=== PATIENT | female | born 1940 | race Caucasian/White ===

== ENCOUNTER 2016-04-27 10:35 | Emergency (ER) | payer OTHER, MEDICARE ==
[~2016-04-27 10:35] MED LIST: ACET-1256 PO; CHOL100027 PO; CYAN100020 PO; DOCU100C31 PO; LEVO88TA PO; LISI5TAB PO; MAGN400T6 PO; OMEP10CA2 PO; PRLSR20 PO
[2016-04-27 10:40] VITALS: TEMP 36.8; Ht 179.1 cm
[2016-04-27] MEDS ORDERED: FERR1TAB24 PO (11:21)
[2016-04-27] MEDS ORDERED: PRLSRP PO (11:21)
[2016-04-27] MEDS ORDERED: NF406 PO (11:21)
[2016-04-27] MEDS ORDERED: OPTIRAY 320 IV PRN (12:15)
[2016-04-27 12:25] VITALS: O2SAT 97
[2016-04-27 12:48] LABS: BASO % 0.7 %; BASO ABS # 0.03 K/uL (0-0.2); COMPLETE YES; EOS % 1.3 %; HEMATOCRIT 41.2 % (37-47); IG% 0.2 %; LYMPH % 38.7 %; LYMPH ABS # 1.78 K/uL (1.2-3.4); MEAN CELL VOLUME 93.8 fL (80-100); MEAN CORPUSCULAR HEMOGLOBIN 32.3 pg (25-34); MEAN CORPUSCULAR HGB CONC 34.5 g/dl (32-36); MEAN PLATELET VOLUME 9.8 fL (7.4-10.4); MONO % 15.4 %; NEUT % 43.7 %; PLATELET COUNT 186 K/uL (130-400); RED BLOOD COUNT 4.39 M/uL (4.2-5.4)
[2016-04-27 13:00] LABS: PROTHROMBIN TIME (PATIENT) 10.5 SECONDS (9.0-12.0)
[2016-04-27 13:06] LABS: BLOOD UREA NITROGEN 15 mg/dl (7-18); BUN/CREATININE RATIO 21.4 (10-20); CALCIUM 8.8 mg/dl (8.5-10.1); CARBON DIOXIDE 26 mmol/L (21-32); CHLORIDE 103 mmol/L (98-107); CREATININE 0.72 mg/dl (0.60-1.20); GLUCOSE 92 mg/dl (70-99); SODIUM 136 mmol/L (136-145)
--- NOTE | 2016-04-27 14:30 | DIAGNOSTIC IMAGING REPORT ---
CHEST CTA for PULMONARY ARTERIES CT DOSE: 503.36 mGycm HISTORY: Chest pain dyspnea TECHNIQUE: Multiaxial CT images of the chest were performed following the intravenous administration of contrast to evaluate the pulmonary arteries. Maximal intensity projection images were also obtained. COMPARISON STUDY: 12/17/2015 FINDINGS: There is a normal caliber thoracic aorta with no evidence for dissection. There is no evidence for pulmonary embolus. No pleural effusions. No pneumothorax. The liver and spleen are unremarkable. No mediastinal or hilar lymphadenopathy. The central airways are patent. The lungs are clear. Slight chronic interstitial prominence throughout both hemithoraces. IMPRESSION: No evidence for pulmonary embolus. Slight nonspecific interstitial prominence Electronically signed by: Francisco Escobar M.D. 04/27/2016 2:29 PM Dictated Date/Time: 04/27/2016 2:26 PM
[2016-04-27 16:29] VITALS: BP 138/86; PULSE 61; O2SAT 98
--- NOTE | 2016-04-27 18:25 | EMERGENCY ROOM VISIT NOTE ---
History Report prepared by Missy: Darrel Squires Under the Supervision of: Dr. Bora Corona M.D. First contact with patient: 11:59 Chief Complaint: FLU LIKE SX Stated Complaint: FLU X 6 DAYS, CP, PNEUMONIA/EMBOLISM History of Present Illness The patient is a 76 year old female who presents to the Emergency Room with complaints of persistent left upper back pain for the past few days. The patient notes that she was diagnosed with the flu 5 days ago and started having symptoms 6 days ago. The patient complained of cough, fever, and shortness of breath. She notes that over the past couple of days she has had worsening back pain and some chest pain that feels similar to the back pain. She rates her back pain as a 4 out of 10 in severity and describes it as dull and achy. The discomfort is somewhat relieved when she is sitting up and worsened when she is laying down. The patient presented to the ED today because she was concerned for pneumonia or blood clots since she has a history of these and is experiencing similar symptoms. She denies leg swelling or pain. The patient recently drove to [place] over the weekend. Source of History: patient Onset: the past few days Position: back (upper left) Symptom Intensity: 4/10 in severity Quality: ache, dull Modifying Factors (Worsening): other (laying down) Modifying Factors (Relieving): other (sitting up) Associated Symptoms: + SOB, + chest pain, + cough, + fevers Note: Denies: leg swelling or pain Review of Systems See HPI for pertinent positives & negatives. A total of 10 systems reviewed and were otherwise negative. Past Medical & Surgical Medical Problems: (1) Benign hypertension (2) DVT (deep venous thrombosis) (3) Gastroesophageal reflux disease (4) Hiatal hernia (5) Hyperlipidemia (6) Low back pain with sciatica (7) Pulmonary embolism (8) Right Hip DJD Surgical Problems: (1) S/P knee replacement Family History No significant family history Social History Smoking Status: Never Smoker Alcohol Use: occasionally Marital Status: Housing Status: lives with family Occupation Status: retired Current/Historical Medications Scheduled Aspirin (Aspirin 81), 81 MG PO DAILY Cholecalciferol (Vitamin D 1000 Unit), 1,000 INTER.UNIT PO BID Cyanocobalamin (Vitamin B12), 1,000 MCG PO HS Ferrous Sulfate (Feosol), 65 MG PO DAILY Fish Oil ([place]-3), 1,200 MG PO QAM Flaxseed (Linseed) (Flax Oil), 1,200 MG PO HS Levothyroxine Sodium (Synthroid), 88 MCG PO QAM Lisinopril (Prinivil), 5 MG PO QAM Multivitamins (Daily Darnell), 1 TAB PO DAILY Omeprazole (Prilosec), 20 MG PO Q2D Omeprazole (Prilosec), 10 MG PO Q2D Oseltamivir Phosphate (Tamiflu), 75 MG PO BID Simvastatin (Zocor), 5 MG PO HS [Iron], 65 MG PO DAILY Scheduled PRN Acetaminophen (Tylenol), 500 MG PO UD PRN for Pain Docusate Sodium (Docusate Sodium), 100 MG PO DAILY PRN for Constipation Allergies Coded Allergies: Adhesives (Verified Allergy, Unknown, REDNESS FROM EKG PATCHES, 04/27/16) Codeine (Verified Allergy, Unknown, DOPEY, 04/27/16) Lorazepam (Verified Allergy, Unknown, NAUSEA, 04/27/16) Oxycodone (Verified Allergy, Unknown, NAUSEA AND VOMITING, 04/27/16) POLLEN (Verified Allergy, Unknown, EYES AND THROAT ITCHY, 04/27/16) Propoxyphene (Verified Allergy, Unknown, nausea, 04/27/16) N/V--NEARLY COMATOSE? Erythromycin (Verified Adverse Reaction, Unknown, NAUSEA, 04/27/16) Morphine (Verified Adverse Reaction, Unknown, HALLUCINATIONS, 04/27/16) Prednisone (Verified Adverse Reaction, Unknown, "High dose prednisone" -- extreme anxiety, 04/27/16) Tramadol (Verified Adverse Reaction, Unknown, "loopy", 04/27/16) Physical Exam Vital Signs Date Time Temp Pulse Resp B/P Pulse Ox O2 Delivery O2 Flow Rate FiO2 04/27/16 16:29 61 16 138/86 98 04/27/16 15:03 58 15 133/80 95 Room Air 04/27/16 13:52 61 16 134/67 96 Room Air 04/27/16 12:41 66 04/27/16 12:25 62 18 154/62 96 Room Air 04/27/16 12:25 97 Room Air 04/27/16 10:40 36.8 70 18 135/106 97 Room Air Physical Exam Constitutional: Vital signs reviewed. Eyes: Pupils are equal round reactive to light. Conjunctiva are noninjected. ENT: Pharynx is clear without erythema or exudate. Mucous membranes are moist. Neck supple without meningeal signs. Respiratory: Clear to auscultation bilaterally. Breath sounds are equal bilaterally. Cardiovascular: Regular rate and rhythm. No rubs or gallops. GI: Soft, nondistended and nontender. Bowel sounds are present. Musculoskeletal: No peripheral edema. No lower extremity tenderness. Left chest wall and left mid-thoracic tenderness to palpation. Integumentary: No cyanosis. Neurological: The patient is awake and alert. No focal deficits. Psychiatric: Normal affect. Medical Decision & Procedures ER Provider Diagnostic Interpretation: Radiology results as stated below per my review and the radiologist's interpretation: CHEST CTA for PULMONARY ARTERIES CT DOSE: 503.36 mGycm HISTORY: Chest pain dyspnea TECHNIQUE: Multiaxial CT images of the chest were performed following the intravenous administration of contrast to evaluate the pulmonary arteries. Maximal intensity projection images were also obtained. COMPARISON STUDY: 12/17/2015 FINDINGS: There is a normal caliber thoracic aorta with no evidence for dissection. There is no evidence for pulmonary embolus. No pleural effusions. No pneumothorax. The liver and spleen are unremarkable. No mediastinal or hilar lymphadenopathy. The central airways are patent. The lungs are clear. Slight chronic interstitial prominence throughout both hemithoraces. IMPRESSION: No evidence for pulmonary embolus. Slight nonspecific interstitial prominence Electronically signed by: Francisco Escobar M.D. 04/27/2016 2:29 PM Dictated Date/Time: 04/27/2016 2:26 PM Laboratory Results 04/27/16 12:30 Red Blood Count 4.39, Mean Corpuscular Volume 93.8, Mean Corpuscular Hemoglobin 32.3, Mean Corpuscular Hemoglobin Concent 34.5, Mean Platelet Volume 9.8, Neutrophils (%) (Auto) 43.7, Lymphocytes (%) (Auto) 38.7, Monocytes (%) (Auto) 15.4, Eosinophils (%) (Auto) 1.3, Basophils (%) (Auto) 0.7, Neutrophils # (Auto ) 2.01, Lymphocytes # (Auto) 1.78, Monocytes # (Auto) 0.71, Eosinophils # (Auto ) 0.06, Basophils # (Auto) 0.03 04/27/16 12:30 Test 04/27/16 12:30 04/27/16 15:18 White Blood Count 4.60 K/uL (4.8-10.8) Red Blood Count 4.39 M/uL (4.2-5.4) Hemoglobin 14.2 g/dL (12.0-16.0) Hematocrit 41.2 % (37-47) Mean Corpuscular Volume 93.8 fL (80-100) Mean Corpuscular Hemoglobin 32.3 pg (25-34) Mean Corpuscular Hemoglobin Concent 34.5 g/dl (32-36) Platelet Count 186 K/uL (130-400) Mean Platelet Volume 9.8 fL (7.4-10.4) Neutrophils (%) (Auto) 43.7 % Lymphocytes (%) (Auto) 38.7 % Monocytes (%) (Auto) 15.4 % Eosinophils (%) (Auto) 1.3 % Basophils (%) (Auto) 0.7 % Neutrophils # (Auto) 2.01 K/uL (1.4-6.5) Lymphocytes # (Auto) 1.78 K/uL (1.2-3.4) Monocytes # (Auto) 0.71 K/uL (0.11-0.59) Eosinophils # (Auto) 0.06 K/uL (0-0.5) Basophils # (Auto) 0.03 K/uL (0-0.2) RDW Standard Deviation 46.0 fL (36.4-46.3) RDW Coefficient of Variation 13.3 % (11.5-14.5) Immature Granulocyte % (Auto) 0.2 % Immature Granulocyte # (Auto) 0.01 K/uL (0.00-0.02) Prothrombin Time 10.5 SECONDS (9.0-12.0) Prothromb Time International Ratio 1.0 (0.9-1.1) Activated Partial Thromboplast Time 24.9 SECONDS (21.0-31.0) Partial Thromboplastin Ratio 1.0 Anion Gap 7.0 mmol/L (3-11) Estimated GFR () 94.3 Estimated GFR (Non- 81.3 BUN/Creatinine Ratio 21.4 (10-20) Calcium Level 8.8 mg/dl (8.5-10.1) Bedside Troponin I 0.000 ng/ml (0-0.045) Laboratory results as reviewed by me. ECG Indication: back/shoulder pain Rate (beats per minute): 86 Rhythm: normal sinus Findings: no acute ischemic change, no ectopy ED Course 1202: The patient was evaluated in room C8. A complete history and physical exam was performed. 1536: Upon reevaluation, the patient appeared to have improvement of her symptoms. I discussed tonight's findings with her. She verbalized agreement of the treatment plan. The patient was discharged home. Medical Decision This is a 76-year-old female who presents with left thoracic pain and resolved chest pain. Differential diagnosis includes pleurisy, pneumonia, pneumothorax, pulmonary embolism, RI, musculoskeletal pain. I did perform a limited focused review of portions of the patient's old chart on the electronic medical record. The patient was admitted in December of last year for chest pain. CT of chest was negative for pulmonary embolism. I did evaluate the patient as noted above. The patient was recently diagnosed with influenza. She was placed on Tamiflu. She is presenting with left thoracic pain and chest pain. On examination she has reproducible tenderness in both of these areas. She does, however, state that she had similar pain when she was diagnosed with a pulmonary embolism. IV access was established. The patient was placed on a continuous secured entrance monitor. I did order and personally review the patient's 12-lead EKG as described above. There are no acute ischemic changes. I did order and review the patient's blood work as noted in the electronic medical record. I did order a troponin 2 which were both negative. I did order a CT of the chest. I did review the images myself as well as the radiology report as described above. She does not have any evidence of pulmonary embolism or infiltrate. She does have some mild increased interstitial markings which are nonspecific. I did discuss the test results with the patient including the nonspecific interstitial markings. She does understand this may represent a very early pneumonia but after discussion we decided to not treat this as a potential pneumonia. She will watch for signs of fever or worsening flulike symptoms and return if she should develop these. She also understands the limitations of the workup done here in regard to her chest pain and cardiac disease. She will follow up closely with her doctor for further evaluation and possible outpatient stress testing. She was discharged in good condition. Impression Primary Impression: Left sided chest pain Additional Impressions: Thoracic back pain Influenza Scribe Attestation The scribe's documentation has been prepared under my direct and personally reviewed by me in its entirety. I confirm that the note above accurately reflects all work, treatment, procedures, and medical decision making performed by me. Departure Information Dispostion Home / Self-Care Referrals Aisha Matthew DO (PCP) Forms HOME CARE DOCUMENTATION FORM, IMPORTANT VISIT INFORMATION Patient Instructions ED Chest Pain Atypical Unkn Cause, My [facility] Additional Instructions You have been examined and treated today on an emergency basis only. This is not a substitute for, or an effort to provide, complete comprehensive medical care. It is impossible to recognize and treat all injuries or illnesses in a single emergency department visit. It is therefore important that you follow up closely with your physician. Call as soon as possible for an appointment. Return for worsening symptoms or if you develop fever, vomiting, or any other concerning symptoms. Problem Qualifiers Additional Impressions: Thoracic back pain Chronicity: acute Back pain laterality: left Qualified Codes: M54.6 - Pain in thoracic spine
[2016-07-27] MEDS ORDERED: LEVO75TA PO (14:38)
[2016-08-13] MEDS ORDERED: CRD200 PO ×2 (11:31→15:17)
[2016-08-22] MEDS ORDERED: ASPI-435 PO (00:54)
[2016-08-22] MEDS ORDERED: MULT-589 PO (00:55)
[2016-08-22] MEDS ORDERED: IRON PO (05:34)
[2016-08-22] MEDS ORDERED: SIMV5TAB2 PO (09:51)
[2016-08-22] MEDS ORDERED: FLAXOIL2 PO (09:51)
[2016-08-22] MEDS ORDERED: OMEG10007 PO (14:56)
== END 2016-04-27 16:30 | disposition home or self-care (01) ==
LOC: C.EDB 10:39 → C.EDC 16:30
DX: R07.89 Other chest pain (principal); M54.6 Pain in thoracic spine; J11.1 Influenza due to unidentified influenza virus with other respiratory manifestations; I10 Essential (primary) hypertension; M16.11 Unilateral primary osteoarthritis, right hip; E78.5 Hyperlipidemia, unspecified; K21.9 Gastro-esophageal reflux disease without esophagitis; Z86.711 Personal history of pulmonary embolism; Z86.718 Personal history of other venous thrombosis and embolism; Z96.659 Presence of unspecified artificial knee joint; Z79.82 Long term (current) use of aspirin; Z79.899 Other long term (current) drug therapy

== ENCOUNTER → 2016-05-07 | Outpatient (CLI) | payer OTHER, MEDICARE ==
[~2016-05-07] MED LIST changes: +AMIO200T4 PO; +ASPI-435 PO; +BISA10SU38 PR; +BUSP5TAB59 PO; +CLC100 PO; +CRD200 PO; +FERR1TAB24 PO; +FLAXOIL2 PO; +GABA1CAP4 PO; +IBUP-1277 PO; +IRON PO; +LEVO75TA PO; +LEVO75TA5 PO; +LEVO88TA3 PO; -MAGN400T6 PO; +MULT-589 PO; +NF406 PO; +OMEG10007 PO; -OMEP10CA2 PO; +OMEP40CA41 PO; +ONDA4TAB10 SL; +POLY335019 PO; +PRLSRP PO; +SIMV5TAB2 PO; +SODIENE PR; +SYN88 PO
--- NOTE | 2016-05-07 11:07 | DIAGNOSTIC IMAGING REPORT ---
CHEST 2 VIEWS ROUTINE HISTORY: Atypical chest pain. COMPARISON: Chest 12/17/2015. FINDINGS: The lungs are clear. Cardiac silhouette is normal in size. No pleural effusions. No pneumothorax. IMPRESSION: No acute process. Electronically signed by: El Keene M.D. 05/07/2016 11:05 AM Dictated Date/Time: 05/07/2016 11:04 AM
== END | disposition home or self-care (01) ==
LOC: C.RAD 10:15
PROVIDERS: ATTEND Family Medicine
DX: R07.9 Chest pain, unspecified (principal)

== ENCOUNTER → 2016-06-19 | Outpatient (CLI) | payer OTHER, MEDICARE ==
[2016-06-19 13:13] LABS: BASO % 0.4 %; BASO ABS # 0.02 K/uL (0-0.2); COMPLETE YES; EOS % 3.4 %; HEMATOCRIT 42.6 % (37-47); IG% 0.2 %; LYMPH % 29.7 %; LYMPH ABS # 1.65 K/uL (1.2-3.4); MEAN CELL VOLUME 98.2 fL (80-100); MEAN CORPUSCULAR HEMOGLOBIN 32.5 pg (25-34); MEAN CORPUSCULAR HGB CONC 33.1 g/dl (32-36); MONO % 9.5 %; NEUT % 56.8 %; PLATELET COUNT 248 K/uL (130-400); RED BLOOD COUNT 4.34 M/uL (4.2-5.4); WHITE BLOOD COUNT 5.56 K/uL (4.8-10.8)
[2016-06-19 14:31] LABS: ALKALINE PHOSPHATASE 75 U/L (45-117); ALT/SGPT 25 U/L (12-78); AST/SGOT 25 U/L (15-37); BLOOD UREA NITROGEN 19 mg/dl (7-18); BUN/CREATININE RATIO 24.7 (10-20); CALCIUM 8.8 mg/dl (8.5-10.1); CARBON DIOXIDE 28 mmol/L (21-32); CHLORIDE 107 mmol/L (98-107); CREATININE 0.75 mg/dl (0.60-1.20); GLUCOSE 82 mg/dl (70-99); MAGNESIUM 2.1 mg/dl (1.8-2.4); POTASSIUM 4.4 mmol/L (3.5-5.1); SODIUM 142 mmol/L (136-145)
[2016-06-19 14:42] LABS: FERRITIN 68.4 ng/ml (8.0-388.0); THYROID STIMULATING HORMONE 0.927 uIu/ml (0.300-4.500)
[2016-06-19 15:03] LABS: LYME DISEASE AB IGG NEG (NEG)
[2016-06-19 15:04] LABS: LYME DISEASE AB IGM NEG (NEG)
--- NOTE | 2016-06-25 12:17 | CODING QUERY MEDICAL NECESSITY ---
SUPPORTING DIAGNOSIS NEEDED A supporting diagnosis is required for the test/procedure performed on this patient in order for us to be reimbursed by the patient's insurance. Please provide a supporting diagnosis for the following test/procedure listed below next to the test name along with your signature. *If there is no additional diagnosis for this patient that would support the following test/procedure please document that below next to the test/procedure. Test(s)/Procedure(s) that require a supporting diagnosis: DOS 06/19 * Vitamin B12 DIAGNOSIS: * Iron DIAGNOSIS: Provider Signature: Date: Thank you Hortensia Rudd Health Information Management Once completed, please kindly fax back to [phone] For questions please call [phone]
== END | disposition home or self-care (01) ==
LOC: C.LAB1850 11:58
PROVIDERS: ATTEND Nurse Practitioner Family
DX: R60.9 Edema, unspecified (principal); M79.1 Myalgia; R53.83 Other fatigue; E03.9 Hypothyroidism, unspecified; M16.11 Unilateral primary osteoarthritis, right hip

== ENCOUNTER 2016-07-26 08:56 | Observation (INO) | payer OTHER, MEDICARE ==
[~2016-07-26] VITALS: Ht 177.8 cm; Wt 112.3 kg
[~2016-07-26 08:56] MED LIST changes: -AMIO200T4 PO; -ASPI-435 PO; -BISA10SU38 PR; -BUSP5TAB59 PO; -CLC100 PO; -CRD200 PO; -FLAXOIL2 PO; -GABA1CAP4 PO; -IBUP-1277 PO; -IRON PO; -LEVO75TA PO; -LEVO75TA5 PO; -LEVO88TA3 PO; -MULT-589 PO; -OMEG10007 PO; -OMEP40CA41 PO; -ONDA4TAB10 SL; -POLY335019 PO; -SIMV5TAB2 PO; -SODIENE PR; -SYN88 PO
[2016-07-26] MEDS ORDERED: LEVO75TA PO (09:31)
[2016-07-26] MEDS ORDERED: IBUP-1277 PO (09:36)
[2016-07-26] MEDS ORDERED: ONDANSETRON INJ 2 MG/ML 2 ML VIAL IV STA (09:41)
[2016-07-26] MEDS ORDERED: SODIUM CHLORIDE 0.9% 1000ML 1,000 ML IV STA (09:41)
[2016-07-26 09:52] LABS: BASO % 0.3 %; BASO ABS # 0.02 K/uL (0-0.2); COMPLETE YES; EOS % 3.9 %; HEMATOCRIT 42.1 % (37-47); IG% 0.2 %; LYMPH % 39.5 %; LYMPH ABS # 2.44 K/uL (1.2-3.4); MEAN CELL VOLUME 95.9 fL (80-100); MEAN CORPUSCULAR HEMOGLOBIN 33.3 pg (25-34); MEAN CORPUSCULAR HGB CONC 34.7 g/dl (32-36); MEAN PLATELET VOLUME 10.2 fL (7.4-10.4); MONO % 11.5 %; NEUT % 44.6 %; PLATELET COUNT 226 K/uL (130-400); RED BLOOD COUNT 4.39 M/uL (4.2-5.4); WHITE BLOOD COUNT 6.18 K/uL (4.8-10.8)
--- NOTE | 2016-07-26 09:57 | DIAGNOSTIC IMAGING REPORT ---
CHEST ONE VIEW PORTABLE HISTORY: Atypical Chest Pain COMPARISON: Chest 05/07/2016. FINDINGS: The lungs are clear. Cardiac silhouette is normal in size. No pleural effusions. No pneumothorax. IMPRESSION: No acute process. Electronically signed by: El Keene M.D. 07/26/2016 9:56 AM Dictated Date/Time: 07/26/2016 9:55 AM
[2016-07-26 10:04] LABS: ALT/SGPT 29 U/L (12-78); AST/SGOT 24 U/L (15-37); BLOOD UREA NITROGEN 24 mg/dl (7-18); BUN/CREATININE RATIO 26.5 (10-20); CARBON DIOXIDE 26 mmol/L (21-32); CHLORIDE 107 mmol/L (98-107); CREATININE 0.91 mg/dl (0.60-1.20); GLUCOSE 99 mg/dl (70-99); POTASSIUM 3.9 mmol/L (3.5-5.1); SODIUM 141 mmol/L (136-145)
[2016-07-26 10:05] LABS: CALCIUM 9.3 mg/dl (8.5-10.1)
[2016-07-26 10:09] LABS: ALKALINE PHOSPHATASE 71 U/L (45-117); CKMB/CK RATIO 2.1 (0-3.0)
[2016-07-26] MEDS ORDERED: ASPIRIN 81 MG CHEW PO STA (10:47)
[2016-07-26] MEDS ORDERED: OPTIRAY 320 IV PRN (11:00)
--- NOTE | 2016-07-26 11:32 | DIAGNOSTIC IMAGING REPORT ---
CT ANGIOGRAM OF THE CHEST CLINICAL HISTORY: Atypical chest pain. COMPARISON STUDY: Chest x-ray dated 07/26/2016. Chest CT scans dated 04/27/2016 and 02/15/2014. TECHNIQUE: Following the IV administration of 117 cc of Optiray 320, CT angiogram of the chest was performed from the upper abdomen to the thoracic inlet utilizing the pulmonary embolus protocol. Images are reviewed in the axial, sagittal, and coronal planes. 3-D MIPS images are created and assessed. IV contrast was administered without complication. CT DOSE: 499.67 mGy.cm FINDINGS: Thyroid: Markedly atrophic. Thoracic aorta: There is mild atherosclerotic calcification of the thoracic aorta, which is normal in caliber and demonstrates standard 3-vessel arch anatomy. The thoracic aorta is not well opacified.. Pulmonary vasculature: The main pulmonary arteries are dilated suggesting pulmonary artery hypertension. There are no filling defects identified in main, lobar, or segmental pulmonary branches to suggest pulmonary embolus. Heart: The heart is enlarged and without pericardial effusion. There are coronary artery calcifications. Lungs and pleural spaces: Evaluation of the lung parenchyma is modestly degraded by respiratory motion artifact. No airspace consolidation or pleural effusion is seen. Dependent atelectasis is noted. The trachea and central airways are clear. Mediastinum: There is no mediastinal lymphadenopathy. Melania: There are calcified left hilar lymph nodes. No hilar adenopathy is seen. Axillae: There is no axillary lymphadenopathy. Upper abdomen: There is a small hiatal hernia with evidence of previous surgery at the gastroesophageal junction. Calcified splenic granulomas are noted. Skeletal structures: The skeletal structures are osteopenic. Mild degenerative change is noted throughout the thoracic spine. No lytic or blastic bony lesions are seen. IMPRESSION: 1. There is no evidence of pulmonary embolus in the main, lobar, or segmental pulmonary arteries. 2. Cardiomegaly. 3. There is no airspace consolidation or pleural effusion. Electronically signed by: Salomon Jose M.D. 07/26/2016 11:30 AM Dictated Date/Time: 07/26/2016 11:25 AM
--- NOTE | 2016-07-26 12:17 | History and Physical ---
History & Physical Date & Time of Service: July 26, 2016 at 12:15 Chief Complaint: Chest And Abd Pain,Dizzy Primary Care Physician: Aisha Matthew, History of Present Illness Source: patient This is a 76-year-old female with a past medical history of hypertension, hyperlipidemia, hypothyroidism, history of DVT and PE not on anticoagulation any longer, GERD, hiatal hernia and anxiety. Patient presents after 24 hours of worsening left-sided chest pain. She reports this started initially around noon yesterday while she was cleaning. The patient took one 500 mg Tylenol tablets but pain was not relieved. She continued to clean her house. Patient is expecting a house full of people this weekend and was prepping for their arrival. She reports that last evening the pain continued to worsen while she was lying down in bed, and began to radiate to her back and down into her left arm and rest. It did not radiate to the jaw. She denies taking any medication for this pain. Overnight she got minimal sleep. Patient presented to the ER today after she was unable to get an appointment with her PCP until later this afternoon. Patient does report that she was slightly nauseous this morning but did not vomit. She denies any headache, lightheadedness, dizziness, palpitation , flutter. He did not take any of her normal medications today, and has not eaten anything. The patient has felt increasingly anxious over the last month but reports there is no trigger factor. She also occasionally notes shortness of breath when climbing one flight of stairs, approximately 13 steps. The patient lives at home with her son, is not using anything for ambulation assistance and does not wear chronic supplemental oxygen. Here in the ER the patient's workup thus far has been essentially negative, despite a mildly elevated blood pressure with systolics in the 150s to 160s. Initial cardiac biomarkers are negative. Chest x-ray was completed and negative , CTPE was completed due to an elevated d-dimer but is also negative. EKG appears to be in normal sinus rhythm without any ST wave inversions or signs of ischemia. 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 (7) Pulmonary embolism Status: Resolved Surgical Problems: (1) S/P knee replacement Status: Resolved Family History No significant family history Social History Smoking Status: Never Smoker Smokeless Tobacco Use: No Alcohol Use: none Drug Use: none Marital Status: Housing status: lives with family Occupational Status: retired Immunizations History of Influenza Vaccine: Yes Influenza Vaccine Date: Nov 13, 2014 History of Tetanus Vaccine?: Unknown Tetanus Immunization Date: Jun 29, 2009 History of Pneumococcal: Yes Pneumococcal Date: Aug 26, 2014 History of Hepatitis B Vaccine: Unknown Multi-Drug Resistant Organisms History of MDRO: No Allergies Coded Allergies: Adhesives (Verified Allergy, Unknown, REDNESS FROM EKG PATCHES, 04/27/16) Codeine (Verified Allergy, Unknown, DOPEY, 04/27/16) Lorazepam (Verified Allergy, Unknown, NAUSEA, 04/27/16) Oxycodone (Verified Allergy, Unknown, NAUSEA AND VOMITING, 04/27/16) POLLEN (Verified Allergy, Unknown, EYES AND THROAT ITCHY, 04/27/16) Propoxyphene (Verified Allergy, Unknown, nausea, 04/27/16) N/V--NEARLY COMATOSE? Erythromycin (Verified Adverse Reaction, Unknown, NAUSEA, 04/27/16) Morphine (Verified Adverse Reaction, Unknown, HALLUCINATIONS, 04/27/16) Prednisone (Verified Adverse Reaction, Unknown, "High dose prednisone" -- extreme anxiety, 04/27/16) Tramadol (Verified Adverse Reaction, Unknown, "loopy", 04/27/16) Home Medications Scheduled Aspirin (Aspirin 81), 81 MG PO DAILY Cholecalciferol (Vitamin D 1000 Unit), 1,000 INTER.UNIT PO BID Fish Oil (Tell-3), 1,200 MG PO QAM Flaxseed (Linseed) (Flax Oil), 1,200 MG PO HS Levothyroxine Sodium (Synthroid), 75 MCG PO DAILY Lisinopril (Prinivil), 5 MG PO QAM Multivitamins (Daily Darnell), 2 TAB PO DAILY Simvastatin (Zocor), 5 MG PO HS [Iron], 65 MG PO DAILY Scheduled PRN Acetaminophen (Tylenol), 500 MG PO UD PRN for Pain Ibuprofen (Advil), 200 MG PO DIRECTED PRN for Pain Review of Systems Constitutional: No fever, sweats or chills Eyes: No diplopia, no worsening or blurred vision ENT: normal hearing, no trouble swallowing Respiratory: No cough, sputum, dyspnea at rest or on exertion Cardiovascular: See history of present illness Abdomen: No pain, + nausea, no vomiting, no diarrhea or constipation Musculoskeletal: No joint pain, calf pain, swelling Neurologic: No weakness, numbness/tingling, or balance problems Psychiatric: + anxiety, no depression Skin: No rash or itch Physical Exam Vital Signs Date Time Temp Pulse Resp B/P Pulse Ox O2 Delivery O2 Flow Rate FiO2 07/26/16 10:54 63 18 155/57 98 Room Air 07/26/16 09:25 70 07/26/16 09:00 36.6 69 18 153/89 98 Room Air General: awake, alert, no apparent distress Head: Normocephalic, atraumatic ENT: PERRL, EOMI, no pharyngeal exudate, mucous membranes moist Chest: Clear to auscultation, on room air, no adventitious breath sounds Cardiac: Regular rate and rhythm, no murmur, no chest wall tenderness with palpation, no JVD, normal peripheral pulses, good capillary refill Abdominal: NABS x 4 quadrants, soft, nontender to palpation, no rebound, guarding or tenderness Extremities: Normal inspection, no peripheral edema or erythema, calfs nontender to palpation, + varicose veins on bilateral lower ext. Psych: Normal mood and affect Neuro: AAO x 3, strength intact bilaterally and related 5/5, no motor deficits, speech is clear, no peripheral sensory deficits Diagnostics Laboratory Results Results Past 24 Hours Test 07/26/16 09:20 Range/Units White Blood Count 6.18 4.8-10.8 K/uL Red Blood Count 4.39 4.2-5.4 M/uL Hemoglobin 14.6 12.0-16.0 g/dL Hematocrit 42.1 37-47 % Mean Corpuscular Volume 95.9 80-100 fL Mean Corpuscular Hemoglobin 33.3 25-34 pg Mean Corpuscular Hemoglobin Concent 34.7 32-36 g/dl Platelet Count 226 130-400 K/uL Mean Platelet Volume 10.2 7.4-10.4 fL Neutrophils (%) (Auto) 44.6 % Lymphocytes (%) (Auto) 39.5 % Monocytes (%) (Auto) 11.5 % Eosinophils (%) (Auto) 3.9 % Basophils (%) (Auto) 0.3 % Neutrophils # (Auto) 2.76 1.4-6.5 K/uL Lymphocytes # (Auto) 2.44 1.2-3.4 K/uL Monocytes # (Auto) 0.71 0.11-0.59 K/uL Eosinophils # (Auto) 0.24 0-0.5 K/uL Basophils # (Auto) 0.02 0-0.2 K/uL RDW Standard Deviation 45.6 36.4-46.3 fL RDW Coefficient of Variation 13.1 11.5-14.5 % Immature Granulocyte % (Auto) 0.2 % Immature Granulocyte # (Auto) 0.01 0.00-0.02 K/uL D-Dimer 6070 0-500 ug/L FEU Sodium Level 141 136-145 mmol/L Potassium Level 3.9 3.5-5.1 mmol/L Chloride Level 107 98-107 mmol/L Carbon Dioxide Level 26 21-32 mmol/L Anion Gap 8.0 3-11 mmol/L Blood Urea Nitrogen 24 7-18 mg/dl Creatinine 0.91 0.60-1.20 mg/dl Est Creatinine Clear Calc Drug Dose 71.5 ml/min Estimated GFR () 71.0 Estimated GFR (Non- 61.3 BUN/Creatinine Ratio 26.5 10-20 Random Glucose 99 70-99 mg/dl Calcium Level 9.3 8.5-10.1 mg/dl Total Bilirubin 0.6 0.2-1 mg/dl Direct Bilirubin 0.2 0-0.2 mg/dl Aspartate Amino Transf (AST/SGOT) 24 15-37 U/L Alanine Aminotransferase (ALT/SGPT) 29 12-78 U/L Alkaline Phosphatase 71 45-117 U/L Total Creatine Kinase 194 26-192 U/L Creatine Kinase MB 4.1 0.5-3.6 ng/ml Creatine Kinase MB Ratio 2.1 0-3.0 Troponin I < 0.015 0-0.045 ng/ml Total Protein 7.3 6.4-8.2 gm/dl Albumin 3.6 3.4-5.0 gm/dl Lipase 230 73-393 U/L Diagnostic Radiology CHEST ONE VIEW PORTABLE HISTORY: Atypical Chest Pain COMPARISON: Chest 05/07/2016. FINDINGS: The lungs are clear. Cardiac silhouette is normal in size. No pleural effusions. No pneumothorax. IMPRESSION: No acute process. Electronically signed by: El Keene M.D. 07/26/2016 9:56 AM Dictated Date/Time: 07/26/2016 9:55 AM The status of this report is Signed. CT ANGIOGRAM OF THE CHEST CLINICAL HISTORY: Atypical chest pain. COMPARISON STUDY: Chest x-ray dated 07/26/2016. Chest CT scans dated 04/27/2016 and 02/15/2014. TECHNIQUE: Following the IV administration of 117 cc of Optiray 320, CT angiogram of the chest was performed from the upper abdomen to the thoracic inlet utilizing the pulmonary embolus protocol. Images are reviewed in the axial, sagittal, and coronal planes. 3-D MIPS images are created and assessed. IV contrast was administered without complication. CT DOSE: 499.67 mGy.cm FINDINGS: Thyroid: Markedly atrophic. Thoracic aorta: There is mild atherosclerotic calcification of the thoracic aorta, which is normal in caliber and demonstrates standard 3-vessel arch anatomy. The thoracic aorta is not well opacified.. Pulmonary vasculature: The main pulmonary arteries are dilated suggesting pulmonary artery hypertension. There are no filling defects identified in main, lobar, or segmental pulmonary branches to suggest pulmonary embolus. Heart: The heart is enlarged and without pericardial effusion. There are coronary artery calcifications. Lungs and pleural spaces: Evaluation of the lung parenchyma is modestly degraded by respiratory motion artifact. No airspace consolidation or pleural effusion is seen. Dependent atelectasis is noted. The trachea and central airways are clear. Mediastinum: There is no mediastinal lymphadenopathy. Melania: There are calcified left hilar lymph nodes. No hilar adenopathy is seen. Axillae: There is no axillary lymphadenopathy. Upper abdomen: There is a small hiatal hernia with evidence of previous surgery at the gastroesophageal junction. Calcified splenic granulomas are noted. Skeletal structures: The skeletal structures are osteopenic. Mild degenerative change is noted throughout the thoracic spine. No lytic or blastic bony lesions are seen. IMPRESSION: 1. There is no evidence of pulmonary embolus in the main, lobar, or segmental pulmonary arteries. 2. Cardiomegaly. 3. There is no airspace consolidation or pleural effusion. Electronically signed by: Salomon Jose M.D. 07/26/2016 11:30 AM Dictated Date/Time: 07/26/2016 11:25 AM The status of this report is Signed. EKG Vent. rate 63 BPM CO interval 162 ms QRS duration 98 ms QT/QTc 420/429 ms P-R-T axes 41 -3 47 Poor data quality, interpretation may be adversely affected Sinus rhythm with occasional Premature ventricular complexes and Premature atrial complexes Otherwise normal ECG When compared with ECG of 27-APR-2016 11:00, Premature ventricular complexes are now Present Premature atrial complexes are now Present Confirmed by LEODAN ROBLES ([id number]) on 07/26/2016 12:03:23 PM Impression Assessment and Plan This is a 76-year-old female with a past medical history of hypertension, hyperlipidemia, hypothyroidism, history of DVT and PE not on anticoagulation any longer, GERD, hiatal hernia and anxiety. Chest pain r/o - admit to telemetry for observation - Patient does have significant family history of cardiac events: Father from [place] at age 63, mother from stroke, brother from MII, sister from lung cancer, She has 2 siblings who are alive and well and younger than her. - Follow cardiac biomarkers x 2 more sets, initial troponin was negative - EKG reviewed as above - Elevated d-dimer, CT PE was negative for any acute PE - NPO after 2400 for dobutamine stress test - Check lipids with am labs and hgb A1C - Nitro prn - Cont ASA 81 mg Hypertension - Continue lisinopril 5 mg daily Hypercholesterolemia - Continue simvastatin 20 mg daily, patient uses fish oil as an outpatient Hypothyroidism - Continue levothyroxine 75 g daily DVT prophylaxis: Teds, SCDs, Lovenox 40 mg subcutaneous CODE STATUS: Full code - patient notes that in in stages of life, diminished quality, or poor prognosis she would wish to be DNR Physician: Patient from home, lives with her son, anticipate discharge early tomorrow morning Level of Care Telemetry Advanced Directives Existing Advance Directive: Yes Existing Living Will: Yes Existing Power of Ingredient Mixer: Yes Existing Health Care Proxy: Yes Resuscitation Status FULL RESUSCITATION VTE Prophylaxis Risk Level: Low Given or contraindicated: Enoxaparin (Lovenox)SQ, T.E.D. Stockings, SCD's Reviewed: Pt Seen/Exam by Me History Pt states her chest pain, SOB, L UE pain are all resolved. She does have a mild headache now that she attributes to eating after having not eaten all day today. Pt has concerns about undergoing a treadmill stress test due to peripheral neuropathy and prior knee and hip replacements. She is not certain she will be able to complete it. She has had chemical stress in the past and would prefer this if possible. She has been eating without issue. Agree with HPI/ROS as noted. General Appearance: WD/WN, no apparent distress Respiratory: normal breath sounds, no respiratory distress Cardiovascular: normal peripheral pulses, regular rate, rhythm Gastrointestinal: non tender, soft Extremities: non-tender, no pedal edema Neurologic/Psychiatric: alert, normal mood/affect, oriented x 3 Skin Characteristics: normal color, warm/dry Assessment/Plan Agree with plan as outlined above Chest pain, SOB, L UE pain all resolved now Trop neg x1, serials pending EKG neg Monitor overnight and if trops remain neg, proceed with chemical stress in AM + ddimer, neg CTA--pt with hx of DVT/PE but no longer on anticoagulation VSS, no hypoxia
[2016-07-26] MEDS ORDERED: NITROGLYCERIN 0.4 MG SL PER TAB CHARGE SL PRN (12:45)
[2016-07-26] MEDS ORDERED: ONDANSETRON INJ 2 MG/ML 2 ML VIAL IV PRN (12:45)
[2016-07-26] MEDS ORDERED: POLYETHYLENE (MIRALAX) 17 GM PACK PO PRN (12:45)
[2016-07-26] MEDS ORDERED: ACETAMINOPHEN 325 MG TAB PO PRN (12:45)
[2016-07-26 13:30] VITALS: O2SAT 95
[2016-07-26 13:32] VITALS: Ht 177.8 cm; Wt 112.3 kg
[2016-07-26] MEDS ORDERED: IV FLUIDS COMPLETED PRN (13:45)
[2016-07-26 14:00] VITALS: BP 134/83; PULSE 64; TEMP 36.5; O2SAT 96
[2016-07-26 14:43] LABS: PROTHROMBIN TIME (PATIENT) 10.6 SECONDS (9.0-12.0)
--- NOTE | 2016-07-26 14:47 | EMERGENCY ROOM VISIT NOTE ---
History Report prepared by Missy: Krista Crowe Under the Supervision of: Dr. Shaw Atkins D.O. First contact with patient: 09:32 Chief Complaint: CHEST PAIN Stated Complaint: CHEST AND ABD PAIN,DIZZY Nursing Triage Summary: Abdominal and chest pain, ankle swelling History of Present Illness The patient is a 76 year old female who presents to the Emergency Room with complaints of intermittent left-sided chest pains since last night. She notes that she has been dizzy and lightheaded for the past couple of days. She denies feeling like the room is spinning or feeling like she is going to pass out. Last night she went to bed and was unable to sleep. She developed chest pains that radiated down into her left arm. This chest pain resolved when she got up and walked around. The patient states that every time she laid back down, her pain returned. She describes her pain as sharp and states that each episode of pain lasts few a few seconds. This morning she has had two episodes of this chest pain. She reports some shortness of breath and upper abdominal pain. The patient rates her pain as a 4/10 in severity. She notes that her ankles have been more swollen lately. She called her PCP and made an appointment for this afternoon, but came to the ED instead for further evaluation. The patient has had previous musculoskeletal chest pain and states that this feels similar to that pain, except for the shortness of breath and arm pain that she is now experiencing. She denies any previous heart attacks or cardiac catheterizations. She does have a history of PE. She takes a daily baby aspirin and denies any other blood thinners. The patient denies recent travel or surgery. She also denies hematemesis and jaw pain. She reports feeling anxious at this time. Source of History: patient Onset: last night Position: chest (left) Symptom Intensity: 4/10 Quality: sharp Timing: intermittent Modifying Factors (Worsening): other (laying flat) Modifying Factors (Relieving): other (walking around) Associated Symptoms: + SOB, + abdominal pain Note: Pt notes dizziness and lightheadedness. Pt notes legs are more swollen than usual. Review of Systems See HPI for pertinent positives & negatives. A total of 10 systems reviewed and were otherwise negative. Past Medical & Surgical Medical Problems: (1) Benign hypertension (2) DVT (deep venous thrombosis) (3) Gastroesophageal reflux disease (4) Hiatal hernia (5) Hyperlipidemia (6) Low back pain with sciatica (7) Pulmonary embolism (8) Right Hip DJD Surgical Problems: (1) S/P knee replacement Family History No significant family history Social History Smoking Status: Never Smoker Alcohol Use: occasionally Marital Status: Housing Status: lives with family Occupation Status: retired Current/Historical Medications Scheduled Aspirin (Aspirin 81), 81 MG PO DAILY Cholecalciferol (Vitamin D 1000 Unit), 1,000 INTER.UNIT PO BID Fish Oil ([place]-3), 1,200 MG PO QAM Flaxseed (Linseed) (Flax Oil), 1,200 MG PO HS Levothyroxine Sodium (Synthroid), 75 MCG PO DAILY Lisinopril (Prinivil), 5 MG PO QAM Multivitamins (Daily Darnell), 2 TAB PO DAILY Simvastatin (Zocor), 5 MG PO HS [Iron], 65 MG PO DAILY Scheduled PRN Acetaminophen (Tylenol), 500 MG PO UD PRN for Pain Ibuprofen (Advil), 200 MG PO DIRECTED PRN for Pain Allergies Coded Allergies: Adhesives (Verified Allergy, Unknown, REDNESS FROM EKG PATCHES, 04/27/16) Codeine (Verified Allergy, Unknown, DOPEY, 04/27/16) Lorazepam (Verified Allergy, Unknown, NAUSEA, 04/27/16) Oxycodone (Verified Allergy, Unknown, NAUSEA AND VOMITING, 04/27/16) POLLEN (Verified Allergy, Unknown, EYES AND THROAT ITCHY, 04/27/16) Propoxyphene (Verified Allergy, Unknown, nausea, 04/27/16) N/V--NEARLY COMATOSE? Erythromycin (Verified Adverse Reaction, Unknown, NAUSEA, 04/27/16) Morphine (Verified Adverse Reaction, Unknown, HALLUCINATIONS, 04/27/16) Prednisone (Verified Adverse Reaction, Unknown, "High dose prednisone" -- extreme anxiety, 04/27/16) Tramadol (Verified Adverse Reaction, Unknown, "loopy", 04/27/16) Physical Exam Vital Signs Date Time Temp Pulse Resp B/P Pulse Ox O2 Delivery O2 Flow Rate FiO2 07/26/16 12:31 156/81 07/26/16 12:02 170/66 07/26/16 12:00 67 12 07/26/16 11:40 158/82 5/25/17 10:54 63 18 155/57 98 Room Air 07/26/16 09:25 70 07/26/16 09:00 36.6 69 18 153/89 98 Room Air Physical Exam GENERAL: alert, disheveled appearing, sitting up in bed, well nourished, no distress, non-toxic EYE EXAM: normal conjunctiva OROPHARYNX: no exudate, no erythema, lips, buccal mucosa, and tongue normal and mucous membranes are moist NECK: supple, no nuchal rigidity, no adenopathy, non-tender LUNGS: Clear to auscultation. Normal chest wall mechanics HEART: no murmurs, S1 normal and S2 normal ABDOMEN: abdomen soft, non-tender, normo-active bowel sounds, no masses, no rebound or guarding. BACK: Back is symmetrical on inspection and there is no deformity, no midline tenderness, no CVA tenderness. SKIN: no rashes and no bruising UPPER EXTREMITIES: upper extremities are grossly normal. Radial pulses are equal bilaterally. LOWER EXTREMITIES: Faint pitting edema. Calves are equal bilaterally. NEURO EXAM: Normal sensorium, cranial nerves II-XII grossly intact, normal speech, no gross weakness of arms, no gross weakness of legs. Medical Decision & Procedures ER Provider Diagnostic Interpretation: Radiology results as stated below per my review and the radiologist's interpretation: CHEST ONE VIEW PORTABLE HISTORY: Atypical Chest Pain COMPARISON: Chest 05/07/2016. FINDINGS: The lungs are clear. Cardiac silhouette is normal in size. No pleural effusions. No pneumothorax. IMPRESSION: No acute process. Electronically signed by: El Keene M.D. 07/26/2016 9:56 AM Dictated Date/Time: 07/26/2016 9:[address] ANGIOGRAM OF THE CHEST CLINICAL HISTORY: Atypical chest pain. COMPARISON STUDY: Chest x-ray dated 07/26/2016. Chest CT scans dated 04/27/2016 and 02/15/2014. TECHNIQUE: Following the IV administration of 117 cc of Optiray 320, CT angiogram of the chest was performed from the upper abdomen to the thoracic inlet utilizing the pulmonary embolus protocol. Images are reviewed in the axial, sagittal, and coronal planes. 3-D MIPS images are created and assessed. IV contrast was administered without complication. CT DOSE: 499.67 mGy.cm FINDINGS: Thyroid: Markedly atrophic. Thoracic aorta: There is mild atherosclerotic calcification of the thoracic aorta, which is normal in caliber and demonstrates standard 3-vessel arch anatomy. The thoracic aorta is not well opacified.. Pulmonary vasculature: The main pulmonary arteries are dilated suggesting pulmonary artery hypertension. There are no filling defects identified in main, lobar, or segmental pulmonary branches to suggest pulmonary embolus. Heart: The heart is enlarged and without pericardial effusion. There are coronary artery calcifications. Lungs and pleural spaces: Evaluation of the lung parenchyma is modestly degraded by respiratory motion artifact. No airspace consolidation or pleural effusion is seen. Dependent atelectasis is noted. The trachea and central airways are clear. Mediastinum: There is no mediastinal lymphadenopathy. Melania: There are calcified left hilar lymph nodes. No hilar adenopathy is seen. Axillae: There is no axillary lymphadenopathy. Upper abdomen: There is a small hiatal hernia with evidence of previous surgery at the gastroesophageal junction. Calcified splenic granulomas are noted. Skeletal structures: The skeletal structures are osteopenic. Mild degenerative change is noted throughout the thoracic spine. No lytic or blastic bony lesions are seen. IMPRESSION: 1. There is no evidence of pulmonary embolus in the main, lobar, or segmental pulmonary arteries. 2. Cardiomegaly. 3. There is no airspace consolidation or pleural effusion. Electronically signed by: Salomon Jose M.D. 07/26/2016 11:30 AM Dictated Date/Time: 07/26/2016 11:25 AM Laboratory Results 07/26/16 09:20 Red Blood Count 4.39, Mean Corpuscular Volume 95.9, Mean Corpuscular Hemoglobin 33.3, Mean Corpuscular Hemoglobin Concent 34.7, Mean Platelet Volume 10.2, Neutrophils (%) (Auto) 44.6, Lymphocytes (%) (Auto) 39.5, Monocytes (%) (Auto) 11.5, Eosinophils (%) (Auto) 3.9, Basophils (%) (Auto) 0.3, Neutrophils # (Auto ) 2.76, Lymphocytes # (Auto) 2.44, Monocytes # (Auto) 0.71, Eosinophils # (Auto ) 0.24, Basophils # (Auto) 0.02 07/26/16 09:20 Test 07/26/16 09:20 White Blood Count 6.18 K/uL (4.8-10.8) Red Blood Count 4.39 M/uL (4.2-5.4) Hemoglobin 14.6 g/dL (12.0-16.0) Hematocrit 42.1 % (37-47) Mean Corpuscular Volume 95.9 fL (80-100) Mean Corpuscular Hemoglobin 33.3 pg (25-34) Mean Corpuscular Hemoglobin Concent 34.7 g/dl (32-36) Platelet Count 226 K/uL (130-400) Mean Platelet Volume 10.2 fL (7.4-10.4) Neutrophils (%) (Auto) 44.6 % Lymphocytes (%) (Auto) 39.5 % Monocytes (%) (Auto) 11.5 % Eosinophils (%) (Auto) 3.9 % Basophils (%) (Auto) 0.3 % Neutrophils # (Auto) 2.76 K/uL (1.4-6.5) Lymphocytes # (Auto) 2.44 K/uL (1.2-3.4) Monocytes # (Auto) 0.71 K/uL (0.11-0.59) Eosinophils # (Auto) 0.24 K/uL (0-0.5) Basophils # (Auto) 0.02 K/uL (0-0.2) RDW Standard Deviation 45.6 fL (36.4-46.3) RDW Coefficient of Variation 13.1 % (11.5-14.5) Immature Granulocyte % (Auto) 0.2 % Immature Granulocyte # (Auto) 0.01 K/uL (0.00-0.02) Prothrombin Time 10.6 SECONDS (9.0-12.0) Prothromb Time International Ratio 1.0 (0.9-1.1) Activated Partial Thromboplast Time 26.1 SECONDS (21.0-31.0) Partial Thromboplastin Ratio 1.0 D-Dimer 6070 ug/L FEU (0-500) Anion Gap 8.0 mmol/L (3-11) Est Creatinine Clear Calc Drug Dose 71.5 ml/min Estimated GFR () 71.0 Estimated GFR (Non- 61.3 BUN/Creatinine Ratio 26.5 (10-20) Calcium Level 9.3 mg/dl (8.5-10.1) Total Bilirubin 0.6 mg/dl (0.2-1) Direct Bilirubin 0.2 mg/dl (0-0.2) Aspartate Amino Transf (AST/SGOT) 24 U/L (15-37) Alanine Aminotransferase (ALT/SGPT) 29 U/L (12-78) Alkaline Phosphatase 71 U/L (45-117) Total Creatine Kinase 194 U/L (26-192) Creatine Kinase MB 4.1 ng/ml (0.5-3.6) Creatine Kinase MB Ratio 2.1 (0-3.0) Troponin I < 0.015 ng/ml (0-0.045) Total Protein 7.3 gm/dl (6.4-8.2) Albumin 3.6 gm/dl (3.4-5.0) Lipase 230 U/L (73-393) Laboratory results per my review. Medications Administered Medications (Trade) Dose Ordered Sig/Kee Route Start Time Stop Time Status Last Admin Dose Admin Sodium Chloride (Nss 1000ml) 1,000 ml @ 999 mls/hr Q1H1M STAT IV 07/26/16 09:41 07/26/16 10:41 DC 07/26/16 10:28 999 MLS/HR Ondansetron HCl (Zofran Inj) 4 mg NOW STAT IV 07/26/16 09:41 07/26/16 09:42 DC 07/26/16 10:28 4 MG Aspirin (Aspirin Chew) 324 mg NOW STAT PO 07/26/16 10:47 07/26/16 10:49 DC 07/26/16 10:54 324 MG ECG Indication: chest pain Rate (beats per minute): 63 Rhythm: sinus rhythm Findings: PAC, PVC, other (normal axis) Comparison ECG Date: 04/27/16 Change: PVCs and PACs are new. ED Course ED COURSE: Vital signs were reviewed and showed hypertensive. The patients medical record was reviewed The above diagnostic studies were performed and reviewed. ED treatments and interventions as stated above. 0932: The patient was evaluated in room B5. A complete history and physical examination was performed. 0941: Zofran 4 mg IV, NSS 1000 ml @ 999 mls/hr IV 1047: Aspirin 324 mg PO 1051: I updated the patient on her results. 1151: Upon reevaluation, the patient is resting comfortably and is currently pain-free. I discussed my findings with the patient and she understands and agrees with the treatment plan. Based on the patients age, coexisting illnesses, exam and lab findings the decision to treat as an inpatient was made. The patient remained stable while under my care. The patient will be evaluated for further management. 1208: I spoke with Dr. English. We discussed the patients results and treatment plan. The patient will be evaluated by the [facility] for further management. Medical Decision Differential diagnoses includes but is not limited to acute coronary syndrome, myocardial infarction, pericarditis, pulmonary embolus, aortic dissection, pneumonia, pneumothorax, musculoskeletal, shingles, esophageal. Patient is a 76-year-old female who presents the ER for chest pain associated with shortness of breath and arm pain. Currently she has no pain. She is given aspirin. EKG was unremarkable. CBC along with BMP, LFTs, troponin and lipase were unremarkable. CK-MB was elevated at 4.1. D-dimer was elevated and consequently CT PE was performed which was negative. Patient remained pain- free while in the ER. Based on her symptoms she was admitted to internal medicine for chest pain rule out/observation. Consults Time Called: 1201 Consulting Physician: Dr. English Returned Call: [address] English. We discussed the patients results and treatment plan. The patient will be evaluated by the [facility] for further management. Impression Primary Impression: Precordial chest pain Scribe Attestation The scribe's documentation has been prepared under my direction and personally reviewed by me in its entirety. I confirm that the note above accurately reflects all work, treatment, procedures, and medical decision making performed by me. Departure Information Dispostion Being Evaluated By Hospitalist Aisha Collier DO (PCP) Patient Instructions My [facility]
[2016-07-26 15:48] VITALS: BP 125/76; PULSE 54; TEMP 36.6; O2SAT 96
[2016-07-26] MEDS ORDERED: ENOXAPARIN 30 MG/0.3 ML SYR SC SCH (16:00)
[2016-07-26] MEDS: LISINOPRIL 5 MG TAB PO SCH (17:39)
[2016-07-26] MEDS: MULTIVITAMIN TAB PO SCH (17:40)
[2016-07-26] MEDS: ASPIRIN 81 MG ECTAB PO SCH (17:40)
[2016-07-26 19:42] VITALS: BP 133/84; PULSE 58; TEMP 36.6; O2SAT 96
[2016-07-26] MEDS ORDERED: SIMVASTATIN 5 MG TAB PO SCH (21:00)
[2016-07-26 23:23] VITALS: BP 111/48; PULSE 38; TEMP 36.5; O2SAT 96
[2016-07-26 23:31] VITALS: BP_SYST 126; BP_SYST 97; BP_DIAS 59; BP_DIAS 76; PULSE 55; PULSE 65
[2016-07-27 04:58] VITALS: BP 122/77; PULSE 57; TEMP 36.6; O2SAT 96
[2016-07-27] MEDS ORDERED: LEVOTHYROXINE 75 MCG TAB PO SCH (06:30)
[2016-07-27 07:17] VITALS: BP 121/67; PULSE 52; TEMP 36.4; O2SAT 93
[2016-07-27] MEDS: MULTIVITAMIN TAB PO SCH (08:03)
[2016-07-27] MEDS: LISINOPRIL 5 MG TAB PO SCH (08:03)
[2016-07-27] MEDS: ASPIRIN 81 MG ECTAB PO SCH (08:03)
[2016-07-27 08:50] LABS: CHOLESTEROL/HDL RATIO 2.4
[2016-07-27 09:27] LABS: ESTIMATED AVERAGE GLUCOSE 114 mg/dl; HA1C FLAG Normal (Normal)
[2016-07-27] MEDS ORDERED: DOBUTamine HCL 12.5 MG/ML 20 ML VIAL ONE (09:35)
[2016-07-27] MEDS ORDERED: ATROPINE SULFATE 0.1 MG/ML 5ML SYR ONE (09:35)
[2016-07-27] MEDS ORDERED: METOPROLOL TARTRATE 1 MG/ML VIAL ONE (09:35)
[2016-07-27 11:13] VITALS: BP 107/72; PULSE 73; TEMP 36.4; O2SAT 95
[2016-07-27] MEDS ORDERED: SYN88 PO (14:08)
--- NOTE | 2016-07-27 14:16 | Discharge Instructions ---
Discharge Instructions Date of Service July 27, 2016. Admission Reason for Admission: Chest Pain Discharge Discharge Diagnosis / Problem: Chest Pain Discharge Goals Goal(s): Decrease discomfort, Improve function, Increase independence Activity Recommendations Activity Limitations: as noted below Lifting Limitations: gradually increase as tolerated Exercise/Sports Limitations: gradually increase as tolerated . Instructions / Follow-Up Instructions / Follow-Up Chest Pain: - During admission you had multiple tests including cardiac enzymes that are negative for heart damage and a stress test that was normal. - You also had imaging performed that did not show blood clots in the lungs - Given the reproducible nature of this chest pain this is likely musculoskeletal. -- Would keep an eye on the skin for any rashes that develop however suspicion is low for shingles - Rhythm monitoring does show that you have frequent extra beats which are not an uncommon finding but may be worth tracking as an outpatient. -- Would discuss with family doctor about possibly getting a holter monitor which will monitor your heart rhythm to keep an eye on these extra beats Hypothyroidism: - Your Synthroid was recently adjusted by your family doctor due to concern that your medication was too strong for you, however your TSH level now suggests that the dose is not adequate enough. - Would recommend alternating between 75 mcg and 88 mcg. We gave you 75 mcg today 07/27 and would recommend taking 88 mcg tomorrow 07/28 and so forth - Would recommend discussing this with your family doctor and would suggest repeat labs in 6 weeks for monitoring Left Shoulder Pain: - Would avoid lifting heavy objects and avoid movements that worsen the shoulder pain but light movement is recommended to prevent stiffness - When you follow-up with your family doctor you can be referred for imaging if necessary. Chest Xray performed here does not show obvious abnormality but has limited views of the shoulder Follow-Up: - Recommend follow-up with family doctor in 7-10 days Current Hospital Diet Patient's current hospital diet: AHA Diet (Heart Healthy) Discharge Diet Recommended Diet: AHA Diet (Heart Healthy) Pending Studies Studies pending at discharge: no Laboratory Results Hemoglobin A1c Test 07/27/16 07:58 Range/Units Estimated Average Glucose 114 mg/dl Hemoglobin A1c 5.6 4.5-5.6 % Lipid Panel Test 07/27/16 07:58 Range/Units Triglycerides Level 58 0-150 mg/dl Cholesterol Level 173 0-200 mg/dl HDL Cholesterol 73 mg/dl Cholesterol/HDL Ratio 2.4 LDL Cholesterol, Calculated 88 mg/dl Medical Emergencies . Who to Call and When: Medical Emergencies: If at any time you feel your situation is an emergency, please call 911 immediately. . Non-Emergent Contact Non-Emergency issues call your: Primary Care Provider Call Non-Emergent contact if: you have a fever, your pain is concerning you, you have any medication questions . . "Provider Documentation" section prepared by Shanna Billy. . VTE Core Measure Inpt VTE Proph given/why not?: Enoxaparin (Lovenox)MAR, T.E.Liza. Pravin, SCD's
[2016-07-27] MEDS ORDERED: LEVO75TA PO (14:38)
[2016-07-27 15:24] VITALS: BP 107/72; PULSE 73; TEMP 36.4; O2SAT 95
--- NOTE | 2016-07-27 17:37 | Discharge Summary ---
Discharge Summary Date of Service July 27, 2016. (Shanna Billy PA-C) Discharge Summary Admission Date: July 26, 2016 at 12:48 Discharge Date: July 27, 2016 Discharge Disposition: Home Principal Diagnosis: Chest Pain Problems/Secondary Diagnoses: 1. HTN 2. HLD 3. Hypothyroidism 4. DVT/PE 5. GERD 6. Hiatal Hernia 7. Anxiety Immunizations: Have You Had Influenza Vaccine: Yes Influenza Vaccine Date: Nov 13, 2014 History of Tetanus Vaccine?: Unknown Tetanus Immunization Date: Jun 29, 2009 History of Pneumococcal: Yes Pneumococcal Date: Aug 26, 2014 History of Hepatitis B Vaccine: Unknown Procedures: 1. CT ANGIOGRAM OF THE CHEST FINDINGS: Thyroid: Markedly atrophic. Thoracic aorta: There is mild atherosclerotic calcification of the thoracic aorta, which is normal in caliber and demonstrates standard 3-vessel arch anatomy. The thoracic aorta is not well opacified.. Pulmonary vasculature: The main pulmonary arteries are dilated suggesting pulmonary artery hypertension. There are no filling defects identified in main, lobar, or segmental pulmonary branches to suggest pulmonary embolus. Heart: The heart is enlarged and without pericardial effusion. There are coronary artery calcifications. Lungs and pleural spaces: Evaluation of the lung parenchyma is modestly degraded by respiratory motion artifact. No airspace consolidation or pleural effusion is seen. Dependent atelectasis is noted. The trachea and central airways are clear. Mediastinum: There is no mediastinal lymphadenopathy. Melania: There are calcified left hilar lymph nodes. No hilar adenopathy is seen. Axillae: There is no axillary lymphadenopathy. Upper abdomen: There is a small hiatal hernia with evidence of previous surgery at the gastroesophageal junction. Calcified splenic granulomas are noted. Skeletal structures: The skeletal structures are osteopenic. Mild degenerative change is noted throughout the thoracic spine. No lytic or blastic bony lesions are seen. IMPRESSION: 1. There is no evidence of pulmonary embolus in the main, lobar, or segmental pulmonary arteries. 2. Cardiomegaly. 3. There is no airspace consolidation or pleural effusion. (Shanna Billy PA-C) Problems/Secondary Diagnoses: Frequent PVCs/Trigeminy/Bigeminy Obesity (Bree Perez MD) Medication Reconciliation New Medications: Levothyroxine Sodium (Synthroid) 88 Mcg Tab 88 MCG PO Q2D, #14 TAB Changed Medications: Levothyroxine Sodium (Synthroid) 75 Mcg Tab 75 MCG PO Q2D for 30 Days, TAB (Changed from: DAILY) alternating with th 88 mcg dose on the other days Continued Medications: Acetaminophen (Tylenol) 500 Mg Tab 500 MG PO UD PRN for Pain Aspirin (Aspirin 81) 81 Mg Tab 81 MG PO DAILY Cholecalciferol (Vitamin D 1000 Unit) 1,000 Unit Cap 1000 INTER.UNIT PO BID, CAP Fish Oil ([place]-3) 1 Ea Cap 1200 MG PO QAM, 0 Refills Flaxseed (Linseed) (Flax Oil) 1 Oil Oil 1200 MG PO HS Ibuprofen (Advil) 200 Mg Tab 200 MG PO DIRECTED PRN for Pain, TAB Lisinopril (Prinivil) 5 Mg Tab 5 MG PO QAM, TAB Multivitamins (Daily Darnell) 1 Tab Tab 2 TAB PO DAILY Simvastatin (Zocor) 5 Mg Tab 5 MG PO HS, TAB [Iron] () 65 MG PO DAILY Discharge Exam Review of Systems: Constitutional: No fever, No chills Eyes: No worsening of vision ENT: + trouble swallowing, No nasal symptoms, No sore throat Respiratory: No shortness of breath Cardiovascular: + chest pain (L chest), No palpitations Abdomen: No pain, No nausea, No vomiting, No diarrhea, No constipation, No GI bleeding Musculoskeletal: + joint pain (L shoulder), No calf pain Genitourinary - Female: No dysuria Psychiatric: + anxiety Hematologic / Lymphatic: No abnormal bleeding/bruising Integumentary: No rash Physical Exam: General Appearance: WD/WN, no apparent distress, + obese Eyes: sclerae normal ENT: hearing grossly normal Neck: supple, no JVD, trachea midline Respiratory/Chest: lungs clear, normal breath sounds, no respiratory distress, no accessory muscle use Cardiovascular: regular rate, rhythm, no gallop, no murmur Abdomen / GI: normal bowel sounds, non tender, soft Extremities: no calf tenderness Neurologic/Psychiatric: alert, oriented x 3 Skin: normal color, warm/dry (Shanna Billy, PARoberto CarlosC) Hospital Course ADMISSION: This is a 76-year-old female with a past medical history of hypertension, hyperlipidemia, hypothyroidism, history of DVT and PE not on anticoagulation any longer, GERD, hiatal hernia and anxiety. Patient presents after 24 hours of worsening left-sided chest pain. She reports this started initially around noon yesterday while she was cleaning. The patient took one 500 mg Tylenol tablets but pain was not relieved. She continued to clean her house. Patient is expecting a house full of people this weekend and was prepping for their arrival. She reports that last evening the pain continued to worsen while she was lying down in bed, and began to radiate to her back and down into her left arm and rest. It did not radiate to the jaw. She denies taking any medication for this pain. Overnight she got minimal sleep. Patient presented to the ER today after she was unable to get an appointment with her PCP until later this afternoon. Patient does report that she was slightly nauseous this morning but did not vomit. She denies any headache, lightheadedness, dizziness, palpitation, flutter. He did not take any of her normal medications today, and has not eaten anything. The patient has felt increasingly anxious over the last month but reports there is no trigger factor. She also occasionally notes shortness of breath when climbing one flight of stairs, approximately 13 steps. The patient lives at home with her son, is not using anything for ambulation assistance and does not wear chronic supplemental oxygen. Here in the ER the patient's workup thus far has been essentially negative, despite a mildly elevated blood pressure with systolics in the 150s to 160s. Initial cardiac biomarkers are negative. Chest x-ray was completed and negative , CTPE was completed due to an elevated d-dimer but is also negative. EKG appears to be in normal sinus rhythm without any ST wave inversions or signs of ischemia. HOSPITAL COURSE: Ms. Velazquez was admitted for chest pain under observation status. Cardiac enzymes obtained and were negative. Dobutamine stress test performed and reviewed by cardiology. No abnormal findings appreciated with official report pending. Chest pain was noted to be largely reproducible to palpation and active/passive ROM of L upper extremity. She denies trauma to LUE but states she has diffuse OA. No abnormality appreciated on CXR or CT in regards to the shoulder, however these views are limited. Patient preferred outpatient follow-up in regards to her shoulder. She had full ROM of L shoulder but pain associated mostly with arm raises. Given her PE history and elevated D- dimer a CTA was performed and unremarkable. Please see procedures for official report. Overlying skin was unremarkable but patient reports history of shingles x 20 years ago following the dermatome under the breast but cannot remember which side. Incidentally, the TSH was obtained that reveals 6.28. Patient reports in June her Synthroid was decreased from 88 mcg to 75 mcg and was instructed to follow-up in August. Did recommend alternating Synthroid 88 mcg and 75 mcg every other day and have repeat TSH drawn in 6 weeks. On telemetry monitoring she was noted to have frequent extra beats to include bigeminy and trigeminy and may benefit from Holter monitoring. Total Time Spent: Greater than 30 minutes This includes examination of the patient, discharge planning, medication reconciliation, and communication with other providers. (Shanna Billy, RHIANNON) Discharge Instructions Please refer to the electronic Patient Visit Report (Discharge Instructions) for additional information. (Shanna Billy PA-C) Additional Copies To Pepito Bradley III, CRNP; Aisha Matthew, Reviewed: Pt Seen/Exam by Me (Bere Perez MD) History Physician Group Practice Pediatrician Supervision Note: I interviewed and examined the patient. Discussed with YAMIL Billy and agree with findings and plan as documented in the note. Any exceptions or clarifications are listed here: Pt doing well after admission. Left sided chest pain easily reproducible with movement of left arm and palpation. Tele with bigem and trigem, frequent PVCs Vitals reviewed Obese, NAD RRR no mgr CTAB, breathin gunlabored Abd soft NT ND +BS Ext no edema, +TTP over left pectoralis and worse with left arm abduction 76 yo female with atypical CP, normal dobutamine stress. Does have grade II diastolic dysfunction and should have continued improvement of control of BP. Recommended weight loss, diet and exercise for weight loss. Adjusted Synthroid dose and repeat labs for TFTs in 6 weeks. Recommend Holter monitor to evaluate total daily beats that are PVCs and can start beta luis alfredo if > 10% of total daily beats. STable for dc to home. See PT or Ortho if left sided CP not resolving Documented By: Bere Perez (Bere Perez MD)
--- NOTE | 2016-07-27 18:20 | DOBUTAMINE ECHO ---
*NOTICE TO RECEIVING [employer] This information is strictly Confidential and protected under [place] law. [place] law prohibits you from making any further disclosure of this information unless further disclosure is expressly permitted by the written consent of the person to whom it pertains or is authorized by law. A general authorization for the release of medical or other information is not sufficient for this purpose. Hospital accepts no responsibility if the information is made available to any other person, INCLUDING THE PATIENT. Interpretation Summary * Name: BARB MILLS Study Date: 07/27/2016 08:24 AM BP: 121/67 mmHg * Patient Location: .[facility]\S\N277\S\2 HR: 52 * : 1940 (M/d/yyyy) Gender: Female Height: 70 in * Age: 76 yrs Ethnicity: [place] Weight: 248 lb * Ordering Physician: Mireya English * Performed By: Wilma Momin * * Reason For Study: CHEST PAIN * BSA: 2.3 m2 * -- Conclusions -- * Stress Echo: * 1. Negative dobutamine stress echo for ischemia at 89% MPHR. * 2. Negative dobutamine ECG for ischemia at 89% MPHR. * 3. Reproducible chest pain from the echo probe application was reported. * 4. No arrhythmia. PACs and PVCs noted. * 5. Technically difficult study, enhanced with IV Definity. * Echo: * 1. Normal left ventricular size and systolic function. EF 60-65%. No regional wall motion abnormalities. Mild concentric left ventricular hypertrophy. Type 2 diastolic dysfunction. * 2. Mild mitral regurgitation. * 3. Normal estimated right ventricular systolic pressure; RVSP 25 mmHg. * 4. No prior study available for comparison. Procedure Details * DOBUTAMINE ECHO, CPT#[id number] * ECHO DOPPLER, CPT #[id number] * ECHO COLOR FLOW, CPT #[id number] * The study was technically difficult with many images being suboptimal in quality. * A contrast injection of Definity was performed to improve assessment of LV function. * Contrast was injected into an intravenous site in the left arm. * One vial of Definity ultrasound contrast was diluted in normal saline to a total volume of 10 ml. A total of '7' ml of solution was administered during imaging. * Lot # [id number] of Definity utilized for procedure. * Expiration date 08/19. * The attending nurse who injected the contrast agent was TUTU YOUNG RN. Left Ventricle * The left ventricle is normal in size. * There is mild concentric left ventricular hypertrophy. * Resting wall motion: Normal. Stress wall motion: Appropriate increase in Left ventricular systolic function and decrease in cavity size. No stress induced segmental wall motion abnormalities. * No regional wall motion abnormalities noted. Right Ventricle * The right ventricle is normal in size and function. * The right ventricular systolic function is normal as assessed by tricuspid annular plane systolic excursion (TAPSE) (normal >1.5 cm). Atria * The left atrial size is normal. * Right atrial size is normal. * There is no evidence of atrial septal defect, but resolution does not allow assessment for a patent foramen ovale. Mitral Valve * There is mild mitral annular calcification. * There is no mitral valve stenosis. * There is mild mitral regurgitation. Tricuspid Valve * The tricuspid valve is not well visualized, but is grossly normal. * There is no tricuspid stenosis. * There is mild tricuspid regurgitation. Aortic Valve * The aortic valve is trileaflet. * No hemodynamically significant valvular aortic stenosis. * No aortic regurgitation is present. Pulmonic Valve * The pulmonary valve is inadequately visualized, but the Doppler data is adequate for interpretation. * Mild pulmonic valvular regurgitation. Great Vessels * The aortic root is normal size. * Ascending aorta of normal dimension * IVC normal in size and inspiratory collapse. Pericardium * There is no pericardial effusion. Stress Parameters * NSR at 68 bpm. PVCs. * Stress ECG: No ST changes. No arrhythmias. * PACs and PVCs noted. * No arrhythmia were noted with stress. * Rest heart rate was '57' BPM. * Rest blood pressure was '141/70' * Maximum heart rate achieved was 129 bpm. * Maximum heart rate was 89 % of maximum age-predicted heart rate. * Maximum blood pressure was '168/43' * Total exercise time was '12:00' * Maximum Dobutamine infusion rate was '50' mcg/kg/min. * A total of 5 mg of IV Metoprolol was administered to reverse Dobutamine-induced tachycardia. * The patient exhibited chest pain during exercise. * Exercise was terminated due to 'target heart rate achieved.' * Normal blood pressure response to exercise. MMode 2D Measurements and Calculations IVSd 1.2 cm IVSs 1.8 cm LVIDd 4.9 cm LVIDs 3.2 cm LVPWd 1.2 cm LVPWs 1.4 cm IVS/LVPW 1.0 FS 33.5 % EDV(Teich) 111.3 ml ESV(Teich) 42.2 ml EF(Teich) 62.1 % EDV(cubed) 115.6 ml ESV(cubed) 34.0 ml EF(cubed) 70.6 % % IVS thick 49.7 % % LVPW thick 20.6 % LV mass(C)d 226.5 grams LV mass(C)dI 99.0 grams/m\S\2 LV mass(C)s 201.7 grams LV mass(C)sI 88.2 grams/m\S\2 CO(Teich) 5.0 l/min CI(Teich) 2.2 l/min/m\S\2 SV(Teich) 69.1 ml SI(Teich) 30.2 ml/m\S\2 CO(cubed) 6.0 l/min CI(cubed) 2.6 l/min/m\S\2 SV(cubed) 81.7 ml SI(cubed) 35.7 ml/m\S\2 Ao root diam 3.7 cm Ao root area 10.5 cm\S\2 ACS 1.8 cm asc Aorta Diam 3.3 cm LVOT diam 2.0 cm LVOT area 3.1 cm\S\2 LVAd ap4 34.6 cm\S\2 LVLd ap4 8.9 cm LVAs ap4 20.4 cm\S\2 LVLs ap4 7.2 cm ESV(MOD-sp4) 47.0 ml LVAd ap2 34.6 cm\S\2 LVLd ap2 8.8 cm EDV(MOD-sp2) 114.0 ml LVAs ap2 20.4 cm\S\2 LVLs ap2 6.9 cm Doppler Measurements and Calculations MV E max acosta 105.1 cm/sec MV A max acosta 105.1 cm/sec MV E/A 1.0 MV dec time 0.19 sec Ao V2 max 118.1 cm/sec Ao max PG 5.6 mmHg Ao max PG (full) 1.5 mmHg CJ(V,A) 2.7 cm\S\2 CJ(V,D) 2.7 cm\S\2 LV V1 max PG 4.1 mmHg LV V1 max 101.2 cm/sec TV E max acosta 52.1 cm/sec PA V2 max 65.2 cm/sec PA max PG 1.7 mmHg PI max acosta 136.5 cm/sec PI max PG 7.5 mmHg PI dec slope 42.1 cm/sec\S\2 PI P1/2t 950.2 msec TR max acosta 236.4 cm/sec RVSP(TR) 25.4 mmHg RAP systole 3.0 mmHg
[2016-07-28] MEDS ORDERED: LEVOTHYROXINE 88 MCG TAB PO SCH (06:30)
[2016-08-13] MEDS ORDERED: CRD200 PO ×2 (11:31→15:17)
[2016-08-22] MEDS ORDERED: ASPI-435 PO (00:54)
[2016-08-22] MEDS ORDERED: MULT-589 PO (00:55)
[2016-08-22] MEDS ORDERED: IRON PO (05:34)
[2016-08-22] MEDS ORDERED: FLAXOIL2 PO (09:51)
[2016-08-22] MEDS ORDERED: SIMV5TAB2 PO (09:51)
[2016-08-22] MEDS ORDERED: OMEG10007 PO (14:56)
== END 2016-07-27 15:50 | disposition home or self-care (01) ==
LOC: ENRESERVTM → ENRESERVDT → C.EDB 08:57 → C.MED 12:48
PROVIDERS: ADMIT Family Medicine; ATTEND Family Medicine
DX: R07.9 Chest pain, unspecified (principal); I10 Essential (primary) hypertension; K21.9 Gastro-esophageal reflux disease without esophagitis; M16.11 Unilateral primary osteoarthritis, right hip; E78.00 Pure hypercholesterolemia, unspecified; E03.9 Hypothyroidism, unspecified; K44.9 Diaphragmatic hernia without obstruction or gangrene; F41.9 Anxiety disorder, unspecified; E78.5 Hyperlipidemia, unspecified; Z96.652 Presence of left artificial knee joint; Z79.899 Other long term (current) drug therapy; Z79.82 Long term (current) use of aspirin; Z86.718 Personal history of other venous thrombosis and embolism; Z82.49 Family history of ischemic heart disease and other diseases of the circulatory system; Z92.3 Personal history of irradiation; Z80.1 Family history of malignant neoplasm of trachea, bronchus and lung

== ENCOUNTER 2016-08-07 16:21 | Inpatient (IN) | payer OTHER, MEDICARE ==
[~2016-08-07] VITALS: Ht 177.8 cm; Wt 117.4 kg
[~2016-08-07 16:21] MED LIST changes: -CYAN100020 PO; -DOCU100C31 PO; -FERR1TAB24 PO; +IBUP-1277 PO; +LEVO75TA PO; -LEVO88TA PO; -NF406 PO; -PRLSR20 PO; -PRLSRP PO; +SYN88 PO
--- NOTE | 2016-08-07 16:53 | DIAGNOSTIC IMAGING REPORT ---
SINGLE VIEW CHEST CLINICAL HISTORY: Atypical chest pain. FINDINGS: An AP, portable, upright chest radiograph is compared to chest x-ray and chest CT dated 07/26/2016. The examination is degraded by portable technique, large body habitus, and patient rotation. The heart is enlarged. The pulmonary vascular is noncongested. Calcified mediastinal and hilar lymph nodes are again noted. Chronic interstitial thickening is similar to previous. There is no airspace consolidation, pleural effusion, or pneumothorax. The skeletal structures are osteopenic. The bony thorax is grossly intact. IMPRESSION: Cardiomegaly with no acute cardiopulmonary abnormality. There has been no significant change from recent prior studies. Electronically signed by: Salomon Jose M.D. 08/07/2016 4:52 PM Dictated Date/Time: 08/07/2016 4:50 PM
[2016-08-07] MEDS ORDERED: OMEP40CA41 PO (17:06)
[2016-08-07] MEDS ORDERED: GABA1CAP4 PO (17:06)
[2016-08-07 17:11] LABS: HEMATOCRIT 40.3 % (37-47); MEAN CELL VOLUME 96.9 fL (80-100); MEAN CORPUSCULAR HEMOGLOBIN 33.2 pg (25-34); MEAN CORPUSCULAR HGB CONC 34.2 g/dl (32-36); MEAN PLATELET VOLUME 10.9 fL (7.4-10.4); PLATELET COUNT 201 K/uL (130-400); RED BLOOD COUNT 4.16 M/uL (4.2-5.4); WHITE BLOOD COUNT 5.74 K/uL (4.8-10.8)
[2016-08-07 17:26] LABS: PROTHROMBIN TIME (PATIENT) 10.7 SECONDS (9.0-12.0)
[2016-08-07 17:30] LABS: ALT/SGPT 31 U/L (12-78); AST/SGOT 23 U/L (15-37); BLOOD UREA NITROGEN 19 mg/dl (7-18); BUN/CREATININE RATIO 20.5 (10-20); CALCIUM 8.8 mg/dl (8.5-10.1); CARBON DIOXIDE 29 mmol/L (21-32); CHLORIDE 107 mmol/L (98-107); CREATININE 0.94 mg/dl (0.60-1.20); GLUCOSE 103 mg/dl (70-99); MAGNESIUM 2.2 mg/dl (1.8-2.4); POTASSIUM 4.1 mmol/L (3.5-5.1); SODIUM 143 mmol/L (136-145)
--- NOTE | 2016-08-07 17:39 | EMERGENCY ROOM VISIT NOTE ---
History Report prepared by Missy: Felisha Antunez Under the Supervision of: Dr. Salomon Aguero M.D. First contact with patient: 16:30 Chief Complaint: CARDIAC ASSESSMENT Stated Complaint: CHEST PAINS,LIGHT HEADED History of Present Illness The patient is a 76 year old female who presents to the Emergency Room with complaints of intermittent mild left sided chest pain beginning 2 weeks prior to arrival. The patient states that she feels "foggy brained" and short of breath. She notes that she has been experiencing fatigue and shortness of breath with exertion. The patient states that today she was standing in her kitchen when she began to feel lightheaded and went to sit down. She almost blacked out but did not lose consciousness. The patient was hospitalized for similar symptoms 2 weeks ago and kept overnight for cardiac observation. Her thyroid medication was increased at this time. The patient states that these past 2 weeks her "foggy brain" has been worsening and she has noticed her blood pressure and heart rate are very low. The patient did exercise this morning to try and raise her heart rate with no changes occurring. 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 A total of 10 systems reviewed and were otherwise negative. Past Medical & Surgical Medical Problems: (1) Benign hypertension (2) DVT (deep venous thrombosis) (3) Gastroesophageal reflux disease (4) Hiatal hernia (5) Hyperlipidemia (6) Low back pain with sciatica (7) Pulmonary embolism (8) Right Hip DJD Surgical Problems: (1) S/P knee replacement Family History No significant family history Social History Smoking Status: Never Smoker Alcohol Use: occasionally Drug Use: none Marital Status: Housing Status: lives with family Occupation Status: retired Current/Historical Medications Scheduled Aspirin (Aspirin 81), 81 MG PO DAILY Cholecalciferol (Vitamin D 1000 Unit), 1,000 INTER.UNIT PO BID Fish Oil ([place]-3), 1,200 MG PO QAM Flaxseed (Linseed) (Flax Oil), 1,200 MG PO HS Gabapentin (Gabapentin), 300 MG PO TID Levothyroxine Sodium (Synthroid), 88 MCG PO Q2D Levothyroxine Sodium (Synthroid), 75 MCG PO Q2D Lisinopril (Prinivil), 5 MG PO QAM Multivitamins (Daily Darnell), 2 TAB PO DAILY Omeprazole (Prilosec), 40 MG PO DAILY Simvastatin (Zocor), 5 MG PO HS [Iron], 65 MG PO DAILY Scheduled PRN Acetaminophen (Tylenol), 500 MG PO UD PRN for Pain Ibuprofen (Advil), 200 MG PO DIRECTED PRN for Pain Allergies Coded Allergies: Adhesives (Verified Allergy, Unknown, REDNESS FROM EKG PATCHES, 08/07/16) Codeine (Verified Allergy, Unknown, DOPEY, 08/07/16) Lorazepam (Verified Allergy, Unknown, NAUSEA, 08/07/16) Oxycodone (Verified Allergy, Unknown, NAUSEA AND VOMITING, 08/07/16) POLLEN (Verified Allergy, Unknown, EYES AND THROAT ITCHY, 08/07/16) Propoxyphene (Verified Allergy, Unknown, nausea, 08/07/16) N/V--NEARLY COMATOSE? Erythromycin (Verified Adverse Reaction, Unknown, NAUSEA, 08/07/16) Morphine (Verified Adverse Reaction, Unknown, HALLUCINATIONS, 08/07/16) Prednisone (Verified Adverse Reaction, Unknown, "High dose prednisone" -- extreme anxiety, 08/07/16) Tramadol (Verified Adverse Reaction, Unknown, "loopy", 08/07/16) Physical Exam Vital Signs Date Time Temp Pulse Resp B/P (MAP) Pulse Ox O2 Delivery O2 Flow Rate FiO2 08/07/16 17:30 94 Room Air 08/07/16 17:30 94 Room Air 08/07/16 16:39 76 08/07/16 16:24 36.3 60 18 146/86 98 Room Air Physical Exam GENERAL: Patient is in no acute distress. HEENT: No acute trauma, normocephalic atraumatic, mucous membranes moist, no nasal congestion, no scleral icterus. NECK: No stridor, no adenopathy, no meningismus, trachea is midline. LUNGS: Clear to auscultation bilaterally, no wheeze, no rhonchi, breath sounds equal. HEART: 2/6 systolic murmur, bradycardic, regular rhythm. ABDOMEN: Soft, nontender, bowel sounds positive, no hernias, no peritonitis. EXTREMITIES: No cyanosis or edema, full range of motion of all the joints without pain or difficulty, no signs for acute trauma. NEUROLOGIC: Oriented x 3, no acute motor or sensory deficits, no focal weakness. SKIN: No rash, no jaundice, no diaphoresis. Medical Decision & Procedures ER Provider Diagnostic Interpretation: X-ray results as stated below per interpretation by me and the radiologist: SINGLE VIEW CHEST CLINICAL HISTORY: Atypical chest pain. FINDINGS: An AP, portable, upright chest radiograph is compared to chest x-ray and chest CT dated 07/26/2016. The examination is degraded by portable technique, large body habitus, and patient rotation. The heart is enlarged. The pulmonary vascular is noncongested. Calcified mediastinal and hilar lymph nodes are again noted. Chronic interstitial thickening is similar to previous. There is no airspace consolidation, pleural effusion, or pneumothorax. The skeletal structures are osteopenic. The bony thorax is grossly intact. IMPRESSION: Cardiomegaly with no acute cardiopulmonary abnormality. There has been no significant change from recent prior studies. Electronically signed by: Salomon Jose M.D. 08/07/2016 4:52 PM Dictated Date/Time: 08/07/2016 4:50 PM Laboratory Results 08/07/16 16:58 08/07/16 16:58 Test 08/07/16 16:58 Red Blood Count 4.16 M/uL (4.2-5.4) Mean Corpuscular Volume 96.9 fL (80-100) Mean Corpuscular Hemoglobin 33.2 pg (25-34) Mean Corpuscular Hemoglobin Concent 34.2 g/dl (32-36) RDW Standard Deviation 46.6 fL (36.4-46.3) RDW Coefficient of Variation 13.2 % (11.5-14.5) Mean Platelet Volume 10.9 fL (7.4-10.4) Prothrombin Time 10.7 SECONDS (9.0-12.0) Prothromb Time International Ratio 1.0 (0.9-1.1) Activated Partial Thromboplast Time 24.8 SECONDS (21.0-31.0) Partial Thromboplastin Ratio 1.0 Anion Gap 7.0 mmol/L (3-11) Est Creatinine Clear Calc Drug Dose 69.0 ml/min Estimated GFR () 68.3 Estimated GFR (Non- 58.9 BUN/Creatinine Ratio 20.5 (10-20) Calcium Level 8.8 mg/dl (8.5-10.1) Magnesium Level 2.2 mg/dl (1.8-2.4) Total Bilirubin 0.4 mg/dl (0.2-1) Aspartate Amino Transf (AST/SGOT) 23 U/L (15-37) Alanine Aminotransferase (ALT/SGPT) 31 U/L (12-78) Alkaline Phosphatase 68 U/L (45-117) Troponin I < 0.015 ng/ml (0-0.045) Total Protein 6.8 gm/dl (6.4-8.2) Albumin 3.5 gm/dl (3.4-5.0) Globulin 3.3 gm/dl (2.5-4.0) Albumin/Globulin Ratio 1.1 (0.9-2) Thyroid Stimulating Hormone (TSH) 2.810 uIu/ml (0.300-4.500) Free Thyroxine 1.18 ng/dl (0.80-1.60) Laboratory results reviewed by me. ECG Indication: chest pain Rate (beats per minute): 69 Rhythm: sinus rhythm Findings: PVC (frequent), no acute ischemic change ED Course 1655: The patient was evaluated in room A12. A complete history and physical exam was performed. 1720: Discussed the patient's case with Dr. Darwin MAURER. The patient will be evaluated for further management. 1730: I discussed results and treatment plan with the patient. She verbalizes agreement and understanding. The patient will be evaluated for further management. Medical Decision The patient is a 76 year old female who presents to the ED with complaints of left sided chest pain. Differential diagnoses considered include dysrhythmia, [place], anemia, electrolyte imbalance, thyroid disorder. There is no leukocytosis or concerning anemia. No significant electrolyte abnormality, kidney failure or hepatitis. The patient appears to be in a euthyroid state. EKG shows a sinus rhythm with very frequent PVCs, no acute ischemia. Cardiac enzyme testing times one is not consistent with acute cardiac injury. Chest film shows no CHF or pneumonia. The patient presents with near-syncope, a low blood pressure and low pulse based on her monitor values from home. On exam, she is bradycardic. The monitor shows a heart rate in the 70s but this is only because of her very frequent PVCs. I do think admission/observation is warranted. The bradycardia is causing her symptoms, I did speak with the patient and to case management. The on-call hospitalist was consulted. Medication Reconciliation: I attest that I have personally reviewed the patient' s current medication list. Blood Pressure Screening: Patient was found to have an elevated blood pressure and was referred to their primary doctor for recheck and further treatment. Consults Time Called: 1718 Consulting Physician: Dr. Darwin Azevedo [facility] [place] Returned Call: 1720 Discussed the patient's case. The patient will be evaluated for further management. Impression Primary Impression: Near syncope Additional Impression: Bradycardia Scribe Attestation The scribe's documentation has been prepared under my direction and personally reviewed by me in its entirety. I confirm that the note above accurately reflects all work, treatment, procedures, and medical decision making performed by me. Departure Information Dispostion Being Evaluated By Hospitalist Referrals Aisha Matthew DO (PCP) Problem Qualifiers
[2016-08-07] MEDS ORDERED: ACETAMINOPHEN 325 MG TAB PO PRN (17:45)
[2016-08-07 17:54] LABS: ALB/GLOB RATIO 1.1 (0.9-2); ALKALINE PHOSPHATASE 68 U/L (45-117)
[2016-08-07] MEDS ORDERED: ONDANSETRON INJ 2 MG/ML 2 ML VIAL IV PRN (18:00)
[2016-08-07 20:00] VITALS: BP 174/94; PULSE 64; TEMP 36.5; O2SAT 98; Ht 177.8 cm; Wt 117.4 kg
--- NOTE | 2016-08-07 20:21 | History and Physical ---
History & Physical Date & Time of Service: Aug 07, 2016 at 20:07 Chief Complaint: Bradycardia, Near Syncope Primary Care Physician: Aisha Matthew DO History of Present Illness Source: patient The patient is a 76-year-old female who reports intermittent symptoms of fogginess of thinking over the past 4 weeks along with shortness of breath and left-sided chest discomfort. She'll be admitted to the hospital from July 26 to July 27, and had a negative cardiac workup including a dobutamine stress echocardiogram. Today the patient became very lightheaded while standing in her kitchen, but did not pass out completely, and was able to sit down and gather herself. She also reports that over the past 2 weeks that her brain fog has been worsening, she is also noted her blood pressure and heart rate had gone down very low. 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 (7) Pulmonary embolism Status: Resolved Surgical Problems: (1) S/P knee replacement Status: Resolved Family History No significant family history Social History Smoking Status: Never Smoker Smokeless Tobacco Use: No Alcohol Use: none Drug Use: none Marital Status: Housing status: lives with family Occupational Status: retired Immunizations History of Influenza Vaccine: Yes Influenza Vaccine Date: Nov 13, 2014 History of Tetanus Vaccine?: Unknown Tetanus Immunization Date: Jun 29, 2009 History of Pneumococcal: Yes Pneumococcal Date: Aug 26, 2014 History of Hepatitis B Vaccine: Unknown Multi-Drug Resistant Organisms History of MDRO: No Allergies Coded Allergies: Adhesives (Verified Allergy, Unknown, REDNESS FROM EKG PATCHES, 08/07/16) Codeine (Verified Allergy, Unknown, DOPEY, 08/07/16) Lorazepam (Verified Allergy, Unknown, NAUSEA, 08/07/16) Oxycodone (Verified Allergy, Unknown, NAUSEA AND VOMITING, 08/07/16) POLLEN (Verified Allergy, Unknown, EYES AND THROAT ITCHY, 08/07/16) Propoxyphene (Verified Allergy, Unknown, nausea, 08/07/16) N/V--NEARLY COMATOSE? Erythromycin (Verified Adverse Reaction, Unknown, NAUSEA, 08/07/16) Morphine (Verified Adverse Reaction, Unknown, HALLUCINATIONS, 08/07/16) Prednisone (Verified Adverse Reaction, Unknown, "High dose prednisone" -- extreme anxiety, 08/07/16) Tramadol (Verified Adverse Reaction, Unknown, "loopy", 08/07/16) Home Medications Scheduled Aspirin (Aspirin 81), 81 MG PO DAILY Cholecalciferol (Vitamin D 1000 Unit), 1,000 INTER.UNIT PO BID Fish Oil ([place]-3), 1,200 MG PO QAM Flaxseed (Linseed) (Flax Oil), 1,200 MG PO HS Gabapentin (Gabapentin), 300 MG PO TID Levothyroxine Sodium (Synthroid), 88 MCG PO Q2D Levothyroxine Sodium (Synthroid), 75 MCG PO Q2D Lisinopril (Prinivil), 5 MG PO QAM Multivitamins (Daily Darnell), 2 TAB PO DAILY Omeprazole (Prilosec), 40 MG PO DAILY Simvastatin (Zocor), 5 MG PO HS [Iron], 65 MG PO DAILY Scheduled PRN Acetaminophen (Tylenol), 500 MG PO UD PRN for Pain Ibuprofen (Advil), 200 MG PO DIRECTED PRN for Pain Review of Systems The patient denies cough, lower extremity swelling, vision change, hearing change, sore throat, fevers, chills, sweats, weight change, fatigue, nausea, vomiting, abdominal pain, pelvic pain, blood in urine or stool, dysuria, urinary frequency or urgency, memory loss, rash, abnormal bruising or bleeding, focal weakness, numbness or tingling in arms or legs, arthralgias or myalgias , back or neck pain, night sweats, or allergy symptoms. The review of systems is otherwise negative other than for that already noted above, and at least 10 systems have been reviewed. Physical Exam Vital Signs Date Time Temp Pulse Resp B/P (MAP) Pulse Ox O2 Delivery O2 Flow Rate FiO2 08/07/16 19:25 67 18 156/85 95 08/07/16 19:17 67 18 156/85 95 Room Air 08/07/16 18:17 64 18 146/91 97 Room Air 08/07/16 17:30 94 Room Air 08/07/16 17:30 94 Room Air 08/07/16 16:39 76 08/07/16 16:24 36.3 60 18 146/86 98 Room Air The patient is awake, well-developed and adequately nourished, alert and oriented 3, normocephalic and atraumatic, lying in bed and in no acute distress. HEENT--PERRL, EOMI, mucous membranes and oropharynx dry. Neck--supple, no JVD or bruits, thyroid normal, trachea midline, no adenopathy. Heart--bradycardic, frequent ectopic beats, no murmurs, rubs or gallops. Lungs--clear bilaterally with good air movement, no respiratory distress, no accessory muscle use. Abdomen--normal bowel sounds and soft, nontender and nondistended, no hernias or masses, no organomegaly. Extremities--no cyanosis, clubbing or edema. There are good distal pulses b/l. Dermatologic--normal skin turgor, normal color, warm and dry, no abnormal lymph nodes, no rash. Neurologic--cranial nerves II through XII grossly intact, motor and sensory examination normal. Rheumatologic--normal range of motion, nontender, muscles and joints. Psychiatric--normal affect. Diagnostics Laboratory Results Results Past 24 Hours Test 08/07/16 16:58 Range/Units White Blood Count 5.74 4.8-10.8 K/uL Red Blood Count 4.16 4.2-5.4 M/uL Hemoglobin 13.8 12.0-16.0 g/dL Hematocrit 40.3 37-47 % Mean Corpuscular Volume 96.9 80-100 fL Mean Corpuscular Hemoglobin 33.2 25-34 pg Mean Corpuscular Hemoglobin Concent 34.2 32-36 g/dl RDW Standard Deviation 46.6 36.4-46.3 fL RDW Coefficient of Variation 13.2 11.5-14.5 % Platelet Count 201 130-400 K/uL Mean Platelet Volume 10.9 7.4-10.4 fL Prothrombin Time 10.7 9.0-12.0 SECONDS Prothromb Time International Ratio 1.0 0.9-1.1 Activated Partial Thromboplast Time 24.8 21.0-31.0 SECONDS Partial Thromboplastin Ratio 1.0 Sodium Level 143 136-145 mmol/L Potassium Level 4.1 3.5-5.1 mmol/L Chloride Level 107 98-107 mmol/L Carbon Dioxide Level 29 21-32 mmol/L Anion Gap 7.0 3-11 mmol/L Blood Urea Nitrogen 19 7-18 mg/dl Creatinine 0.94 0.60-1.20 mg/dl Est Creatinine Clear Calc Drug Dose 69.0 ml/min Estimated GFR () 68.3 Estimated GFR (Non- 58.9 BUN/Creatinine Ratio 20.5 10-20 Random Glucose 103 70-99 mg/dl Calcium Level 8.8 8.5-10.1 mg/dl Magnesium Level 2.2 1.8-2.4 mg/dl Total Bilirubin 0.4 0.2-1 mg/dl Aspartate Amino Transf (AST/SGOT) 23 15-37 U/L Alanine Aminotransferase (ALT/SGPT) 31 12-78 U/L Alkaline Phosphatase 68 45-117 U/L Troponin I < 0.015 0-0.045 ng/ml Total Protein 6.8 6.4-8.2 gm/dl Albumin 3.5 3.4-5.0 gm/dl Globulin 3.3 2.5-4.0 gm/dl Albumin/Globulin Ratio 1.1 0.9-2 Thyroid Stimulating Hormone (TSH) 2.810 0.300-4.500 uIu/ml Free Thyroxine 1.18 0.80-1.60 ng/dl Diagnostic Radiology Patient Name: BARB MILLS Unit Number: [id number] Dictated: 08/07/[id number] Transcribed: 08/07/161649 EV Printed Date/Time: [~ rep prt dt]/[~ rep prt tm] [~ rep ct labl] - [~ rep ct ivnm] [facility] [place] [address] Dictated: 08/07/161649 Transcribed: 08/07/161649 EV Printed Date/Time: [~ rep prt dt]/[~ rep prt tm] [~ rep ct labl] - [~ rep ct ivnm] CLINICAL HISTORY: Atypical chest pain. FINDINGS: An AP, portable, upright chest radiograph is compared to chest x-ray and chest CT dated 07/26/2016. The examination is degraded by portable technique, large body habitus, and patient rotation. The heart is enlarged. The pulmonary vascular is noncongested. Calcified mediastinal and hilar lymph nodes are again noted. Chronic interstitial thickening is similar to previous. There is no airspace consolidation, pleural effusion, or pneumothorax. The skeletal structures are osteopenic. The bony thorax is grossly intact. IMPRESSION: Cardiomegaly with no acute cardiopulmonary abnormality. There has been no significant change from recent prior studies. Electronically signed by: Salomon Jose M.D. 08/07/2016 4:52 PM Dictated Date/Time: 08/07/2016 4:50 PM The status of this report is Signed. Draft = Not yet reviewed or approved by Radiologist. Signed = Reviewed and approved by Radiologist. <AttendingPhy></AttendingPhy> <FamilyPhy>Aisha Matthew DO</FamilyPhy> < PrimaryPhy>Aisha Matthew, </PrimaryPhy> <UnitNumber>[id number]</UnitNumber > <VisitNumber>[id number]</VisitNumber> <PatientName>BARB MILLS Tan</ PatientName> <DateOfBirth>1940</DateOfBirth> <Location>[facility]</Location> < ServiceDate>08/07/16</ServiceDate> <MNE>ESINDI</MNE> <OrderingPhy>Salomon Aguero M.D.</OrderingPhy> <OrderingPhyMNE>f rep ord dr parish</OrderingPhyMNE> < DictatingPhyMNE>f rep dict dr parish</DictatingPhyMNE> <CCListMNE>f rep ct марина</ CCListMNE> <AdmittingPhyMNE>f pt admit dr parish</AdmittingPhyMNE> <AttendingPhyMNE >f pt attend dr parish</AttendingPhyMNE> <ConsultingPhyMNE>f pt consult dr parish</ConsultingPhyMNE> <FamilyPhyMNE>f pt fam dr parish</FamilyPhyMNE> <OtherPhyMNE>f pt other dr parish</OtherPhyMNE> < PrimaryPhyMNE>f pt prim care dr parish</PrimaryPhyMNE> <ReferringPhyMNE>f pt referring dr parish</ReferringPhyMNE> EKG EKG shows normal sinus rhythm at 69 bpm, with intermittent ventricular bigeminy , no acute ST-T changes. Impression Assessment and Plan Near syncope/bradycardia/ventricular bigeminy--the patient admitted to the telemetry unit for rhythm monitoring. She has had pacer pads placed. We have consulted Dr. Dove to assess for possible need for pacer, as the patient's measured pulse periodically drops down into the 30s. Continue aspirin 81 mg by mouth daily and hold lisinopril 5 mg by mouth daily. Hypothyroidism-- continue levothyroxine 88 alternating 75 g daily. GERD--change omeprazole to pantoprazole per hospital formulary. Hypercholesterolemia--continue simvastatin 5 mg by mouth at bedtime. Level of Care Telemetry Advanced Directives Existing Advance Directive: No Existing Living Will: No Existing Power of Aviation Mechanic: No Resuscitation Status FULL RESUSCITATION VTE Prophylaxis VTE Risk Assessment Done? Y/N: Yes Risk Level: Moderate Given or contraindicated: SCD's
[2016-08-07] MEDS: NSS + 20MEQ KCL 1000ML 1,000 ML IV SCH (20:47)
[2016-08-07] MEDS: GABAPENTIN 300 MG CAP PO SCH (21:00)
[2016-08-07] MEDS: CHOLECALCIFEROL 1000 INTER.UNIT TAB PO SCH (21:42)
[2016-08-07] MEDS: SIMVASTATIN 5 MG TAB PO SCH (21:42)
[2016-08-08] VITALS (7 sets, daily range): BP systolic 110–158; BP diastolic 68–81; PULSE 55–74; TEMP 36.6–36.9; O2SAT 95–98
[2016-08-08 02:39] LABS: CKMB/CK RATIO 1.5 (0-3.0)
[2016-08-08 06:37] LABS: BASO % 0.4 %; BASO ABS # 0.02 K/uL (0-0.2); COMPLETE YES; EOS % 4.2 %; HEMATOCRIT 39.7 % (37-47); LYMPH % 40.5 %; LYMPH ABS # 1.83 K/uL (1.2-3.4); MEAN CELL VOLUME 96.6 fL (80-100); MEAN CORPUSCULAR HEMOGLOBIN 30.9 pg (25-34); MEAN PLATELET VOLUME 10.8 fL (7.4-10.4); MONO % 12.2 %; NEUT % 42.7 %; PLATELET COUNT 188 K/uL (130-400); RED BLOOD COUNT 4.11 M/uL (4.2-5.4); WHITE BLOOD COUNT 4.52 K/uL (4.8-10.8)
[2016-08-08] MEDS: LEVOTHYROXINE 75 MCG TAB PO SCH (06:43)
[2016-08-08 06:48] LABS: PROTHROMBIN TIME (PATIENT) 11.2 SECONDS (9.0-12.0)
[2016-08-08 07:20] LABS: CALCIUM 8.4 mg/dl (8.5-10.1); CREATININE 0.71 mg/dl (0.60-1.20); MAGNESIUM 2.1 mg/dl (1.8-2.4); POTASSIUM 3.9 mmol/L (3.5-5.1)
[2016-08-08] MEDS: CHOLECALCIFEROL 1000 INTER.UNIT TAB PO SCH ×2 (07:39→20:34)
[2016-08-08] MEDS: GABAPENTIN 300 MG CAP PO SCH ×3 (07:39→20:35)
[2016-08-08] MEDS: MULTIVITAMIN TAB PO SCH (07:39)
[2016-08-08] MEDS: PANTOprazole SOD 40 MG TAB PO SCH (07:39)
[2016-08-08] MEDS: ASPIRIN 81 MG ECTAB PO SCH (07:39)
[2016-08-08] MEDS: NSS + 20MEQ KCL 1000ML 1,000 ML IV SCH (07:40)
[2016-08-08] MEDS ORDERED: METOPROLOL SUCC 50MG EXT REL TAB PO STA (10:50)
--- NOTE | 2016-08-08 11:22 | Cardiology Consultation ---
Cardiology Consultation Date of Consultation: Aug 08, 2016. Requesting Physician: Dr. Granados Reason for Consultation: PVCs Pt evaluation today including: conversation w/ patient, conversation w/ family , physical exam, lab review, review of studies, review of inpatient medication list History of Present Illness This is a very pleasant 76-year-old woman who presents with a slow pulse rate and intermittent lightheadedness and presyncope. Although only recently diagnosed her symptoms of lightheadedness and presyncope and fatigue go back probably 3-4 months according to her and her daughter, more recently when she felt that way she checked her heart rate with a blood pressure cuff and her blood pressure was elevated but her heart rate was often in the 30s. Ultimately she saw her electronics assembler and tester who noted that her pulse rate was in the 30s and she was sent here, here she has been identified as having frequent premature ventricular beats and runs of ventricular bigeminy resulting in a slow pulse. She also has a history of palpitations many years ago (probably 15) at which time she was on atenolol, she tells me that was a very rapid heart rate and sounds as though was not this type of arrhythmia. She also describes chest discomfort, she was hospitalized recently for that, cardiac enzymes were negative, there were no electrocardiographic changes of ischemia and a dobutamine echo was negative for ischemia. On review of the dobutamine echo she did have very frequent premature ventricular beats at baseline, with a high heart rate on high doses of dobutamine the PVCs essentially resolved. The chest discomfort is of recent onset, and is not necessarily associated with the lightheaded or "foggy" sensation she has, when she had the chest discomfort at night it was a sharp discomfort lasting a few seconds and she would get up and walk around with resolution of the discomfort. It does not sound anginal. She notes that her lung capacity is reduced and she does see an electronics assembler and tester for seasonal allergies, she evidently has a history of asthma but says that currently she is not having any evidence of asthma. She has never had a severe asthmatic attack. Past Medical/Surgical History (1) Right Hip DJD (2) Benign hypertension (3) Gastroesophageal reflux disease (4) Hiatal hernia (5) Hyperlipidemia (6) DVT (deep venous thrombosis) (7) Pulmonary embolism Family History No significant family history Social History Smoking Status: Never Smoker History of Alcohol Use: No Review of Systems Constitutional: No fever, No weight loss, No weakness Respiratory: No cough, No wheezing, No shortness of breath, No dyspnea on exertion Cardiac: + see HPI, No chest pain, No orthopnea, No PND, No edema, No palpitations Abdomen: No pain, No nausea, No vomiting, No diarrhea, No GI bleeding Female : No problem reported Neurologic: No paralysis, No weakness, No numbness/tingling, No balance problems Heme: No abnormal bleeding/bruising, No clotting problems Endo: No fatigue Skin: No problem reported All Other Systems: Reviewed and Negative Allergies Coded Allergies: Adhesives (Verified Allergy, Unknown, REDNESS FROM EKG PATCHES, 08/07/16) Codeine (Verified Allergy, Unknown, DOPEY, 08/07/16) Lorazepam (Verified Allergy, Unknown, NAUSEA, 08/07/16) Oxycodone (Verified Allergy, Unknown, NAUSEA AND VOMITING, 08/07/16) POLLEN (Verified Allergy, Unknown, EYES AND THROAT ITCHY, 08/07/16) Propoxyphene (Verified Allergy, Unknown, nausea, 08/07/16) N/V--NEARLY COMATOSE? Erythromycin (Verified Adverse Reaction, Unknown, NAUSEA, 08/07/16) Morphine (Verified Adverse Reaction, Unknown, HALLUCINATIONS, 08/07/16) Prednisone (Verified Adverse Reaction, Unknown, "High dose prednisone" -- extreme anxiety, 08/07/16) Tramadol (Verified Adverse Reaction, Unknown, "loopy", 08/07/16) Medications Current Inpatient Medications Medications (Trade) Dose Ordered Sig/Kee Route Start Time Stop Time Status Last Admin Dose Admin Potassium Chloride/Sodium Chloride 1,000 ml @ 100 mls/hr Q10H IV 08/07/16 20:30 09/06/16 20:29 08/08/16 07:40 100 MLS/HR Acetaminophen (Tylenol Tab) 650 mg Q4H PRN PO 08/07/16 17:45 09/06/16 17:44 Aspirin (Ecotrin Tab) 81 mg DAILY PO 08/08/16 09:00 09/07/16 08:59 08/08/16 07:39 81 MG Cholecalciferol (Vitamin D Tab) 1,000 inter.unit BID PO 08/07/16 21:00 09/06/16 20:59 08/08/16 07:39 1,000 INTER.UNIT Gabapentin (Neurontin Cap) 300 mg TID PO 08/07/16 21:00 09/06/16 20:59 Levothyroxine Sodium (Synthroid Tab) 75 mcg Q2D@0630 PO 08/08/16 06:30 09/07/16 06:29 08/08/16 06:43 75 MCG Levothyroxine Sodium (Synthroid Tab) 88 mcg Q2D@0630 PO 08/09/16 06:30 09/08/16 06:29 Multivitamins (Multivitamin Tab) 2 tab DAILY PO 08/08/16 09:00 09/07/16 08:59 08/08/16 07:39 2 TAB Simvastatin (Zocor Tab) 5 mg HS PO 08/07/16 21:00 09/06/16 20:59 08/07/16 21:42 5 MG Pantoprazole Sodium (Protonix Tab) 40 mg QAM PO 08/08/16 09:00 09/07/16 08:59 08/08/16 07:39 40 MG Ondansetron HCl (Zofran Inj) 4 mg Q6H PRN IV 08/07/16 18:00 09/06/16 17:59 Metoprolol Succinate (Toprol Xl Tab) 100 mg NOW STAT PO 08/08/16 10:50 08/08/16 10:51 UNV Physical Exam Vital Signs Past 12 Hours Date Time Temp Pulse Resp B/P (MAP) Pulse Ox O2 Delivery O2 Flow Rate FiO2 08/08/16 08:00 96 Room Air 08/08/16 08:00 36.7 60 16 158/81 (106) 96 Room Air 08/08/16 06:19 36.7 55 18 118/72 (87) 96 Room Air 08/08/16 04:00 Room Air 08/08/16 00:00 Room Air 08/08/16 00:00 36.9 60 18 115/70 (85) 97 Room Air Constitutional: General Apperance: heathly-appearing Level of Distress: NAD Psychiatric: Mental Status: active & alert Head: normocephalic Eyes: EOM: EOMI ENMT: normal ENT inspection, hearing grossly normal Neck: supple, no masses Lungs: Respiratory effort: no dyspnea, good air movement Auscultation: breath sounds normal, no wheezing Cardiovascular: Heart Auscultation: RRR (With premature beats), no murmurs, no rubs, no gallops Peripheral Pulses: Bruits: none appreciated Abdomen: Bowel Sounds: normal Inspection & Palpation: soft, no tenderness, guarding & rebound, no masses Musculoskeletal: normal strength (5/5 throughout) Extremities: no edema Neurologic: Cranial Nerves: grossly intact Sensation: grossly intact Data Laboratory Results: Last 24 Hours Test 08/07/16 16:58 08/08/16 01:34 08/08/16 06:05 08/08/16 09:50 White Blood Count 5.74 K/uL 4.52 K/uL Red Blood Count 4.16 M/uL 4.11 M/uL Hemoglobin 13.8 g/dL 12.7 g/dL Hematocrit 40.3 % 39.7 % Mean Corpuscular Volume 96.9 fL 96.6 fL Mean Corpuscular Hemoglobin 33.2 pg 30.9 pg Mean Corpuscular Hemoglobin Concent 34.2 g/dl 32.0 g/dl RDW Standard Deviation 46.6 fL 47.9 fL RDW Coefficient of Variation 13.2 % 13.4 % Platelet Count 201 K/uL 188 K/uL Mean Platelet Volume 10.9 fL 10.8 fL Prothrombin Time 10.7 SECONDS 11.2 SECONDS Prothromb Time International Ratio 1.0 1.0 Activated Partial Thromboplast Time 24.8 SECONDS 25.1 SECONDS Partial Thromboplastin Ratio 1.0 1.0 Sodium Level 143 mmol/L 146 mmol/L Potassium Level 4.1 mmol/L 3.9 mmol/L Chloride Level 107 mmol/L 112 mmol/L Carbon Dioxide Level 29 mmol/L 26 mmol/L Anion Gap 7.0 mmol/L 8.0 mmol/L Blood Urea Nitrogen 19 mg/dl 15 mg/dl Creatinine 0.94 mg/dl 0.71 mg/dl Est Creatinine Clear Calc Drug Dose 69.0 ml/min 92.4 ml/min Estimated GFR () 68.3 95.9 Estimated GFR (Non- 58.9 82.7 BUN/Creatinine Ratio 20.5 21.0 Random Glucose 103 mg/dl 82 mg/dl Calcium Level 8.8 mg/dl 8.4 mg/dl Magnesium Level 2.2 mg/dl 2.1 mg/dl Total Bilirubin 0.4 mg/dl Aspartate Amino Transf (AST/SGOT) 23 U/L Alanine Aminotransferase (ALT/SGPT) 31 U/L Alkaline Phosphatase 68 U/L Troponin I < 0.015 ng/ml < 0.015 ng/ml < 0.015 ng/ml Total Protein 6.8 gm/dl Albumin 3.5 gm/dl Globulin 3.3 gm/dl Albumin/Globulin Ratio 1.1 Thyroid Stimulating Hormone (TSH) 2.810 uIu/ml Free Thyroxine 1.18 ng/dl Total Creatine Kinase 161 U/L 122 U/L Creatine Kinase MB 2.4 ng/ml 2.4 ng/ml Creatine Kinase MB Ratio 1.5 2.0 Chemistry Specimen Hemolysis Neutrophils (%) (Auto) 42.7 % Lymphocytes (%) (Auto) 40.5 % Monocytes (%) (Auto) 12.2 % Eosinophils (%) (Auto) 4.2 % Basophils (%) (Auto) 0.4 % Neutrophils # (Auto) 1.93 K/uL Lymphocytes # (Auto) 1.83 K/uL Monocytes # (Auto) 0.55 K/uL Eosinophils # (Auto) 0.19 K/uL Basophils # (Auto) 0.02 K/uL Immature Granulocyte % (Auto) 0.0 % Immature Granulocyte # (Auto) 0.00 K/uL EKG: SR with PVCs Telemetry reviewed: SR with very frequent PVCs Assessment & Plan #1. Lightheaded and "foggy" sensation: This appears to be due to a low effective heart rate, however her actual heart rate (including PVCs) does not appear to be low. She often has ventricular bigeminy resulting in a pulse deficit and therefore has a low effective heart rate which would be consistent with her symptoms. This has been present for a number of months, and is possibly progressive. Elimination of her premature ventricular beats may eliminate these symptoms. #2. Frequent premature ventricular beats: On electrocardiography these are likely from the right ventricular outflow tract, they appear to be isolated (I have not seen any nonsustained ventricular tachycardia) and they may respond to standard medical therapy. I would like to try beta blockade to start, if that doesn't work we can consider calcium blockade or antiarrhythmic therapy. Ultimately ablation could be considered if needed. Based on her echocardiogram she does not have right ventricular abnormalities although right ventricular dysplasia is difficult to diagnose by echo criteria. #3. Hypertension: Some of her hypertension is probably due to a low heart rate and elevated pulse pressure, prior to the last several months she does not recall having significant hypertension although she is treated for it with an TERI inhibitor. I would treat her premature beats and see whether that helps her hypertension as well. Thank you for allowing me to participate in her care.
--- NOTE | 2016-08-08 13:37 | Medical Student: [facility] ---
Med Student Progress Note Date of Service Aug 08, 2016. Subjective No acute events overnight. The patient is reporting the sensation of "butterflies" in her chest. Has not had an episode of her "foggy brain" or unclear thinking since being admitted to the hospital. She attributes this to being in the bed and thinks she would be significantly worse if she was up and walking around. On the patient monitor the patient is having frequent PVCs and going in and out of bigeminy. She has a pulse deficit, the PVCs are not resulting in a palpable pulse. Blood pressure is still elevated in the 150's/80 at this time. Review of Systems Constitutional: + weakness, + fatigue, No fever, No chills, No sweats Eyes: No diplopia Respiratory: No wheezing, No shortness of breath Cardiac: + chest pain, + edema, + palpitations Abdomen: No pain, No nausea, No vomiting, No diarrhea, No constipation Objective Vital Signs Date Time Temp Pulse Resp B/P (MAP) Pulse Ox O2 Delivery O2 Flow Rate FiO2 08/08/16 12:00 36.7 74 16 121/76 (91) 97 Room Air 08/08/16 12:00 97 Room Air 08/08/16 08:00 96 Room Air 08/08/16 08:00 36.7 60 16 158/81 (106) 96 Room Air 08/08/16 06:19 36.7 55 18 118/72 (87) 96 Room Air 08/08/16 04:00 Room Air 08/08/16 00:00 Room Air 08/08/16 00:00 36.9 60 18 115/70 (85) 97 Room Air 08/07/16 20:00 Room Air 08/07/16 20:00 36.5 64 20 174/94 98 Room Air 08/07/16 19:25 67 18 156/85 95 08/07/16 19:17 67 18 156/85 95 Room Air 08/07/16 18:17 64 18 146/91 97 Room Air 08/07/16 17:30 94 Room Air 08/07/16 17:30 94 Room Air 08/07/16 16:39 76 08/07/16 16:24 36.3 60 18 146/86 98 Room Air Physical Exam General Appearance: WD/WN, no apparent distress ENT: hearing grossly normal, pharynx normal Neck: supple, no adenopathy, thyroid normal Respiratory/Chest: chest non-tender, lungs clear, normal breath sounds, no respiratory distress, no accessory muscle use Cardiovascular: no JVD, no murmur, + bradycardia, + extra beats Abdomen: non tender, soft, no organomegaly Neurologic/Psychiatric: alert, normal mood/affect, oriented x 3 Laboratory Results Last 24 Hours Test 08/07/16 16:58 08/08/16 01:34 08/08/16 06:05 08/08/16 09:50 White Blood Count 5.74 K/uL 4.52 K/uL Red Blood Count 4.16 M/uL 4.11 M/uL Hemoglobin 13.8 g/dL 12.7 g/dL Hematocrit 40.3 % 39.7 % Mean Corpuscular Volume 96.9 fL 96.6 fL Mean Corpuscular Hemoglobin 33.2 pg 30.9 pg Mean Corpuscular Hemoglobin Concent 34.2 g/dl 32.0 g/dl RDW Standard Deviation 46.6 fL 47.9 fL RDW Coefficient of Variation 13.2 % 13.4 % Platelet Count 201 K/uL 188 K/uL Mean Platelet Volume 10.9 fL 10.8 fL Prothrombin Time 10.7 SECONDS 11.2 SECONDS Prothromb Time International Ratio 1.0 1.0 Activated Partial Thromboplast Time 24.8 SECONDS 25.1 SECONDS Partial Thromboplastin Ratio 1.0 1.0 Sodium Level 143 mmol/L 146 mmol/L Potassium Level 4.1 mmol/L 3.9 mmol/L Chloride Level 107 mmol/L 112 mmol/L Carbon Dioxide Level 29 mmol/L 26 mmol/L Anion Gap 7.0 mmol/L 8.0 mmol/L Blood Urea Nitrogen 19 mg/dl 15 mg/dl Creatinine 0.94 mg/dl 0.71 mg/dl Est Creatinine Clear Calc Drug Dose 69.0 ml/min 92.4 ml/min Estimated GFR () 68.3 95.9 Estimated GFR (Non- 58.9 82.7 BUN/Creatinine Ratio 20.5 21.0 Random Glucose 103 mg/dl 82 mg/dl Calcium Level 8.8 mg/dl 8.4 mg/dl Magnesium Level 2.2 mg/dl 2.1 mg/dl Total Bilirubin 0.4 mg/dl Aspartate Amino Transf (AST/SGOT) 23 U/L Alanine Aminotransferase (ALT/SGPT) 31 U/L Alkaline Phosphatase 68 U/L Troponin I < 0.015 ng/ml < 0.015 ng/ml < 0.015 ng/ml Total Protein 6.8 gm/dl Albumin 3.5 gm/dl Globulin 3.3 gm/dl Albumin/Globulin Ratio 1.1 Thyroid Stimulating Hormone (TSH) 2.810 uIu/ml Free Thyroxine 1.18 ng/dl Total Creatine Kinase 161 U/L 122 U/L Creatine Kinase MB 2.4 ng/ml 2.4 ng/ml Creatine Kinase MB Ratio 1.5 2.0 Chemistry Specimen Hemolysis Neutrophils (%) (Auto) 42.7 % Lymphocytes (%) (Auto) 40.5 % Monocytes (%) (Auto) 12.2 % Eosinophils (%) (Auto) 4.2 % Basophils (%) (Auto) 0.4 % Neutrophils # (Auto) 1.93 K/uL Lymphocytes # (Auto) 1.83 K/uL Monocytes # (Auto) 0.55 K/uL Eosinophils # (Auto) 0.19 K/uL Basophils # (Auto) 0.02 K/uL Immature Granulocyte % (Auto) 0.0 % Immature Granulocyte # (Auto) 0.00 K/uL Assessment and Plan Problems Bradycardia Chest pain Assessment and Plan: In summary, the patient is a 76 year old woman with symptomatic bradycardia and PVCs. She is in bigeminy a significant portion of the time. At this time, it seems that her bradycardia has progressed to her being symptomatic/presyncopal. Although her heart rate is in the 60's, her pulse is only in the 30's because the PVCs are not resulting in forward movement of blood from the heart. Presyncope/bradycardia- Start metoprolol 100mg qd at this time. Although she is borderline bradycardic, if the beta-blockade corrects the rhythm so that all beats result in cardiac output she may feel better. Consider calcium channel blockers or class Ic antiarrhythmics if the patient fails the trial of metoprolol. If medication fails to control her rhythm, she may need an EP study with ablation and pacemaker if symptoms continue. Blood pressure- Her blood pressure is elevated with an increased pulse pressure. This is likely in an attempt to maintain MAP with her pulse in the 30' s. I suspect the blood pressure will normalize upon correcting her arrhythmia. Hypothyroid- Patient is euthyroid. Continue outpatient dose of levothyroxine 88 mg/75mg alternating days. Hypercholesterolemia- Continue simvastatin 5mg qd. GERD- Continue pantoprazole Patient is a full code Reviewed: Pt Seen/Exam by Me History See my note for details.
[2016-08-08] MEDS ORDERED: NURSING VERBAL MED ORDER ONE (18:30)
--- NOTE | 2016-08-08 19:08 | Progress Note ---
Subjective Date of Service: Aug 08, 2016. Subjective Pt evaluation today including: conversation w/ patient Pt is feeling improved. No "foggy" sensations today. No further chest pain. Has been ambulating without issue. Eating without issue. Pt denies fever, SOB , abd pain, n/v/c/d, LE pain or swelling. ROS as noted above, otherwise neg. Problem List Medical Problems: (1) Bradycardia Status: Acute (2) Near syncope Status: Acute (3) Precordial chest pain Status: Acute (4) Right-sided chest pain Status: Acute (5) Upper abdominal pain Status: Acute Objective Vital Signs Date Time Temp Pulse Resp B/P (MAP) Pulse Ox O2 Delivery O2 Flow Rate FiO2 08/08/16 16:00 36.6 60 17 141/75 (97) 98 Room Air 08/08/16 16:00 96 Room Air 08/08/16 12:00 36.7 74 16 121/76 (91) 97 Room Air 08/08/16 12:00 97 Room Air 08/08/16 08:00 96 Room Air 08/08/16 08:00 36.7 60 16 158/81 (106) 96 Room Air 08/08/16 06:19 36.7 55 18 118/72 (87) 96 Room Air 08/08/16 04:00 Room Air 08/08/16 00:00 Room Air 08/08/16 00:00 36.9 60 18 115/70 (85) 97 Room Air 08/07/16 20:00 Room Air 08/07/16 20:00 36.5 64 20 174/94 98 Room Air 08/07/16 19:25 67 18 156/85 95 08/07/16 19:17 67 18 156/85 95 Room Air Physical Exam General Appearance: WD/WN, no apparent distress Respiratory/Chest: normal breath sounds, no respiratory distress Cardiovascular: regular rate, rhythm, no edema Abdomen: non tender, soft Extremities: non-tender, no pedal edema Neurologic/Psychiatric: alert, oriented x 3 Skin: normal color, warm/dry Laboratory Results Last 24 Hours Test 08/08/16 01:34 08/08/16 06:05 08/08/16 09:50 Total Creatine Kinase 161 U/L 122 U/L Creatine Kinase MB 2.4 ng/ml 2.4 ng/ml Creatine Kinase MB Ratio 1.5 2.0 Troponin I < 0.015 ng/ml < 0.015 ng/ml Chemistry Specimen Hemolysis White Blood Count 4.52 K/uL Red Blood Count 4.11 M/uL Hemoglobin 12.7 g/dL Hematocrit 39.7 % Mean Corpuscular Volume 96.6 fL Mean Corpuscular Hemoglobin 30.9 pg Mean Corpuscular Hemoglobin Concent 32.0 g/dl Platelet Count 188 K/uL Mean Platelet Volume 10.8 fL Neutrophils (%) (Auto) 42.7 % Lymphocytes (%) (Auto) 40.5 % Monocytes (%) (Auto) 12.2 % Eosinophils (%) (Auto) 4.2 % Basophils (%) (Auto) 0.4 % Neutrophils # (Auto) 1.93 K/uL Lymphocytes # (Auto) 1.83 K/uL Monocytes # (Auto) 0.55 K/uL Eosinophils # (Auto) 0.19 K/uL Basophils # (Auto) 0.02 K/uL RDW Standard Deviation 47.9 fL RDW Coefficient of Variation 13.4 % Immature Granulocyte % (Auto) 0.0 % Immature Granulocyte # (Auto) 0.00 K/uL Prothrombin Time 11.2 SECONDS Prothromb Time International Ratio 1.0 Activated Partial Thromboplast Time 25.1 SECONDS Partial Thromboplastin Ratio 1.0 Sodium Level 146 mmol/L Potassium Level 3.9 mmol/L Chloride Level 112 mmol/L Carbon Dioxide Level 26 mmol/L Anion Gap 8.0 mmol/L Blood Urea Nitrogen 15 mg/dl Creatinine 0.71 mg/dl Est Creatinine Clear Calc Drug Dose 92.4 ml/min Estimated GFR () 95.9 Estimated GFR (Non- 82.7 BUN/Creatinine Ratio 21.0 Random Glucose 82 mg/dl Calcium Level 8.4 mg/dl Magnesium Level 2.1 mg/dl Assessment and Plan Near syncope/bradycardia/ventricular bigeminy--the patient admitted to the telemetry unit for rhythm monitoring. Cards would like to monitor on metoprolol initially TSH WNL Trop neg Recent observation admission with stress test essentially WNL Hypothyroidism-- continue levothyroxine 88 alternating 75 g daily. GERD--change omeprazole to pantoprazole per hospital formulary. Hypercholesterolemia--continue simvastatin 5 mg by mouth at bedtime.
[2016-08-08] MEDS: SIMVASTATIN 5 MG TAB PO SCH (20:34)
[2016-08-09] VITALS (9 sets, daily range): BP systolic 109–159; BP diastolic 59–84; PULSE 52–73; TEMP 36.4–37.1; O2SAT 96–98
[2016-08-09] MEDS: LEVOTHYROXINE 88 MCG TAB PO SCH (06:14)
[2016-08-09 06:32] LABS: BASO % 0.6 %; BASO ABS # 0.03 K/uL (0-0.2); COMPLETE YES; EOS % 6.9 %; HEMATOCRIT 42.7 % (37-47); LYMPH % 43.2 %; MEAN CELL VOLUME 97.7 fL (80-100); MEAN CORPUSCULAR HGB CONC 33.7 g/dl (32-36); MEAN PLATELET VOLUME 11.1 fL (7.4-10.4); MONO % 11.3 %; PLATELET COUNT 194 K/uL (130-400); RED BLOOD COUNT 4.37 M/uL (4.2-5.4); WHITE BLOOD COUNT 5.33 K/uL (4.8-10.8)
[2016-08-09 06:39] LABS: PROTHROMBIN TIME (PATIENT) 10.8 SECONDS (9.0-12.0)
[2016-08-09 06:59] LABS: BUN/CREATININE RATIO 18.3 (10-20); CALCIUM 8.8 mg/dl (8.5-10.1); CREATININE 0.91 mg/dl (0.60-1.20); MAGNESIUM 2.2 mg/dl (1.8-2.4); POTASSIUM 4.3 mmol/L (3.5-5.1)
[2016-08-09] MEDS: MULTIVITAMIN TAB PO SCH (07:49)
[2016-08-09] MEDS: CHOLECALCIFEROL 1000 INTER.UNIT TAB PO SCH ×2 (07:49→20:49)
[2016-08-09] MEDS: GABAPENTIN 300 MG CAP PO SCH ×2 (07:49→07:51)
[2016-08-09] MEDS: ASPIRIN 81 MG ECTAB PO SCH (07:49)
[2016-08-09] MEDS: PANTOprazole SOD 40 MG TAB PO SCH (07:50)
[2016-08-09] MEDS ORDERED: NURSING VERBAL MED ORDER ONE (09:00)
[2016-08-09] MEDS ORDERED: GABAPENTIN 300 MG CAP PO PRN (09:15)
[2016-08-09] MEDS ORDERED: FLECAINIDE ACETATE 100 MG TAB PO ONE (12:30)
--- NOTE | 2016-08-09 12:37 | Cardiology Follow-Up ---
Subjective Date of Service: Aug 09, 2016. Pt evaluation today including: conversation w/ patient, physical exam, lab review, review of studies, review of inpatient medication list History of Present Illness This is a very pleasant 76-year-old woman who presents with a slow pulse rate and intermittent lightheadedness and presyncope. Although only recently diagnosed her symptoms of lightheadedness and presyncope and fatigue go back probably 3-4 months according to her and her daughter, more recently when she felt that way she checked her heart rate with a blood pressure cuff and her blood pressure was elevated but her heart rate was often in the 30s. Ultimately she saw her cook station who noted that her pulse rate was in the 30s and she was sent here, here she has been identified as having frequent premature ventricular beats and runs of ventricular bigeminy resulting in a slow pulse. She also has a history of palpitations many years ago (probably 15) at which time she was on atenolol, she tells me that was a very rapid heart rate and sounds as though was not this type of arrhythmia. She also describes chest discomfort, she was hospitalized recently for that, cardiac enzymes were negative, there were no electrocardiographic changes of ischemia and a dobutamine echo was negative for ischemia. On review of the dobutamine echo she did have very frequent premature ventricular beats at baseline, with a high heart rate on high doses of dobutamine the PVCs essentially resolved. The chest discomfort is of recent onset, and is not necessarily associated with the lightheaded or "foggy" sensation she has, when she had the chest discomfort at night it was a sharp discomfort lasting a few seconds and she would get up and walk around with resolution of the discomfort. It does not sound anginal. She notes that her lung capacity is reduced and she does see an cook station for seasonal allergies, she evidently has a history of asthma but says that currently she is not having any evidence of asthma. She has never had a severe asthmatic attack. I gave her 100 mg of metoprolol succinate yesterday, that was given around noon. She continued to have frequent premature beats and symptoms in tell night time when they resolved somewhat. They've resumed this morning. She did tolerate the dose well. Social History Smoking Status: Never Smoker History of Alcohol Use: No Review of Systems Respiratory: No cough, No wheezing, No shortness of breath, No dyspnea on exertion Cardiac: + see HPI, No chest pain, No orthopnea, No PND, No edema, No palpitations Objective Vital Signs Past 12 Hours Date Time Temp Pulse Resp B/P (MAP) Pulse Ox O2 Delivery O2 Flow Rate FiO2 08/09/16 11:40 36.6 60 18 130/84 (99) 96 Room Air 08/09/16 11:30 Room Air 08/09/16 09:36 64 20 131/60 (83) 98 Room Air 08/09/16 08:00 63 08/09/16 07:30 Room Air 08/09/16 07:30 37.1 52 20 140/68 (92) 98 Room Air 08/09/16 04:00 Room Air 08/09/16 04:00 36.4 62 20 159/70 (99) 98 Room Air Last Recorded Weight-Kilograms: 114.400 Physical Exam Constitutional: General Apperance: heathly-appearing Level of Distress: NAD Lungs: Respiratory effort: no dyspnea, good air movement Auscultation: breath sounds normal, no wheezing Cardiovascular: Heart Auscultation: RRR (With premature beats), no murmurs, no rubs, no gallops Peripheral Pulses: Bruits: none appreciated Extremities: no edema Data Laboratory Results: Last 24 Hours Test 08/09/16 06:20 White Blood Count 5.33 K/uL Red Blood Count 4.37 M/uL Hemoglobin 14.4 g/dL Hematocrit 42.7 % Mean Corpuscular Volume 97.7 fL Mean Corpuscular Hemoglobin 33.0 pg Mean Corpuscular Hemoglobin Concent 33.7 g/dl Platelet Count 194 K/uL Mean Platelet Volume 11.1 fL Neutrophils (%) (Auto) 38.0 % Lymphocytes (%) (Auto) 43.2 % Monocytes (%) (Auto) 11.3 % Eosinophils (%) (Auto) 6.9 % Basophils (%) (Auto) 0.6 % Neutrophils # (Auto) 2.03 K/uL Lymphocytes # (Auto) 2.30 K/uL Monocytes # (Auto) 0.60 K/uL Eosinophils # (Auto) 0.37 K/uL Basophils # (Auto) 0.03 K/uL RDW Standard Deviation 47.4 fL RDW Coefficient of Variation 13.4 % Immature Granulocyte % (Auto) 0.0 % Immature Granulocyte # (Auto) 0.00 K/uL Prothrombin Time 10.8 SECONDS Prothromb Time International Ratio 1.0 Activated Partial Thromboplast Time 24.8 SECONDS Partial Thromboplastin Ratio 1.0 Sodium Level 145 mmol/L Potassium Level 4.3 mmol/L Chloride Level 111 mmol/L Carbon Dioxide Level 27 mmol/L Anion Gap 7.0 mmol/L Blood Urea Nitrogen 17 mg/dl Creatinine 0.91 mg/dl Est Creatinine Clear Calc Drug Dose 72.1 ml/min Estimated GFR () 71.0 Estimated GFR (Non- 61.3 BUN/Creatinine Ratio 18.3 Random Glucose 92 mg/dl Calcium Level 8.8 mg/dl Magnesium Level 2.2 mg/dl EKG: Sinus rhythm with frequent ventricular beats, suggesting a right trigger outflow tract origin. Telemetry reviewed: Very frequent predominantly unifocal premature ventricular beats yesterday, overnight very little, with resumption this morning. No complexity. Assessment and Plan #1. Lightheaded and "foggy" sensation: This appears to be due to a low effective heart rate, however her actual heart rate (including PVCs) does not appear to be low. She often has ventricular bigeminy resulting in a pulse deficit and therefore has a low effective heart rate which would be consistent with her symptoms. This has been present for a number of months, and is possibly progressive. Elimination of her premature ventricular beats may eliminate these symptoms. #2. Frequent premature ventricular beats: On electrocardiography these are likely from the right ventricular outflow tract, they appear to be isolated (I have not seen any nonsustained ventricular tachycardia) and they may respond to standard medical therapy. I tried beta blockade to start, however at a reasonable dose that seemed to have very little effect. I would like to try an antiarrhythmic agent now, I will try flecainide starting today. Ultimately ablation could be considered if needed. Based on her echocardiogram she does not have right ventricular abnormalities although right ventricular dysplasia is difficult to diagnose by echo criteria. #3. Hypertension: Some of her hypertension is probably due to a low heart rate and elevated pulse pressure, prior to the last several months she does not recall having significant hypertension although she is treated for it with an TERI inhibitor. I would treat her premature beats and see whether that helps her hypertension as well. Thank you for allowing me to participate in her care.
--- NOTE | 2016-08-09 16:15 | Progress Note ---
Subjective Date of Service: Aug 09, 2016. Subjective Pt evaluation today including: conversation w/ patient, chart review, conversation w/ consultant in ergonomics and safety Pt without much "fogginess" however she did feel a bit foggy with prolonged ambulation. She thought maybe she was dehydrated and drank additional water, but this has persisted. Tolerating PO without issue. Pt denies fever, SOB, chest pain, abd pain, n/v/c/d, LE pain or swelling. ROS as noted above, otherwise neg. Problem List Medical Problems: (1) Bradycardia Status: Acute (2) Near syncope Status: Acute (3) Precordial chest pain Status: Acute (4) Right-sided chest pain Status: Acute (5) Upper abdominal pain Status: Acute Review of Systems All Other Systems: Reviewed and Negative Objective Vital Signs Date Time Temp Pulse Resp B/P (MAP) Pulse Ox O2 Delivery O2 Flow Rate FiO2 08/09/16 15:45 36.8 64 18 122/59 (80) 96 Room Air 08/09/16 15:45 Room Air 08/09/16 11:40 36.6 60 18 130/84 (99) 96 Room Air 08/09/16 11:30 Room Air 08/09/16 09:36 64 20 131/60 (83) 98 Room Air 08/09/16 08:00 63 08/09/16 07:30 Room Air 08/09/16 07:30 37.1 52 20 140/68 (92) 98 Room Air 08/09/16 04:00 Room Air 08/09/16 04:00 36.4 62 20 159/70 (99) 98 Room Air 08/08/16 23:59 Room Air 08/08/16 23:59 36.6 59 16 131/73 (92) 95 Room Air 08/08/16 20:00 Room Air 08/08/16 20:00 36.6 59 18 110/68 (82) 96 Room Air Physical Exam Comments: General Appearance: WD/WN, no apparent distress Respiratory/Chest: normal breath sounds, no respiratory distress Cardiovascular: regular rate, rhythm, no edema Abdomen: non tender, soft Extremities: non-tender, no pedal edema Neurologic/Psychiatric: alert, oriented x 3 Skin: normal color, warm/dry Laboratory Results Last 24 Hours Test 08/09/16 06:20 White Blood Count 5.33 K/uL Red Blood Count 4.37 M/uL Hemoglobin 14.4 g/dL Hematocrit 42.7 % Mean Corpuscular Volume 97.7 fL Mean Corpuscular Hemoglobin 33.0 pg Mean Corpuscular Hemoglobin Concent 33.7 g/dl Platelet Count 194 K/uL Mean Platelet Volume 11.1 fL Neutrophils (%) (Auto) 38.0 % Lymphocytes (%) (Auto) 43.2 % Monocytes (%) (Auto) 11.3 % Eosinophils (%) (Auto) 6.9 % Basophils (%) (Auto) 0.6 % Neutrophils # (Auto) 2.03 K/uL Lymphocytes # (Auto) 2.30 K/uL Monocytes # (Auto) 0.60 K/uL Eosinophils # (Auto) 0.37 K/uL Basophils # (Auto) 0.03 K/uL RDW Standard Deviation 47.4 fL RDW Coefficient of Variation 13.4 % Immature Granulocyte % (Auto) 0.0 % Immature Granulocyte # (Auto) 0.00 K/uL Prothrombin Time 10.8 SECONDS Prothromb Time International Ratio 1.0 Activated Partial Thromboplast Time 24.8 SECONDS Partial Thromboplastin Ratio 1.0 Sodium Level 145 mmol/L Potassium Level 4.3 mmol/L Chloride Level 111 mmol/L Carbon Dioxide Level 27 mmol/L Anion Gap 7.0 mmol/L Blood Urea Nitrogen 17 mg/dl Creatinine 0.91 mg/dl Est Creatinine Clear Calc Drug Dose 72.1 ml/min Estimated GFR () 71.0 Estimated GFR (Non- 61.3 BUN/Creatinine Ratio 18.3 Random Glucose 92 mg/dl Calcium Level 8.8 mg/dl Magnesium Level 2.2 mg/dl Assessment and Plan Near syncope/bradycardia/ventricular bigeminy--the patient admitted to the telemetry unit for rhythm monitoring. Metoprolol started 08/08, however PVCs/bigeminy have persisted with ongoing sx as well, flecainide started today and monitor TSH WNL Trop neg Recent observation admission with stress test essentially WNL Hypothyroidism-- continue levothyroxine 88 alternating 75 g daily. GERD--change omeprazole to pantoprazole per hospital formulary. Hypercholesterolemia--continue simvastatin 5 mg by mouth at bedtime.
[2016-08-09] MEDS: SIMVASTATIN 5 MG TAB PO SCH (20:49)
[2016-08-09] MEDS: FLECAINIDE ACETATE 100 MG TAB PO SCH (20:50)
[2016-08-10] VITALS (10 sets, daily range): BP systolic 128–155; BP diastolic 62–97; PULSE 57–76; TEMP 36.4–36.7; O2SAT 95–98
[2016-08-10] MEDS: LEVOTHYROXINE 75 MCG TAB PO SCH (06:10)
[2016-08-10] MEDS: FLECAINIDE ACETATE 100 MG TAB PO SCH (07:55)
[2016-08-10] MEDS: PANTOprazole SOD 40 MG TAB PO SCH (07:55)
[2016-08-10] MEDS: ASPIRIN 81 MG ECTAB PO SCH (07:55)
[2016-08-10] MEDS: MULTIVITAMIN TAB PO SCH (07:55)
[2016-08-10] MEDS: CHOLECALCIFEROL 1000 INTER.UNIT TAB PO SCH ×2 (07:56→21:10)
--- NOTE | 2016-08-10 14:49 | Cardiology Follow-Up ---
Subjective Date of Service: Aug 10, 2016. Pt evaluation today including: conversation w/ patient, conversation w/ family , physical exam, lab review, review of studies, review of inpatient medication list History of Present Illness This is a very pleasant 76-year-old woman who presents with a slow pulse rate and intermittent lightheadedness and presyncope. Although only recently diagnosed her symptoms of lightheadedness and presyncope and fatigue go back probably 3-4 months according to her and her daughter, more recently when she felt that way she checked her heart rate with a blood pressure cuff and her blood pressure was elevated but her heart rate was often in the 30s. Ultimately she saw her preform plate maker who noted that her pulse rate was in the 30s and she was sent here, here she has been identified as having frequent premature ventricular beats and runs of ventricular bigeminy resulting in a slow pulse. She also has a history of palpitations many years ago (probably 15) at which time she was on atenolol, she tells me that was a very rapid heart rate and sounds as though was not this type of arrhythmia. She also describes chest discomfort, she was hospitalized recently for that, cardiac enzymes were negative, there were no electrocardiographic changes of ischemia and a dobutamine echo was negative for ischemia. On review of the dobutamine echo she did have very frequent premature ventricular beats at baseline, with a high heart rate on high doses of dobutamine the PVCs essentially resolved. The chest discomfort is of recent onset, and is not necessarily associated with the lightheaded or "foggy" sensation she has, when she had the chest discomfort at night it was a sharp discomfort lasting a few seconds and she would get up and walk around with resolution of the discomfort. It does not sound anginal. She notes that her lung capacity is reduced and she does see an preform plate maker for seasonal allergies, she evidently has a history of asthma but says that currently she is not having any evidence of asthma. She has never had a severe asthmatic attack. I started her on metoprolol succinate 100 mg daily, that seemed to have virtually no effect. I therefore stopped the metoprolol and started her on flecainide 100 mg twice a day around noon on 08/09/2016. That also seems to have had no effect, although she has been tolerating those medications well. In bed she feels well, she is not having much difficulty with palpitations and has not been out of bed enough to have the presyncopal spells. Social History Smoking Status: Never Smoker History of Alcohol Use: No Review of Systems Respiratory: No cough, No wheezing, No shortness of breath, No dyspnea on exertion Cardiac: + see HPI, No chest pain, No orthopnea, No PND, No edema, No palpitations Medications Cardiovascular: Item Value Date Time Flecainide Acetate 100 mg 08/09/162099 (Tambocor Tab) Q12/PO 08/10/16 075 Aspirin 81 mg 08/08/16 0900 (Ecotrin Tab) DAILY/PO 08/10/16 075 Simvastatin 5 mg 08/07/162099 (Zocor Tab) HS/PO 08/09/162048 Objective Vital Signs Past 12 Hours Date Time Temp Pulse Resp B/P (MAP) Pulse Ox O2 Delivery O2 Flow Rate FiO2 08/10/16 12:00 96 Room Air 08/10/16 11:27 36.5 76 19 128/73 (91) 97 Room Air 08/10/16 08:00 96 Room Air 08/10/16 07:47 36.5 63 18 144/62 (89) 95 Room Air 08/10/16 04:16 36.4 66 18 142/93 (109) 96 Room Air 08/10/16 04:00 96 Room Air Last Recorded Weight-Kilograms: 115.100 Intake & Output 8-Hour Column 08/10/16 08/10/16 08/11/16 15:59 23:59 07:59 Intake Total 480 ml Balance 480 ml 24-Hour Column 08/11/16 07:59 Intake Total 480 ml Balance 480 ml Physical Exam Constitutional: General Apperance: heathly-appearing Level of Distress: NAD Lungs: Respiratory effort: no dyspnea, good air movement Auscultation: breath sounds normal, no wheezing Cardiovascular: Heart Auscultation: RRR (With premature beats), no murmurs, no rubs, no gallops Peripheral Pulses: Bruits: none appreciated Extremities: no edema Data Telemetry reviewed: Sinus rhythm with very frequent premature ventricular beats , no real change in frequency since yesterday. Assessment and Plan #1. Lightheaded and "foggy" sensation: This appears to be due to a low effective heart rate, however her actual heart rate (including PVCs) does not appear to be low. She often has ventricular bigeminy resulting in a pulse deficit and therefore has a low effective heart rate which would be consistent with her symptoms. This has been present for a number of months, and is possibly progressive. Elimination of her premature ventricular beats may eliminate these symptoms. #2. Frequent premature ventricular beats: On electrocardiography these are likely from the right ventricular outflow tract, they appear to be isolated (I have not seen any nonsustained ventricular tachycardia) and they may respond to standard medical therapy. I tried beta blockade to start, however at a reasonable dose that seemed to have very little effect. I also tried flecainide at a reasonable dose and that also had no effect. I would like to try amiodarone , but do not want to overlap. I'm therefore going to leave her off of antiarrhythmic therapy overnight and start intravenous amiodarone tomorrow morning. If that doesn't work we will probably have no option other than to consider ablation. Based on her echocardiogram she does not have right ventricular abnormalities although right ventricular dysplasia is difficult to diagnose by echo criteria. #3. Hypertension: Some of her hypertension is probably due to a low heart rate and elevated pulse pressure, prior to the last several months she does not recall having significant hypertension although she is treated for it with an TERI inhibitor. I would treat her premature beats and see whether that helps her hypertension as well. Her blood pressure has been somewhat variable but not very high here. Thank you for allowing me to participate in her care.
--- NOTE | 2016-08-10 16:09 | Progress Note ---
Subjective Date of Service: Aug 10, 2016. Subjective Pt evaluation today including: conversation w/ patient Pt felt she was doing better this AM until she was given flecinide. Has been fatigued and less steady on her feet since that time. No pre-syncope or lightheadedness, just feels less well overall. Tolerating PO without issue. No return of chest pain. Pt denies fever, SOB, abd pain, n/v/c/d, LE pain or swelling. Problem List Medical Problems: (1) Bradycardia Status: Acute (2) Near syncope Status: Acute (3) Precordial chest pain Status: Acute (4) Right-sided chest pain Status: Acute (5) Upper abdominal pain Status: Acute Objective Vital Signs Date Time Temp Pulse Resp B/P (MAP) Pulse Ox O2 Delivery O2 Flow Rate FiO2 08/10/16 15:50 36.7 57 16 155/97 (116) 97 Room Air 08/10/16 12:00 96 Room Air 08/10/16 11:27 36.5 76 19 128/73 (91) 97 Room Air 08/10/16 08:00 96 Room Air 08/10/16 07:47 36.5 63 18 144/62 (89) 95 Room Air 08/10/16 04:16 36.4 66 18 142/93 (109) 96 Room Air 08/10/16 04:00 96 Room Air 08/10/16 00:00 97 Room Air 08/09/16 23:56 36.5 53 18 109/60 (76) 97 Room Air 08/09/16 20:00 Room Air 08/09/16 19:59 36.6 73 16 151/72 (98) 96 Room Air 08/09/16 16:55 37.0 68 20 141/73 (95) 96 Room Air Physical Exam Eyes: normal inspection, EOMI Comments: General Appearance: WD/WN, no apparent distress Respiratory/Chest: normal breath sounds, no respiratory distress Cardiovascular: regular rate, rhythm, no edema Abdomen: non tender, soft Extremities: non-tender, no pedal edema Neurologic/Psychiatric: alert, oriented x 3 Skin: normal color, warm/dry Assessment and Plan Near syncope/bradycardia/ventricular bigeminy--the patient admitted to the telemetry unit for rhythm monitoring. Metoprolol started 08/08, however PVCs/bigeminy have persisted with ongoing sx as well, flecainide started 08/09, however pt feeling unwell with this with ongoing PVCs/bigeminy Cards will give no meds overnight and start IV amio tomorrow. May need to pursue ablation. TSH WNL Trop neg Recent observation admission with stress test essentially WNL Hypothyroidism-- continue levothyroxine 88 alternating 75 g daily. GERD--change omeprazole to pantoprazole per hospital formulary. Hypercholesterolemia--continue simvastatin 5 mg by mouth at bedtime.
[2016-08-10] MEDS: SIMVASTATIN 5 MG TAB PO SCH (21:10)
[2016-08-10] MEDS ORDERED: NURSING VERBAL MED ORDER ONE (22:45)
[2016-08-11] VITALS (9 sets, daily range): BP systolic 127–161; BP diastolic 62–86; PULSE 33–71; TEMP 36.4–36.7; O2SAT 96–100
[2016-08-11] MEDS ORDERED: AMIODARONE / D5W 100 ML IV ONE (06:00)
[2016-08-11] MEDS ORDERED: AMIODARONE IV BOLUS / DRIP IV SCH (06:00)
[2016-08-11] MEDS: LEVOTHYROXINE 88 MCG TAB PO SCH (06:07)
[2016-08-11] MEDS ORDERED: AMIODARONE / D5W 200 ML IV SCH ×2 (06:09→12:09)
[2016-08-11] MEDS: ASPIRIN 81 MG ECTAB PO SCH (08:56)
[2016-08-11] MEDS: MULTIVITAMIN TAB PO SCH (08:56)
[2016-08-11] MEDS: DOCUSATE SODIUM 100 MG CAP PO SCH ×2 (08:56→20:57)
[2016-08-11] MEDS: CHOLECALCIFEROL 1000 INTER.UNIT TAB PO SCH ×2 (08:57→20:57)
[2016-08-11] MEDS: PANTOprazole SOD 40 MG TAB PO SCH (08:57)
--- NOTE | 2016-08-11 15:13 | Progress Note ---
Subjective Date of Service: Aug 11, 2016. Subjective Pt evaluation today including: conversation w/ patient, conversation w/ family , physical exam, chart review, lab review, review of studies, review of inpatient medication list Pain: no pain reported Voiding: no voiding problems Pt is seen and examined by me. Pt denies chest pain, SOB, but still feel very lightheaded and foggy sensation.Pt denies any syncopal episodes. Pt denies fever , SOB, abd pain, n/v/c/d, LE pain or swelling.Pt did not felt good after starting amio drip and drip was stop after 20min. Problem List Medical Problems: (1) Bradycardia Status: Acute (2) Near syncope Status: Acute (3) Precordial chest pain Status: Acute (4) Right-sided chest pain Status: Acute (5) Upper abdominal pain Status: Acute Review of Systems Cardiac: + problem reported (lightheaded) All Other Systems: Reviewed and Negative Medications Medications (Trade) Dose Ordered Sig/Kee Route Start Time Stop Time Status Last Admin Dose Admin Amiodarone HCL/ Dextrose 100 ml @ 600 mls/hr TODAY@0600 ONCE IV 08/11/16 06:00 08/11/16 06:09 DC 08/11/16 06:08 600 MLS/HR Amiodarone HCL/ Dextrose 200 ml @ 33.3 mls/hr Q6H1M IV 08/11/16 06:09 08/11/16 12:09 DC 08/11/16 06:09 33.3 MLS/HR Docusate Sodium (coLACE CAP) 100 mg BID PO 08/11/16 09:00 09/10/16 08:59 08/11/16 08:56 100 MG Objective Vital Signs Date Time Temp Pulse Resp B/P (MAP) Pulse Ox O2 Delivery O2 Flow Rate FiO2 08/11/16 12:18 36.6 57 16 127/62 (83) 99 Room Air 08/11/16 12:00 99 Room Air 08/11/16 08:00 96 Room Air 08/11/16 07:53 36.4 54 16 158/86 (110) 96 Room Air 08/11/16 04:35 36.5 62 17 135/67 (89) 96 Room Air 08/11/16 04:00 Room Air 08/11/16 00:07 36.7 52 17 133/76 (95) 97 Room Air 08/10/16 23:59 Room Air 08/10/16 20:00 Room Air 08/10/16 19:15 36.7 66 22 138/76 (96) 97 Room Air 08/10/16 16:00 98 Room Air 08/10/16 15:50 36.7 57 16 155/97 (116) 97 Room Air Physical Exam General Appearance: no apparent distress Neck: supple, no adenopathy, no JVD Respiratory/Chest: lungs clear, normal breath sounds, no respiratory distress, no accessory muscle use Cardiovascular: regular rate, rhythm, no edema, no gallop, no JVD, no murmur Abdomen: normal bowel sounds, non tender, soft, no organomegaly Neurologic/Psychiatric: drum tender II-XII nml as tested, alert, normal mood/affect, oriented x 3 Skin: no rash Lymphatic: no adenopathy Laboratory Results Last Resulted CBC 08/09/16 06:20 Red Blood Count 4.37, Mean Corpuscular Volume 97.7, Mean Corpuscular Hemoglobin 33.0, Mean Corpuscular Hemoglobin Concent 33.7, Mean Platelet Volume 11.1, Neutrophils (%) (Auto) 38.0, Lymphocytes (%) (Auto) 43.2, Monocytes (%) (Auto) 11.3, Eosinophils (%) (Auto) 6.9, Basophils (%) (Auto) 0.6, Neutrophils # (Auto ) 2.03, Lymphocytes # (Auto) 2.30, Monocytes # (Auto) 0.60, Eosinophils # (Auto ) 0.37, Basophils # (Auto) 0.03 Last Resulted BMP 08/09/16 06:20 Assessment and Plan Near syncope/bradycardia/ventricular bigeminy--the patient admitted to the telemetry unit for rhythm monitoring. Metoprolol started 08/08, however PVCs/bigeminy have persisted with ongoing sx as well, flecainide started 08/09, however pt feeling unwell with this with ongoing PVCs/bigeminy Cards will give no meds overnight and start IV amio tomorrow-did not tolerated Iv amiodarone. May need to pursue ablation. TSH WNL Trop neg Recent observation admission with stress test essentially WNL Hypothyroidism-- continue levothyroxine 88 alternating 75 g daily. GERD--change omeprazole to pantoprazole per hospital formulary. Hypercholesterolemia--continue simvastatin 5 mg by mouth at bedtime. Continued [facility] stay due to: home environment unsafe for pt Discharge planning: uncertain
[2016-08-11] MEDS ORDERED: AMIODARONE 200 MG TAB PO ONE (15:30)
--- NOTE | 2016-08-11 15:52 | CARDIOLOGY PROGRESS NOTE ---
DATE: 08/11/2016 DATE: 08/11/2016. SUBJECTIVE: This morning Mrs. Velazquez claims to be feeling well. This morning during her amiodarone infusion she began to experience what she describes as anxiety. This was a sense of jitteriness and some mild gastrointestinal complaints. Her infusion was stopped and over the course of an hour or so her symptoms gradually resolved. At the time of the interview, she claims to be feeling well. She states that her breathing is normal. She is not overtly aware of any palpitations. She has not experienced significant dizziness. PHYSICAL EXAMINATION: GENERAL: She was alert and oriented, mood and affect appeared normal. She answered all questions appropriately. VITAL SIGNS: Include blood pressure of 161/67 with a pulse of 71. LUNGS: Auscultation of her lungs revealed them to be clear bilaterally. CARDIAC EXAMINATION: Revealed her to be in a slow rhythm with some ectopy. Evaluation of her telemetry revealed primarily ventricular bigeminy. ASSESSMENT AND PLAN: Ventricular bigeminy: The patient did not seem to have much efficacy with flecainide. She was started on amiodarone infusion this morning but developed some diffuse symptoms. It is not clear if this was related directly to the medication or simply standard episode of anxiety which she experiences on occasion. Her symptoms have resolved. I think she has not had an adequate trial of amiodarone for suppression of her PVCs. At this point, we will attempt oral therapy and monitor her on telemetry. She is otherwise feeling well and in the absence of improvement amiodarone could be continued on an outpatient basis to see if the efficacy improves over time. Alternatively, the patient could be sent home with arrangements for catheter based therapy at our institution or another. At this point, we will reassess the patient in the morning after she receives additional dose of amiodarone.
[2016-08-11] MEDS: AMIODARONE 200 MG TAB PO SCH (20:57)
[2016-08-11] MEDS: SIMVASTATIN 5 MG TAB PO SCH (20:57)
[2016-08-12] VITALS (9 sets, daily range): BP systolic 120–158; BP diastolic 65–89; PULSE 56–69; TEMP 36.4–36.5; O2SAT 95–98
[2016-08-12] MEDS: LEVOTHYROXINE 75 MCG TAB PO SCH (05:44)
[2016-08-12] MEDS: ASPIRIN 81 MG ECTAB PO SCH (07:41)
[2016-08-12] MEDS: CHOLECALCIFEROL 1000 INTER.UNIT TAB PO SCH ×2 (07:41→20:49)
[2016-08-12] MEDS: DOCUSATE SODIUM 100 MG CAP PO SCH ×2 (07:41→20:48)
[2016-08-12] MEDS: PANTOprazole SOD 40 MG TAB PO SCH (07:41)
[2016-08-12] MEDS: MULTIVITAMIN TAB PO SCH (07:42)
[2016-08-12] MEDS: AMIODARONE 200 MG TAB PO SCH ×2 (07:42→20:50)
--- NOTE | 2016-08-12 13:18 | Progress Note ---
Subjective Date of Service: Aug 12, 2016. Subjective Pt evaluation today including: conversation w/ patient, physical exam, chart review, lab review, review of inpatient medication list Pain: no pain PO Intake: good Voiding: no voiding problems, no incontinence pt tolerated the oral amiodarone doses with out any side effects, as she experienced with IV amiodarone,perhaps anxiety and excessive search of literature at internet.Pt denies any chest discomfort today, 1 episode of palpitation, which lasted seconds. Problem List Medical Problems: (1) Bradycardia Status: Acute (2) Near syncope Status: Acute (3) Precordial chest pain Status: Acute (4) Right-sided chest pain Status: Acute (5) Upper abdominal pain Status: Acute Review of Systems All Other Systems: Reviewed and Negative Medications Medications (Trade) Dose Ordered Sig/Kee Route Start Time Stop Time Status Last Admin Dose Admin Amiodarone HCl (Cordarone Tab) 400 mg BID PO 08/11/16 21:00 09/10/16 20:59 08/12/16 07:42 400 MG Amiodarone HCl (Cordarone Tab) 200 mg NOW ONCE PO 08/11/16 15:30 08/11/16 15:37 DC 08/11/16 16:54 200 MG Objective Vital Signs Date Time Temp Pulse Resp B/P (MAP) Pulse Ox O2 Delivery O2 Flow Rate FiO2 08/12/16 12:02 36.4 63 16 120/65 (83) 97 Room Air 08/12/16 08:17 36.4 69 16 122/68 (86) 97 Room Air 08/12/16 08:00 97 Room Air 08/12/16 04:00 Room Air 08/12/16 04:00 36.4 56 17 129/66 (87) 96 Room Air 08/12/16 00:00 36.5 60 17 158/89 (112) 95 Room Air 08/11/16 23:59 Room Air 08/11/16 20:00 Room Air 08/11/16 19:33 36.5 71 16 145/70 (95) 99 Room Air 08/11/16 16:00 100 Room Air 08/11/16 15:19 36.6 71 16 161/67 (98) 100 Room Air Physical Exam General Appearance: no apparent distress Neck: supple, no adenopathy Respiratory/Chest: lungs clear, normal breath sounds Cardiovascular: regular rate, rhythm, no edema, no murmur Abdomen: normal bowel sounds, soft Neurologic/Psychiatric: alert, normal mood/affect, oriented x 3 Skin: no rash Laboratory Results Last Resulted CBC 08/09/16 06:20 Red Blood Count 4.37, Mean Corpuscular Volume 97.7, Mean Corpuscular Hemoglobin 33.0, Mean Corpuscular Hemoglobin Concent 33.7, Mean Platelet Volume 11.1, Neutrophils (%) (Auto) 38.0, Lymphocytes (%) (Auto) 43.2, Monocytes (%) (Auto) 11.3, Eosinophils (%) (Auto) 6.9, Basophils (%) (Auto) 0.6, Neutrophils # (Auto ) 2.03, Lymphocytes # (Auto) 2.30, Monocytes # (Auto) 0.60, Eosinophils # (Auto ) 0.37, Basophils # (Auto) 0.03 Last Resulted BMP 08/09/16 06:20 Assessment and Plan Near syncope/bradycardia/ventricular bigeminy--the patient admitted to the telemetry unit for rhythm monitoring. Metoprolol started 08/08, however PVCs/bigeminy have persisted with ongoing sx as well, flecainide started 08/09, however pt feeling unwell with this with ongoing PVCs/bigeminy Cards will give no meds overnight and start IV amio tomorrow-did not tolerated Iv amiodarone. cardio think she did not have a fair chance of antiarrhythmic possible secondary to her anxiety, restarted on oral amiodarone and currently tolerating well. If fail than ablation- otherwise potential discharge home on oral amiodarone. TSH WNL Trop neg Recent observation admission with stress test essentially WNL Hypothyroidism-- continue levothyroxine 88 alternating 75 g daily. GERD--change omeprazole to pantoprazole per hospital formulary. Hypercholesterolemia--continue simvastatin 5 mg by mouth at bedtime. Continued [facility] stay due to: other Discharge planning: uncertain
--- NOTE | 2016-08-12 14:17 | CARDIOLOGY PROGRESS NOTE ---
DATE: 08/12/2016 This afternoon, the patient claims to be feeling quite well. She has been ambulatory around the room and overall feels good. She states that her energy level has been good. She has had minimal symptoms of lightheadedness or dizziness. She is not aware of any significant palpitations currently. PHYSICAL EXAMINATION: GENERAL: She was alert and oriented, mood and affect appeared normal. She answered all questions appropriately. CURRENT VITAL SIGNS: Include blood pressure of 120/65 with a pulse of 63. LUNGS: Auscultation of her lungs reveal them to be clear. She had good air movement without rales, wheezes or rhonchi. CARDIAC EXAMINATION: Revealed her to be in a regular rhythm with frequent ectopy. Evaluation of the patient's telemetry reveals persistent and frequent ventricular ectopy with occasional couplets or triplets. She has very few periods without significant ventricular ectopy. ASSESSMENT AND PLAN: Frequent premature ventricular contractions and ventricular bigeminy: I had discussion with the patient regarding treatment options. She is feeling quite well and it may take some time for us to see the full effect of her amiodarone. I offered her the opportunity to continue this therapy on an outpatient basis, however she declined. She states that her family numbers are concerned about her going home prior to resolution of this problem. I think it may take several days for us to see any notable reduction in her ectopy even with amiodarone therapy. I think going home would be a reasonable course with outpatient monitoring to see if there is any effect of the antiarrhythmic. In the absence of effect, a good alternative may be an attempt at catheter based therapy. We discussed this option today. She will have the opportunity to discuss this again tomorrow and she is requesting to stay overnight.
[2016-08-12] MEDS ORDERED: NURSING VERBAL MED ORDER ONE (17:30)
[2016-08-12] MEDS ORDERED: POLYETHYLENE (MIRALAX) 17 GM PACK PO ONE (17:45)
[2016-08-12] MEDS: SIMVASTATIN 5 MG TAB PO SCH (20:49)
[2016-08-13] VITALS: BP 149/89; PULSE 72; TEMP 36.5; O2SAT 97
[2016-08-13 04:17] VITALS: BP 124/68; PULSE 58; TEMP 36.5; O2SAT 93
[2016-08-13] MEDS: LEVOTHYROXINE 88 MCG TAB PO SCH (05:52)
[2016-08-13] MEDS: ASPIRIN 81 MG ECTAB PO SCH (08:00)
[2016-08-13] MEDS: AMIODARONE 200 MG TAB PO SCH (08:01)
[2016-08-13] MEDS: MULTIVITAMIN TAB PO SCH (08:01)
[2016-08-13] MEDS: CHOLECALCIFEROL 1000 INTER.UNIT TAB PO SCH (08:01)
[2016-08-13] MEDS: DOCUSATE SODIUM 100 MG CAP PO SCH (08:01)
[2016-08-13] MEDS: PANTOprazole SOD 40 MG TAB PO SCH (08:01)
[2016-08-13 08:02] VITALS: BP 151/64; PULSE 74; TEMP 36.7; O2SAT 95
--- NOTE | 2016-08-13 09:13 | Cardiology Follow-Up ---
Subjective Date of Service: Aug 13, 2016. Pt evaluation today including: conversation w/ patient, physical exam, lab review, review of studies, review of inpatient medication list History of Present Illness This is a very pleasant 76-year-old woman who presents with a slow pulse rate and intermittent lightheadedness and presyncope. Although only recently diagnosed her symptoms of lightheadedness and presyncope and fatigue go back probably 3-4 months according to her and her daughter, more recently when she felt that way she checked her heart rate with a blood pressure cuff and her blood pressure was elevated but her heart rate was often in the 30s. Ultimately she saw her marketing sales consultant who noted that her pulse rate was in the 30s and she was sent here, here she has been identified as having frequent premature ventricular beats and runs of ventricular bigeminy resulting in a slow pulse. She also has a history of palpitations many years ago (probably 15) at which time she was on atenolol, she tells me that was a very rapid heart rate and sounds as though was not this type of arrhythmia. She also describes chest discomfort, she was hospitalized recently for that, cardiac enzymes were negative, there were no electrocardiographic changes of ischemia and a dobutamine echo was negative for ischemia. On review of the dobutamine echo she did have very frequent premature ventricular beats at baseline, with a high heart rate on high doses of dobutamine the PVCs essentially resolved. The chest discomfort is of recent onset, and is not necessarily associated with the lightheaded or "foggy" sensation she has, when she had the chest discomfort at night it was a sharp discomfort lasting a few seconds and she would get up and walk around with resolution of the discomfort. It does not sound anginal. She notes that her lung capacity is reduced and she does see an marketing sales consultant for seasonal allergies, she evidently has a history of asthma but says that currently she is not having any evidence of asthma. She has never had a severe asthmatic attack. I started her on metoprolol succinate 100 mg daily, that seemed to have virtually no effect. I therefore stopped the metoprolol and started her on flecainide 100 mg twice a day around noon on 08/09/2016. That also seems to have had no effect, although she had been tolerating those medications well. I therefore with held antiarrhythmics for 24 hours and then started amiodarone intravenously on the morning of 08/11/2016. She evidently felt "terrible" on that medication quite quickly, therefore its effect cannot be measured. She was started on oral amiodarone 400 mg twice a day on 08/11/2016 and remains on that. She seems to have no side effects on oral amiodarone, but that will take some time to achieve a measurable results. She is not having much difficulty with palpitations and has not been having presyncopal spells. Social History Smoking Status: Never Smoker History of Alcohol Use: No Review of Systems Respiratory: No cough, No wheezing, No shortness of breath, No dyspnea on exertion Cardiac: + problem reported (lightheaded) Medications Cardiovascular: Item Value Date Time Amiodarone HCl 400 mg 08/11/162099 (Cordarone Tab) BID/PO 08/13/16 08 Aspirin 81 mg 08/08/16 0900 (Ecotrin Tab) DAILY/PO 08/13/16 08 Simvastatin 5 mg 08/07/162099 (Zocor Tab) HS/PO 08/12/162048 Objective Vital Signs Past 12 Hours Date Time Temp Pulse Resp B/P (MAP) Pulse Ox O2 Delivery O2 Flow Rate FiO2 08/13/16 08:02 36.7 74 18 151/64 (93) 95 Room Air 08/13/16 08:00 Room Air 08/13/16 04:17 36.5 58 124/68 (86) 93 Room Air 08/13/16 04:00 Room Air 08/13/16 00:00 36.5 72 17 149/89 (109) 97 Room Air 08/12/16 23:59 Room Air Last Recorded Weight-Kilograms: 117.400 Physical Exam Constitutional: General Apperance: heathly-appearing Level of Distress: NAD Lungs: Respiratory effort: no dyspnea, good air movement Auscultation: breath sounds normal, no wheezing Cardiovascular: Heart Auscultation: RRR (With premature beats), no murmurs, no rubs, no gallops Peripheral Pulses: Bruits: none appreciated Extremities: no edema Data Telemetry reviewed: Sinus rhythm with very frequent premature ventricular beats Assessment and Plan #1. Lightheaded and "foggy" sensation: This appears to have been due to a low effective heart rate, however her actual heart rate (including PVCs) does not appear to be low. She often has ventricular bigeminy resulting in a pulse deficit and therefore has a low effective heart rate which would be consistent with her symptoms. This has been present for a number of months, and is possibly progressive. Elimination of her premature ventricular beats may eliminate these symptoms. #2. Frequent premature ventricular beats: On electrocardiography these are likely from the right ventricular outflow tract, they appear to be isolated (I have not seen any ventricular tachycardia) and they may respond to standard medical therapy. I tried beta blockade to start, however at a reasonable dose that seemed to have very little effect. I also tried flecainide at a reasonable dose and that also had no effect. I would like to try amiodarone, but she did not tolerate intravenous and has been on oral amiodarone for 2 days. Unfortunately this will take some time to show an effect, perhaps weeks to a month, so it is too early to tell whether we'll be effective. I discussed other options including ablation with her again, at this point she is willing to try amiodarone to see if that works before moving onto ablation. I think it is safe for her to go home. I would recommend sending her home on 400 mg twice a day for a total of 5 days, at which time I will reduce it to 600 mg daily (which can be divided or once) for 2 weeks and then down to 400 mg daily. I will arrange a 24-hour Holter monitor after around one month of therapy and see her in the office subsequently. Based on her echocardiogram she does not have right ventricular abnormalities although right ventricular dysplasia is difficult to diagnose by echo criteria. #3. Hypertension: Some of her hypertension is probably due to a low heart rate and elevated pulse pressure, prior to the last several months she does not recall having significant hypertension although she was treated for it with an TERI inhibitor (currently on hold). I would treat her premature beats and see whether that helps her hypertension as well. Her blood pressure has been somewhat variable but not very high here, it may be safer to send her home without her antihypertensives over the short run, until we have the PVCs under control. Thank you for allowing me to participate in her care.
--- NOTE | 2016-08-13 11:22 | Discharge Instructions ---
Discharge Instructions Date of Service Aug 13, 2016. Admission Reason for Admission: Bradycardia, Near Syncope Discharge Discharge Diagnosis / Problem: Ventricular Bigeminy Discharge Goals Goal(s): Decrease discomfort, Improve function, Increase independence, Improve disease control Activity Recommendations Activity Limitations: resume your previous activity Lifting Limitations: no more than 25 pounds, gradually increase as tolerated Exercise/Sports Limitations: rest today, gradually increase as tolerated May Resume Sexual Activity: when tolerated Shower/Bathe: no limitations Driving or Machine Use: no limitations . Instructions / Follow-Up Instructions / Follow-Up You were admitted to [facility] with ventricular bigeminy and underlying bradycardia with some extra beats. During your stay here you were treated with oral amiodarone for rate control. Cardiology was consulted and decided upon an outpatient regimen including: Continue taking 400 mg twice a day for a total of 5 days, then reduce to 600 mg once daily for 2 weeks and then down to 400 mg daily. *Your prescription will be as follows: Take 2 tabs twice daily x 5 days, then take 1 and 1/2 tablets once daily x 2 weeks, then take 2 tablets once daily Cardiology has arranged for a 24-hour Holter monitor after approximately 1 month of therapy A follow up appointment has been requested for you. Imaging studies which were completed include Echocardiogram, and were within normal limits. Please continue taking all other medication as prescribed. Follow up with your Primary Care Provider within 1 week. Follow up with your Cardiology within 4 weeks. Current Hospital Diet Patient's current hospital diet: AHA Diet (Heart Healthy), Low Fat Diet Discharge Diet Recommended Diet: AHA Diet (Heart Healthy) Pending Studies Studies pending at discharge: no Laboratory Results Hemoglobin A1c Test 07/27/16 07:58 Range/Units Estimated Average Glucose 114 mg/dl Hemoglobin A1c 5.6 4.5-5.6 % Lipid Panel Test 07/27/16 07:58 Range/Units Triglycerides Level 58 0-150 mg/dl Cholesterol Level 173 0-200 mg/dl HDL Cholesterol 73 mg/dl Cholesterol/HDL Ratio 2.4 LDL Cholesterol, Calculated 88 mg/dl Medical Emergencies . Who to Call and When: Medical Emergencies: If at any time you feel your situation is an emergency, please call 911 immediately. . Non-Emergent Contact Non-Emergency issues call your: Primary Care Provider, [employer] Cell [employer] As[employer]er Call Non-Emergent contact if: you have a fever, temperature is above 100.5, you have any medication questions . Past History Medical & Surgical History: (1) Ventricular bigeminy (2) Bradycardia (3) Benign hypertension (4) Hyperlipidemia . "Provider Documentation" section prepared by Audrey Carreon. . VTE Core Measure Inpt VTE Proph given/why not?: Juan Stockings, SCD's
[2016-08-13] MEDS ORDERED: BISA10SU38 PR (11:31)
[2016-08-13] MEDS ORDERED: CLC100 PO (11:31)
[2016-08-13] MEDS ORDERED: CRD200 PO ×2 (11:31→15:17)
[2016-08-13 11:38] VITALS: BP 151/64; PULSE 74; TEMP 36.7; O2SAT 95
[2016-08-13 11:55] VITALS: BP 152/78; PULSE 74; TEMP 36.6; O2SAT 98
--- NOTE | 2016-08-13 14:04 | Discharge Summary ---
Discharge Summary Date of Service Aug 13, 2016. (Gwen Carreon PA-C) Discharge Summary Admission Date: Aug 07, 2016 at 17:44 Discharge Date: Aug 13, 2016 Discharge Disposition: Home Principal Diagnosis: Ventricular bigeminy Immunizations: Have You Had Influenza Vaccine: Yes Influenza Vaccine Date: Nov 13, 2014 History of Tetanus Vaccine?: Unknown Tetanus Immunization Date: Jun 29, 2009 History of Pneumococcal: Yes Pneumococcal Date: Aug 26, 2014 History of Hepatitis B Vaccine: Unknown Procedures: SINGLE VIEW CHEST CLINICAL HISTORY: Atypical chest pain. FINDINGS: An AP, portable, upright chest radiograph is compared to chest x-ray and chest CT dated 07/26/2016. The examination is degraded by portable technique, large body habitus, and patient rotation. The heart is enlarged. The pulmonary vascular is noncongested. Calcified mediastinal and hilar lymph nodes are again noted. Chronic interstitial thickening is similar to previous. There is no airspace consolidation, pleural effusion, or pneumothorax. The skeletal structures are osteopenic. The bony thorax is grossly intact. IMPRESSION: Cardiomegaly with no acute cardiopulmonary abnormality. There has been no significant change from recent prior studies. Electronically signed by: Salomon Jose M.D. 08/07/2016 4:52 PM Dictated Date/Time: 08/07/2016 4:50 PM The status of this report is Signed. Consultations: Cardiology (Gwen Carreon PA-C) Medication Reconciliation New Medications: Bisacodyl (Dulcolax) 10 Mg Sup 1 SUPP SD DAILY PRN for Constipation for 5 Days, #5 SUP Amiodarone HCl (Amiodarone HCl) 200 Mg Tab 400 MG PO UD for 30 Days, #120 TAB Take 2 tabs twice daily x 5 days, then take 1 and 1/2 tablets once daily x 2 weeks, then take 2 tablets once daily Docusate Sodium (Docusate Sodium) 100 Mg Cap 100 MG PO BID for 30 Days, #60 CAP Continued Medications: Acetaminophen (Tylenol) 500 Mg Tab 500 MG PO UD PRN for Pain Aspirin (Aspirin 81) 81 Mg Tab 81 MG PO DAILY Cholecalciferol (Vitamin D 1000 Unit) 1,000 Unit Cap 1000 INTER.UNIT PO BID, CAP Fish Oil ([place]-3) 1 Ea Cap 1200 MG PO QAM, 0 Refills Flaxseed (Linseed) (Flax Oil) 1 Oil Oil 1200 MG PO HS Gabapentin (Gabapentin) 300 Mg Cap 300 MG PO TID, #90 Ibuprofen (Advil) 200 Mg Tab 200 MG PO DIRECTED PRN for Pain, TAB Levothyroxine Sodium (Synthroid) 88 Mcg Tab 88 MCG PO Q2D, #14 TAB Levothyroxine Sodium (Synthroid) 75 Mcg Tab 75 MCG PO Q2D for 30 Days, TAB alternating with th 88 mcg dose on the other days Lisinopril (Prinivil) 5 Mg Tab 5 MG PO QAM, TAB Multivitamins (Daily Darnell) 1 Tab Tab 2 TAB PO DAILY Omeprazole (Prilosec) 40 Mg Cap 40 MG PO DAILY, #30 Simvastatin (Zocor) 5 Mg Tab 5 MG PO HS, TAB [Iron] () 65 MG PO DAILY Discharge Exam The patient was seen and examined this morning. Pt reports doing well today, and was just seen by Dr. Villeda who said she would be able to go home, which she is happy about. She denies any acute complaints including chest pain, shortness of breath, dyspnea at rest or on exertion. She denies feeling lightheaded or dizzy at all. ROS: Constitutional: No fever, sweats or chills Eyes: No diplopia, no worsening or blurred vision ENT: normal hearing, no trouble swallowing Respiratory: No cough, sputum, dyspnea at rest or on exertion Cardiovascular: No chest pain, tightness or palpitations Abdomen: No pain, nausea, vomiting, diarrhea or constipation Musculoskeletal: No joint pain, calf pain, swelling Neurologic: No weakness, numbness/tingling, or balance problems Psychiatric: No anxiety or depression Skin: No rash or itch PE: General: awake, alert, no apparent distress, sitting up in bedside chair Head: Normocephalic, atraumatic ENT: PERRL, EOMI, no pharyngeal exudate, mucous membranes moist Chest: Clear to auscultation, on room air, no adventitious breath sounds Cardiac: + Bradycardic, no murmur, no JVD, normal peripheral pulses, good capillary refill Abdominal: NABS x 4 quadrants, soft, nontender to palpation, no rebound, guarding or tenderness Extremities: Normal inspection, no peripheral edema or erythema, calfs nontender to palpation Psych: Normal mood and affect Neuro: AAO x 3, strength intact bilaterally and related 5/5, no motor deficits, speech is clear, no peripheral sensory deficits (Gwen Carreon PA-C) Hospital Course H&P per Josiah Granados M.D. History of Present Illness Source: patient The patient is a 76-year-old female who reports intermittent symptoms of fogginess of thinking over the past 4 weeks along with shortness of breath and left-sided chest discomfort. She'll be admitted to the hospital from July 26 to July 27, and had a negative cardiac workup including a dobutamine stress echocardiogram. Today the patient became very lightheaded while standing in her kitchen, but did not pass out completely, and was able to sit down and gather herself. She also reports that over the past 2 weeks that her brain fog has been worsening, she is also noted her blood pressure and heart rate had gone down very low. Physical Exam Vital Signs Date Time Temp Pulse Resp B/P (MAP) Pulse Ox O2 Delivery O2 Flow Rate FiO2 08/07/16 19:25 67 18 156/85 95 08/07/16 19:17 67 18 156/85 95 Room Air 08/07/16 18:17 64 18 146/91 97 Room Air 08/07/16 17:30 94 Room Air 08/07/16 17:30 94 Room Air 08/07/16 16:39 76 08/07/16 16:24 36.3 60 18 146/86 98 Room Air The patient is awake, well-developed and adequately nourished, alert and oriented 3, normocephalic and atraumatic, lying in bed and in no acute distress. HEENT--PERRL, EOMI, mucous membranes and oropharynx dry. Neck--supple, no JVD or bruits, thyroid normal, trachea midline, no adenopathy. Heart--bradycardic, frequent ectopic beats, no murmurs, rubs or gallops. Lungs--clear bilaterally with good air movement, no respiratory distress, no accessory muscle use. Abdomen--normal bowel sounds and soft, nontender and nondistended, no hernias or masses, no organomegaly. Extremities--no cyanosis, clubbing or edema. There are good distal pulses b/l. Dermatologic--normal skin turgor, normal color, warm and dry, no abnormal lymph nodes, no rash. Neurologic--cranial nerves II through XII grossly intact, motor and sensory examination normal. Rheumatologic--normal range of motion, nontender, muscles and joints. Psychiatric--normal affect. Hospital course: Near syncope/bradycardia/ventricular bigeminy--the patient admitted to the telemetry unit for rhythm monitoring. - Metoprolol started 08/08, however PVCs/bigeminy have persisted with ongoing sx as well, flecainide started 08/09, however pt feeling unwell with this with ongoing PVCs/bigeminy. - Cardiology started IV amiodarone however the pt did not tolerated it. Cardiology thought she did not have a fair chance of antiarrhythmic, possibly secondary to her anxiety and researching medications up on the internet. She was restarted on oral amiodarone and tolerated it well. \ - Pt should continue taking 400 mg twice a day for a total of 5 days, then reduce to 600 mg once daily for 2 weeks and then down to 400 mg daily. Discharge instructions as follows: Take 2 tabs twice daily x 5 days, then take 1 and 1/2 tablets once daily x 2 weeks, then take 2 tablets once daily Cardiology has arranged for a 24-hour Holter monitor after approximately 1 month of therapy A follow up appointment has been requested for you. Imaging studies which were completed include Echocardiogram, and were within normal limits. - TSH WNL - Trop neg - Recent observation admission with stress test essentially WNL Hypothyroidism -stable- continue levothyroxine 88 alternating 75 g daily. GERD -change omeprazole to pantoprazole per hospital formulary. Hypercholesterolemia -continue simvastatin 5 mg by mouth at bedtime. DVT Prophylaxis: Teds, SCDs CODE STATUS: Full code Physician: Patient from home, discharged today. Total Time Spent: Greater than 30 minutes This includes examination of the patient, discharge planning, medication reconciliation, and communication with other providers. (Gwen Carreon, RHIANNON) YAMIL Physician Supervision Note: I interviewed and examined the patient. Discussed with Audrey Carreon PAC and agree with findings and plan as documented in the note. Any exceptions or clarifications are listed here: None PT is pleased with plan set forth by Dr Dove and will follow up after oral amiodarone loading dose vitals still show bigeminy bp stable close Electrophysiology follow up Documented By: Bora Phillip (Bora Phillip M.D.) Discharge Instructions Please refer to the electronic Patient Visit Report (Discharge Instructions) for additional information. (Gwen Carreon PA-C) Follow-Up Follow up with your Primary Care Provider within 1 week. Follow up with Cardiology within 4 weeks. (Gwen Carreon PA-C) Additional Copies To Aisha Matthew,
[2016-08-22] MEDS ORDERED: ASPI-435 PO (00:54)
[2016-08-22] MEDS ORDERED: MULT-589 PO (00:55)
[2016-08-22] MEDS ORDERED: IRON PO (05:34)
[2016-08-22] MEDS ORDERED: SIMV5TAB2 PO (09:51)
[2016-08-22] MEDS ORDERED: FLAXOIL2 PO (09:51)
[2016-08-22] MEDS ORDERED: OMEG10007 PO (14:56)
== END 2016-08-13 15:30 | disposition home or self-care (01) | DRG 312 ==
LOC: C.EDB 16:22 → C.MSICU 17:44 → ENRESERV 18:37 → CANRESERV 08-09 12:09 → CANBEDREQ 08-09 14:42 → ENRESERV 08-09 15:28 → C.2T 08-09 16:19
PROVIDERS: ADMIT Hospitalist; ATTEND Internal Medicine
DX: R55 Syncope and collapse (principal); R00.8 Other abnormalities of heart beat; R00.1 Bradycardia, unspecified; E03.9 Hypothyroidism, unspecified; K21.9 Gastro-esophageal reflux disease without esophagitis; K44.9 Diaphragmatic hernia without obstruction or gangrene; I10 Essential (primary) hypertension; E78.00 Pure hypercholesterolemia, unspecified; R07.9 Chest pain, unspecified; I49.3 Ventricular premature depolarization; E78.5 Hyperlipidemia, unspecified; M54.40 Lumbago with sciatica, unspecified side; M16.11 Unilateral primary osteoarthritis, right hip; Z96.659 Presence of unspecified artificial knee joint; Z86.711 Personal history of pulmonary embolism; Z86.718 Personal history of other venous thrombosis and embolism; Z79.82 Long term (current) use of aspirin; Z79.899 Other long term (current) drug therapy; Z79.1 Long term (current) use of non-steroidal anti-inflammatories (NSAID)

== ENCOUNTER 2016-08-22 15:29 | Observation (INO) | payer OTHER, MEDICARE ==
[~2016-08-22] VITALS: Ht 177.8 cm; Wt 109.8 kg
[~2016-08-22 15:29] MED LIST changes: +ASPI-435 PO; +CLC100 PO; +CRD200 PO; +FLAXOIL2 PO; +GABA1CAP4 PO; +IRON PO; +MULT-589 PO; +OMEG10007 PO; +OMEP40CA41 PO; +SIMV5TAB2 PO
[2016-08-22] MEDS ORDERED: SODIUM CHLORIDE 0.9% 1000ML 1,000 ML IV STA (15:42)
--- NOTE | 2016-08-22 16:05 | DIAGNOSTIC IMAGING REPORT ---
CHEST ONE VIEW PORTABLE CLINICAL HISTORY: Weakness, syncope COMPARISON STUDY: 08/07/2016 FINDINGS: The cardiac and mediastinal contours remain stable. There is stable aortic tortuosity/ectasia. There is no failure. There is no focal pulmonary consolidation. There are no pleural effusions.[ IMPRESSION: No active disease in the chest. Electronically signed by: Victoriano Gillis M.D. 08/22/2016 4:03 PM Dictated Date/Time: 08/22/2016 4:03 PM
[2016-08-22 16:08] LABS: BASO % 0.2 %; BASO ABS # 0.01 K/uL (0-0.2); COMPLETE YES; EOS % 4.4 %; HEMATOCRIT 41.6 % (37-47); IG% 0.2 %; LYMPH % 30.5 %; LYMPH ABS # 1.46 K/uL (1.2-3.4); MEAN CELL VOLUME 96.5 fL (80-100); MEAN CORPUSCULAR HEMOGLOBIN 32.7 pg (25-34); MEAN CORPUSCULAR HGB CONC 33.9 g/dl (32-36); MEAN PLATELET VOLUME 10.6 fL (7.4-10.4); MONO % 9.4 %; NEUT % 55.3 %; PLATELET COUNT 199 K/uL (130-400); RED BLOOD COUNT 4.31 M/uL (4.2-5.4); WHITE BLOOD COUNT 4.78 K/uL (4.8-10.8)
[2016-08-22 16:20] LABS: PROTHROMBIN TIME (PATIENT) 10.7 SECONDS (9.0-12.0)
[2016-08-22 16:26] LABS: ALT/SGPT 31 U/L (12-78); BLOOD UREA NITROGEN 17 mg/dl (7-18); BUN/CREATININE RATIO 18.1 (10-20); CALCIUM 8.5 mg/dl (8.5-10.1); CARBON DIOXIDE 25 mmol/L (21-32); CHLORIDE 108 mmol/L (98-107); CREATININE 0.94 mg/dl (0.60-1.20); GLUCOSE 115 mg/dl (70-99); MAGNESIUM 2.2 mg/dl (1.8-2.4); POTASSIUM 3.9 mmol/L (3.5-5.1); SODIUM 141 mmol/L (136-145)
[2016-08-22 16:31] LABS: ISTAT CREATININE 0.9 mg/dl (0.6-1.3); ISTAT HEMOGLOBIN 13.6 g/dl (12.0-16.0); ISTAT IONIZED CALCIUM 1.2 mmol/l (1.12-1.32)
[2016-08-22 16:37] LABS: ALKALINE PHOSPHATASE 74 U/L (45-117); AST/SGOT 24 U/L (15-37); CKMB/CK RATIO 2.1 (0-3.0)
[2016-08-22] MEDS ORDERED: ALUMINUM/MAGNESIUM/SIMETH (MAALOX MAX) 30 ML UDC PO PRN (16:45)
[2016-08-22] MEDS ORDERED: MAGNESIUM HYDROXIDE SUSP 30 ML UDC PO PRN (16:45)
[2016-08-22] MEDS ORDERED: ACETAMINOPHEN 325 MG TAB PO PRN (16:45)
[2016-08-22] MEDS ORDERED: ONDANSETRON INJ 2 MG/ML 2 ML VIAL IV PRN (16:45)
[2016-08-22] MEDS ORDERED: POLYETHYLENE (MIRALAX) 17 GM PACK PO PRN (16:45)
[2016-08-22] MEDS ORDERED: AMIO200T4 PO (16:49)
[2016-08-22] MEDS ORDERED: OMEP40CA41 PO (16:52)
[2016-08-22] MEDS ORDERED: GABAPENTIN 300 MG CAP PO PRN (17:00)
[2016-08-22 17:36] LABS: LYME DISEASE AB IGG NEG (NEG); LYME DISEASE AB IGM NEG (NEG)
[2016-08-22 18:05] LABS: C-REACTIVE PROTEIN 0.41 mg/dl (0-0.29)
--- NOTE | 2016-08-22 18:21 | History and Physical ---
History & Physical Date & Time of Service: Aug 22, 2016 at 16:47 Chief Complaint: Syncope X 3 Primary Care Physician: Aisha Matthew DO History of Present Illness Source: patient 76F with a PMHx of HTN, HLD, hypothyroidism, bigeminal pulse who was recently discharged from [facility] for near syncope presents with another near syncopial event. She was sitting while watching tv when she felt that the room started to go black - she reported a tunneling of her vision. She denies losing consciousness. She called 911 then went upstairs to get changed for the ambulance. She has significant dyspnea trying to get up the stairs. Her son who she lives with was not at home during the time. This is the think near syncope event in the past two years. Her last near syncope was almost a month ago and was her last admission to [facility]. Upon discharge on her last admission she was given Amiodarone 400mg BID. She was unable to tolerate her Amiodarone 400mg BID so her salt operator decreased it to 300mg BID. Her son who she lives with reports that she has been feeling depressed during this time. Pt reports opposite symptoms including tremors, anxiety and inability to sleep at night . ROS: Denies chest pain, denies SOB normally, denies abdominal pain, denies diarrhea. +reports tunneling of vision and left sided headache starting today. SHx: Lives with son, daughter was present at bedside. 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 (7) Pulmonary embolism Status: Resolved (8) Right Hip DJD Status: Chronic Surgical Problems: (1) S/P knee replacement Status: Resolved Family History No significant family history Social History Smoking Status: Never Smoker Drug Use: none Marital Status: Housing status: lives with family Occupational Status: retired Immunizations History of Influenza Vaccine: Yes Influenza Vaccine Date: Nov 13, 2014 History of Tetanus Vaccine?: Unknown Tetanus Immunization Date: Jun 29, 2009 History of Pneumococcal: Yes Pneumococcal Date: Aug 26, 2014 History of Hepatitis B Vaccine: Unknown Multi-Drug Resistant Organisms History of MDRO: No Allergies Coded Allergies: Adhesives (Verified Allergy, Unknown, REDNESS FROM EKG PATCHES, 08/07/16) Codeine (Verified Allergy, Unknown, DOPEY, 08/07/16) Lorazepam (Verified Allergy, Unknown, NAUSEA, 08/07/16) Oxycodone (Verified Allergy, Unknown, NAUSEA AND VOMITING, 08/07/16) POLLEN (Verified Allergy, Unknown, EYES AND THROAT ITCHY, 08/07/16) Propoxyphene (Verified Allergy, Unknown, nausea, 08/07/16) N/V--NEARLY COMATOSE? Erythromycin (Verified Adverse Reaction, Unknown, NAUSEA, 08/07/16) Morphine (Verified Adverse Reaction, Unknown, HALLUCINATIONS, 08/07/16) Prednisone (Verified Adverse Reaction, Unknown, "High dose prednisone" -- extreme anxiety, 08/07/16) Tramadol (Verified Adverse Reaction, Unknown, "loopy", 08/07/16) Home Medications Scheduled Amiodarone Hcl (Cordarone), 300 MG PO BID Aspirin (Aspirin 81), 81 MG PO DAILY Cholecalciferol (Vitamin D 1000 Unit), 1,000 INTER.UNIT PO BID Docusate Sodium (Docusate Sodium), 100 MG PO BID Fish Oil ([place]-3), 1,200 MG PO QAM Flaxseed (Linseed) (Flax Oil), 1,200 MG PO HS Levothyroxine Sodium (Synthroid), 88 MCG PO Q2D Levothyroxine Sodium (Synthroid), 75 MCG PO Q2D Multivitamins (Daily Darnell), 2 TAB PO DAILY Omeprazole (Prilosec), 40 MG PO DAILY Simvastatin (Zocor), 5 MG PO HS [Iron], 65 MG PO DAILY Scheduled PRN Acetaminophen (Tylenol), 500 MG PO UD PRN for Pain Gabapentin (Gabapentin), 300 MG PO TID PRN for LEG PAIN Ibuprofen (Advil), 200 MG PO DIRECTED PRN for Pain Review of Systems Constitutional: No fever Respiratory: No cough, No sputum, No wheezing Cardiovascular: No chest pain Musculoskeletal: + joint pain (chronic left ankle pain) Genitourinary - Female: No dysuria Neurologic: No numbness/tingling Psychiatric: No depression symptoms Integumentary: No rash Physical Exam Vital Signs Date Time Temp Pulse Resp B/P (MAP) Pulse Ox O2 Delivery O2 Flow Rate FiO2 08/22/16 16:21 67 08/22/16 16:02 139/84 08/22/16 15:59 57 20 92 08/22/16 15:47 145/79 08/22/16 15:43 160/73 08/22/16 15:41 151/71 08/22/16 15:40 150/74 08/22/16 15:40 36.4 69 20 150/74 95 Room Air 67 151/71 81 160/73 08/22/16 15:35 160/72 08/22/16 15:29 36.4 64 20 160/72 95 Room Air 08/22/16 15:29 95 Room Air 08/22/16 15:29 95 Room Air General Appearance: WD/WN, no apparent distress Head: normocephalic, atraumatic Eyes: PERRL, EOMI Respiratory/Chest: chest non-tender, lungs clear, normal breath sounds, no respiratory distress, no accessory muscle use Cardiovascular: regular rate, rhythm, no gallop, no JVD, no murmur, normal peripheral pulses, + pertinent finding (1+ pitting edema in the LE bilaterally) Abdomen/GI: non tender, soft, no organomegaly, no pulsatile mass, normal rectal exam Back: no CVA tenderness Extremities/Musculoskelatal: no calf tenderness, normal range of motion Neurologic/Psych: alert, normal mood/affect, normal reflexes, oriented x 3 Diagnostics Laboratory Results Results Past 24 Hours Test 08/22/16 15:50 08/22/16 16:02 Range/Units White Blood Count 4.78 4.8-10.8 K/uL Red Blood Count 4.31 4.2-5.4 M/uL Hemoglobin 14.1 12.0-16.0 g/dL Hematocrit 41.6 37-47 % Mean Corpuscular Volume 96.5 80-100 fL Mean Corpuscular Hemoglobin 32.7 25-34 pg Mean Corpuscular Hemoglobin Concent 33.9 32-36 g/dl Platelet Count 199 130-400 K/uL Mean Platelet Volume 10.6 7.4-10.4 fL Neutrophils (%) (Auto) 55.3 % Lymphocytes (%) (Auto) 30.5 % Monocytes (%) (Auto) 9.4 % Eosinophils (%) (Auto) 4.4 % Basophils (%) (Auto) 0.2 % Neutrophils # (Auto) 2.64 1.4-6.5 K/uL Lymphocytes # (Auto) 1.46 1.2-3.4 K/uL Monocytes # (Auto) 0.45 0.11-0.59 K/uL Eosinophils # (Auto) 0.21 0-0.5 K/uL Basophils # (Auto) 0.01 0-0.2 K/uL RDW Standard Deviation 47.0 36.4-46.3 fL RDW Coefficient of Variation 13.4 11.5-14.5 % Immature Granulocyte % (Auto) 0.2 % Immature Granulocyte # (Auto) 0.01 0.00-0.02 K/uL Prothrombin Time 10.7 9.0-12.0 SECONDS Prothromb Time International Ratio 1.0 0.9-1.1 Activated Partial Thromboplast Time 25.0 21.0-31.0 SECONDS Partial Thromboplastin Ratio 1.0 Sodium Level 141 136-145 mmol/L Potassium Level 3.9 3.5-5.1 mmol/L Chloride Level 108 98-107 mmol/L Carbon Dioxide Level 25 21-32 mmol/L Anion Gap 8.0 19.0 16-25 mmol/L Blood Urea Nitrogen 17 7-18 mg/dl Creatinine 0.94 0.60-1.20 mg/dl Est Creatinine Clear Calc Drug Dose 68.4 ml/min Estimated GFR () 68.3 Estimated GFR (Non- 58.9 BUN/Creatinine Ratio 18.1 10-20 Random Glucose 115 70-99 mg/dl Calcium Level 8.5 8.5-10.1 mg/dl Magnesium Level 2.2 1.8-2.4 mg/dl Total Bilirubin 0.5 0.2-1 mg/dl Direct Bilirubin 0.2 0-0.2 mg/dl Aspartate Amino Transf (AST/SGOT) 24 15-37 U/L Alanine Aminotransferase (ALT/SGPT) 31 12-78 U/L Alkaline Phosphatase 74 45-117 U/L Total Creatine Kinase 106 26-192 U/L Creatine Kinase MB 2.2 0.5-3.6 ng/ml Creatine Kinase MB Ratio 2.1 0-3.0 Troponin I < 0.015 0-0.045 ng/ml Total Protein 6.9 6.4-8.2 gm/dl Albumin 3.4 3.4-5.0 gm/dl Thyroid Stimulating Hormone (TSH) 7.270 0.300-4.500 uIu/ml Bedside Hemoglobin 13.6 12.0-16.0 g/dl Bedside Hematocrit 40 37-47 % Bedside Sodium 140 135-144 mEq/L Bedside Potassium 3.9 3.3-5.0 mEq/L Bedside Chloride 102 101-112 mEq/L Bedside Total CO2 24 24-31 mEq/l Bedside Blood Urea Nitrogen 17 7-18 mg/dl Bedside Creatinine 0.9 0.6-1.3 mg/dl Bedside Glucose (other) 121 70-99 mg/dl Bedside Ionized Calcium (Inez) 1.20 1.12-1.32 mmol/l Diagnostic Radiology CHEST ONE VIEW PORTABLE CLINICAL HISTORY: Weakness, syncope COMPARISON STUDY: 08/07/2016 FINDINGS: The cardiac and mediastinal contours remain stable. There is stable aortic tortuosity/ectasia. There is no failure. There is no focal pulmonary consolidation. There are no pleural effusions.[ IMPRESSION: No active disease in the chest. EKG Sinus rhythm with frequent Premature ventricular complexes in a pattern of bigeminy Otherwise normal ECG When compared with ECG of 10-AUG-2016 11:13, QRS duration has decreased Resident Involvement: Resident Care Provided Care Provided: Adult [facility] Impression Assessment and Plan 76F with a PMHx of HTN, HLD, hypothyroidism, bigeminal pulse who was recently discharged from [facility] for near syncope presents with another near syncopial event. EKG shows bigeminal pulse. Pt is currently taking 300mg BID Amiodarone and reports side effects include tremors, anxiety, staying awake at night. Pt' s son is reporting pt has a new onset depressed affect on Amiodarone. CT head pending. Near Syncope, likely secondary to PVCs and frequent bigeminal pulses. - CT Head pending. Labs are grossly normal. - Monitor on Telemetry. - Because of tunneling of vision and left sided headache will get ESR and CRP. - Will get stat Troponin. Bigeminal Pulse - After talking with Dr. Christianson - we will hold the Amiodarone. - c/w Aspirin 81mg - Appreciate cardiology consult, may need Ablation as pt is experience significant side effects from Amiodarone.\\ - Tele. Hypothyroidism - Pt is reporting anxiety and tremors consistent with hyperthyroidism. Pt may also have euthyroid sick syndrome. - TSH is 7.3, will get free T3 and T4. - c/w Synthroid GERD - c/w PPI HLD - c/w statin Dispo: Tele, Observation, Reg Diet. DVT Proph: Lovenox 40mg Q24. Code: Full Code I personally and independently interviewed and examined the patient I reviewed labs and imaging I agree with above mentioned physical exam, History and ROS I discussed and formulated the assessment and plan with Mrs. Grider 76 / F with a PMHx of HTN, HLD, hypothyroidism and ventricular bigiminy, recently started on amiodarone. P/W recurrent near syncopial event. ROS aside from what is mentioned above, the rest of ROS is negative Physical exam; morbid obese, no distress, wet mucous membrane, normal air entry both lungs Assessment / plan: syncope likely cardiac arrythmia hold amiodarone salt operator consult supportive care likely will need a lizzie recorder Thomas Quarles [facility] hospitalist
[2016-08-22] MEDS ORDERED: IBUPROFEN 600 MG TAB PO PRN (18:30)
[2016-08-22] MEDS ORDERED: IV FLUIDS COMPLETED PRN (18:30)
--- NOTE | 2016-08-22 18:34 | EMERGENCY ROOM VISIT NOTE ---
History Report prepared by Missy: My Hunter Under the Supervision of: Dr. Karel Neves M.D. First contact with patient: 15:42 Chief Complaint: SYNCOPE (NEAR SYNCOPE) Stated Complaint: SYNCOPE X 3 History of Present Illness The patient is a 76 year old female who presents to the Emergency Room with complaints of three sudden syncopal episodes that occurred today prior to arrival. The patient reports that she was recently evaluated in the hospital 1 week ago for syncope and ventricular arrhythmias. She reports a diagnosis of vascular bigeminy. The patient states that she was started on Amiodarone. The patient states that today she lost consciousness three times today. She states that she noticed blurred vision prior to her vision going black. The patient states that she was watching TV during one of the syncopal episodes. She states that she did not eat much this morning. The patient states that she has been short of breath with exertion and additionally notes tachycardia. She notes that she had diarrhea yesterday. The patient reports a history of hypothyroidism. The patient's son states that the patient has appeared weak and fatigued each morning and after eating. He states that the patient has become nauseous with eating as well. Pt denies headache, fevers, chills, diaphoresis, visual changes, neck pain, chest pain, vomiting, abdominal pain, back pain, melena, hematochezia, urinary symptoms, numbness, lymphadenopathy, rash, or other complaints. Source of History: patient, family (son) Onset: today prior to arrival Position: other (global) Symptom Intensity: 3 episodes Quality: other (syncopal) Timing: other (sudden) Associated Symptoms: + LOC, + SOB (with exertion), + nausea, + diarrhea Note: Associated Symptoms: tachycardia, blurred vision Review of Systems See HPI for pertinent positives and negatives. A total of ten systems were reviewed and were otherwise negative. Past Medical & Surgical Medical Problems: (1) Benign hypertension (2) DVT (deep venous thrombosis) (3) Gastroesophageal reflux disease (4) Hiatal hernia (5) Hyperlipidemia (6) Low back pain with sciatica (7) Pulmonary embolism (8) Right Hip DJD (9) Syncope (10) Ventricular bigeminy Surgical Problems: (1) S/P knee replacement Family History No significant family history Social History Smoking Status: Never Smoker Alcohol Use: occasionally Drug Use: none Marital Status: Housing Status: lives with family Occupation Status: retired Current/Historical Medications Scheduled Amiodarone Hcl (Cordarone), 300 MG PO BID Aspirin (Aspirin 81), 81 MG PO DAILY Cholecalciferol (Vitamin D 1000 Unit), 1,000 INTER.UNIT PO BID Docusate Sodium (Docusate Sodium), 100 MG PO BID Fish Oil ([place]-3), 1,200 MG PO QAM Flaxseed (Linseed) (Flax Oil), 1,200 MG PO HS Levothyroxine Sodium (Synthroid), 88 MCG PO Q2D Levothyroxine Sodium (Synthroid), 75 MCG PO Q2D Multivitamins (Daily Darnell), 2 TAB PO DAILY Omeprazole (Prilosec), 40 MG PO DAILY Simvastatin (Zocor), 5 MG PO HS [Iron], 65 MG PO DAILY Scheduled PRN Acetaminophen (Tylenol), 500 MG PO UD PRN for Pain Gabapentin (Gabapentin), 300 MG PO TID PRN for LEG PAIN Ibuprofen (Advil), 200 MG PO DIRECTED PRN for Pain Allergies Coded Allergies: Adhesives (Verified Allergy, Unknown, REDNESS FROM EKG PATCHES, 08/07/16) Codeine (Verified Allergy, Unknown, DOPEY, 08/07/16) Lorazepam (Verified Allergy, Unknown, NAUSEA, 08/07/16) Oxycodone (Verified Allergy, Unknown, NAUSEA AND VOMITING, 08/07/16) POLLEN (Verified Allergy, Unknown, EYES AND THROAT ITCHY, 08/07/16) Propoxyphene (Verified Allergy, Unknown, nausea, 08/07/16) N/V--NEARLY COMATOSE? Erythromycin (Verified Adverse Reaction, Unknown, NAUSEA, 08/07/16) Morphine (Verified Adverse Reaction, Unknown, HALLUCINATIONS, 08/07/16) Prednisone (Verified Adverse Reaction, Unknown, "High dose prednisone" -- extreme anxiety, 08/07/16) Tramadol (Verified Adverse Reaction, Unknown, "loopy", 08/07/16) Physical Exam Vital Signs Date Time Temp Pulse Resp B/P (MAP) Pulse Ox O2 Delivery O2 Flow Rate FiO2 08/22/16 16:37 50 23 96 08/22/16 16:30 134/85 08/22/16 16:21 67 08/22/16 16:07 42 17 92 08/22/16 16:02 139/84 08/22/16 15:59 57 20 92 08/22/16 15:47 145/79 08/22/16 15:43 160/73 08/22/16 15:41 151/71 08/22/16 15:40 150/74 08/22/16 15:40 36.4 69 20 150/74 95 Room Air 67 151/71 81 160/73 08/22/16 15:35 160/72 08/22/16 15:29 36.4 64 20 160/72 95 Room Air 08/22/16 15:29 95 Room Air 08/22/16 15:29 95 Room Air Physical Exam GENERAL: Awake, alert, well-appearing, in no distress HENT: Normocephalic, atraumatic. Oropharynx unremarkable. EYES: Normal conjunctiva. Sclera non-icteric. NECK: Supple. No nuchal rigidity. FROM. No JVD. RESPIRATORY: Clear to auscultation. CARDIAC: Frequent Premature beats. Regular rate. Extremities warm and well perfused. Pulses equal. ABDOMEN: Soft, non-distended. No tenderness to palpation. No rebound or guarding. No masses. RECTAL: Deferred. MUSCULOSKELETAL: Chest examination reveals no tenderness. The back is symmetrical on inspection without obvious abnormality. There is no CVA tenderness to palpation. No joint edema. LOWER EXTREMITIES: Calves are equal size bilaterally and non-tender. No edema. No discoloration. NEURO: Normal sensorium. No sensory or motor deficits noted. SKIN: No rash or jaundice noted. Medical Decision & Procedures ER Provider Diagnostic Interpretation: X-ray: Per my interpretation, radiologist review. CHEST ONE VIEW PORTABLE CLINICAL HISTORY: Weakness, syncope COMPARISON STUDY: 08/07/2016 FINDINGS: The cardiac and mediastinal contours remain stable. There is stable aortic tortuosity/ectasia. There is no failure. There is no focal pulmonary consolidation. There are no pleural effusions.[ IMPRESSION: No active disease in the chest. Electronically signed by: Victoriano Gillis M.D. 08/22/2016 4:03 PM Dictated Date/Time: 08/22/2016 4:03 PM Laboratory Results 08/22/16 15:50 Red Blood Count 4.31, Mean Corpuscular Volume 96.5, Mean Corpuscular Hemoglobin 32.7, Mean Corpuscular Hemoglobin Concent 33.9, Mean Platelet Volume 10.6, Neutrophils (%) (Auto) 55.3, Lymphocytes (%) (Auto) 30.5, Monocytes (%) (Auto) 9.4, Eosinophils (%) (Auto) 4.4, Basophils (%) (Auto) 0.2, Neutrophils # (Auto) 2.64, Lymphocytes # (Auto) 1.46, Monocytes # (Auto) 0.45, Eosinophils # (Auto) 0.21, Basophils # (Auto) 0.01 08/22/16 15:50 Test 08/22/16 15:50 08/22/16 16:02 White Blood Count 4.78 K/uL (4.8-10.8) Red Blood Count 4.31 M/uL (4.2-5.4) Hemoglobin 14.1 g/dL (12.0-16.0) Hematocrit 41.6 % (37-47) Mean Corpuscular Volume 96.5 fL (80-100) Mean Corpuscular Hemoglobin 32.7 pg (25-34) Mean Corpuscular Hemoglobin Concent 33.9 g/dl (32-36) Platelet Count 199 K/uL (130-400) Mean Platelet Volume 10.6 fL (7.4-10.4) Neutrophils (%) (Auto) 55.3 % Lymphocytes (%) (Auto) 30.5 % Monocytes (%) (Auto) 9.4 % Eosinophils (%) (Auto) 4.4 % Basophils (%) (Auto) 0.2 % Neutrophils # (Auto) 2.64 K/uL (1.4-6.5) Lymphocytes # (Auto) 1.46 K/uL (1.2-3.4) Monocytes # (Auto) 0.45 K/uL (0.11-0.59) Eosinophils # (Auto) 0.21 K/uL (0-0.5) Basophils # (Auto) 0.01 K/uL (0-0.2) RDW Standard Deviation 47.0 fL (36.4-46.3) RDW Coefficient of Variation 13.4 % (11.5-14.5) Immature Granulocyte % (Auto) 0.2 % Immature Granulocyte # (Auto) 0.01 K/uL (0.00-0.02) Erythrocyte Sedimentation Rate 9 mm/hr (0-21) Prothrombin Time 10.7 SECONDS (9.0-12.0) Prothromb Time International Ratio 1.0 (0.9-1.1) Activated Partial Thromboplast Time 25.0 SECONDS (21.0-31.0) Partial Thromboplastin Ratio 1.0 Est Creatinine Clear Calc Drug Dose 68.4 ml/min Estimated GFR () 68.3 Estimated GFR (Non- 58.9 BUN/Creatinine Ratio 18.1 (10-20) Calcium Level 8.5 mg/dl (8.5-10.1) Magnesium Level 2.2 mg/dl (1.8-2.4) Total Bilirubin 0.5 mg/dl (0.2-1) Direct Bilirubin 0.2 mg/dl (0-0.2) Aspartate Amino Transf (AST/SGOT) 24 U/L (15-37) Alanine Aminotransferase (ALT/SGPT) 31 U/L (12-78) Alkaline Phosphatase 74 U/L (45-117) Total Creatine Kinase 106 U/L (26-192) Creatine Kinase MB 2.2 ng/ml (0.5-3.6) Creatine Kinase MB Ratio 2.1 (0-3.0) C-Reactive Protein 0.41 mg/dl (0-0.29) Total Protein 6.9 gm/dl (6.4-8.2) Albumin 3.4 gm/dl (3.4-5.0) Thyroid Stimulating Hormone (TSH) 7.270 uIu/ml (0.300-4.500) Free Thyroxine 1.37 ng/dl (0.80-1.60) Free Triiodothyronine 1.93 pg/ml (2.30-4.20) Lyme Disease IgG Antibody NEG (NEG) Lyme Disease IgM Antibody NEG (NEG) Bedside Hemoglobin 13.6 g/dl (12.0-16.0) Bedside Hematocrit 40 % (37-47) Bedside Sodium 140 mEq/L (135-144) Bedside Potassium 3.9 mEq/L (3.3-5.0) Bedside Chloride 102 mEq/L (101-112) Bedside Total CO2 24 mEq/l (24-31) Anion Gap 19.0 mmol/L (16-25) Bedside Blood Urea Nitrogen 17 mg/dl (7-18) Bedside Creatinine 0.9 mg/dl (0.6-1.3) Bedside Glucose (other) 121 mg/dl (70-99) Bedside Ionized Calcium (Inez) 1.20 mmol/l (1.12-1.32) Laboratory results reviewed by me Medications Administered Medications (Trade) Dose Ordered Sig/Kee Route Start Time Stop Time Status Last Admin Dose Admin Sodium Chloride 1,000 ml @ 125 mls/hr Q8H STAT IV 08/22/16 15:42 08/22/16 18:17 DC 08/22/16 16:07 125 MLS/HR ECG Indication: syncope Rate (beats per minute): 68 Rhythm: sinus rhythm Findings: PVC (in the pattern of bigeminy), no acute ischemic change ED Course 1542: Ordered Sodium Chloride 1000 ml @ 125 mls/hr IV. 1556: The patient was evaluated in room B10. A complete history and physical exam was performed. 1615: I discussed the patients case with Dr. Christianson, Cardiology. He states that the patient should be evaluated in the hospital under the hospitalist group and notes that they will consult the patient. 1633: I discussed the patients case with Dr. Hidalgo, [facility] [place]. He is going to evaluate the patient for further treatment. 1642: I reevaluated the patient and he she is doing well. I discussed all the exam findings with her and I discussed the treatment plan. She verbalized complete understanding and agreement. She will be evaluated for further treatment. Medical Decision Medication Reconciliation: I attest that I have personally reviewed the patient' s current medication list Blood pressure screening: Patient was found to have an elevated blood pressure and was referred to their primary doctor for recheck and further treatment. Triage Nursing notes reviewed. The patient's presentation and history were concerning for syncope. Etiologies such as dysrhythmia, vasovagal event, infection, hypoglycemia, electrolyte abnormalities, cardiac sources, intracerebral event, toxicologic, neurologic, as well as others were entertained. The patient was evaluated. Clinically she is stable. I did give medical command to the paramedics for Ativan as the patient was anxious after the event. This seemed to help her relax. She does have bigeminy. She had an unremarkable CBC and chemistry panel. TSH was minimally elevated. Cardiac markers are negative. Lyme test was negative. Consultation was made with cardiology. Further evaluation and management in the hospital was recommended that she has no results with her current treatment. The patient had a consult with internal medicine for further management. Consults Time Called: 1611 Consulting Physician: Dr. Christianson, Cardiology Returned Call: 1615 I discussed the patients case with Dr. Christianson, Cardiology. He states that the patient should be evaluated in the hospital under the hospitalist group and notes that they will consult the patient. Additional Consults: Time Called: 1633 Consulted Physician: ERASTO Griffin Returned Call: 1633 Additional Comments: I discussed the patients case with ERASTO Griffin. He is going to evaluate the patient for further treatment. Impression Primary Impression: Syncope Additional Impression: Bigeminy Scribe Attestation The scribe's documentation has been prepared under my direction and personally reviewed by me in its entirety. I confirm that the note above accurately reflects all work, treatment, procedures, and medical decision making performed by me. Departure Information Dispostion Being Evaluated By Hospitalist Referrals Aisha Matthew DO (PCP) Problem Qualifiers
[2016-08-22 18:49] VITALS: BP 163/69; PULSE 60; TEMP 36.7; Ht 177.8 cm; Wt 109.8 kg
[2016-08-22] MEDS: ENOXAPARIN 40 MG/0.4 ML SYR SC SCH (19:39)
[2016-08-22] MEDS: CHOLECALCIFEROL 1000 INTER.UNIT TAB PO SCH (19:40)
[2016-08-22] MEDS: DOCUSATE SODIUM 100 MG CAP PO SCH (19:40)
[2016-08-22] MEDS: SIMVASTATIN 5 MG TAB PO SCH (19:40)
[2016-08-22 20:20] VITALS: BP 150/89; PULSE 53; TEMP 36.8; O2SAT 97
[2016-08-22 20:49] LABS: URINE APPEARANCE CLEAR (CLEAR); URINE BILIRUBIN NEG (NEG); URINE COLOR YELLOW; URINE NITRITE NEG (NEG); URINE SPECIFIC GRAVITY 1.013 (1.000-1.030); UROBILINOGEN NEG (NEG)
[2016-08-22 20:51] LABS: MANUAL MICROSCOPIC REQUIRED? NO; REVIEW REQ? NO
[2016-08-22 23:21] VITALS: BP 164/80; PULSE 41; TEMP 36.8; O2SAT 95
[2016-08-23] VITALS (7 sets, daily range): BP systolic 124–156; BP diastolic 65–105; PULSE 47–62; TEMP 36.4–36.7; O2SAT 94–97
[2016-08-23] MEDS: LEVOTHYROXINE 88 MCG TAB PO SCH (06:05)
--- NOTE | 2016-08-23 06:43 | DIAGNOSTIC IMAGING REPORT ---
HEAD CT NONCONTRAST CT DOSE: 537.48 mGy.cm HISTORY: Mental status change near syncope, behavioral changes TECHNIQUE: Multiaxial CT images of the head were performed without the use of intravenous contrast. Comparison: None. Findings: The paranasal sinuses and mastoid air cells are clear. The calvarium and skull base are intact. The ventricles and sulci are within normal limits. There is no mass, hematoma, midline shift, or acute infarct. Impression: No acute intracranial abnormality. Electronically signed by: Francisco Escobar M.D. 08/23/2016 6:42 AM Dictated Date/Time: 08/23/2016 6:41 AM
[2016-08-23 06:55] LABS: MEAN CELL VOLUME 97.3 fL (80-100); MEAN CORPUSCULAR HEMOGLOBIN 32.4 pg (25-34); MEAN CORPUSCULAR HGB CONC 33.3 g/dl (32-36); MEAN PLATELET VOLUME 10.7 fL (7.4-10.4); PLATELET COUNT 186 K/uL (130-400); RED BLOOD COUNT 4.11 M/uL (4.2-5.4); WHITE BLOOD COUNT 4.65 K/uL (4.8-10.8)
[2016-08-23 07:26] LABS: BUN/CREATININE RATIO 15.1 (10-20); CALCIUM 8.7 mg/dl (8.5-10.1); CREATININE 0.91 mg/dl (0.60-1.20); POTASSIUM 3.9 mmol/L (3.5-5.1)
[2016-08-23] MEDS: CHOLECALCIFEROL 1000 INTER.UNIT TAB PO SCH ×2 (08:14→21:02)
[2016-08-23] MEDS: OMEGA-3 (PURIFIED FISH OIL) 1 GM CAP PO SCH (08:14)
[2016-08-23] MEDS: ASPIRIN 81 MG ECTAB PO SCH (08:14)
[2016-08-23] MEDS: PANTOprazole SOD 40 MG TAB PO SCH (08:14)
[2016-08-23] MEDS: DOCUSATE SODIUM 100 MG CAP PO SCH ×2 (08:43→21:02)
--- NOTE | 2016-08-23 14:51 | Hospitalist Progress Note ---
Hospitalist Progress Note Date of Service Aug 23, 2016. Subjective Pt evaluation today including: conversation w/ patient, physical exam, chart review, lab review, review of studies, review of inpatient medication list Voiding: no voiding problems, no incontinence Patient states she is feeling OK this AM. She is eating and drinking OK. Denies syncopal episode yesterday, but states she felt very close to passing out. Similar symptoms in the past, which she has been told is related to her PVCs Negative stress echo 07/27/16 Discussed ablation in the past w/ cardiology, but was trying Amiodarone first. +palpations . Patient admits to worsening anxiety/depression over the last couple of months. She states she feels a "gloomy" overall feeling on most days. She request to speak to psychiatry. She admits to anxiousness en route to ED and resolved w/ ?Ativan- ?Ativan as this is listed as an allergy +depressed feeling today Patient denies any fever, chills, sweats, lightheadedness, dizziness, vision changes, CP, edema, SOB, wheezing, cough, abdominal pain, nausea, vomiting, diarrhea, urinary symptoms, melena, numbness/tingling, weakness, muscle/joint pain, active bleeding, or new skin discoloration/changes. Medications Current Inpatient Medications Medications (Trade) Dose Ordered Sig/Kee Route Start Time Stop Time Status Last Admin Dose Admin Enoxaparin Sodium (Lovenox Inj) 40 mg Q24H SC 08/22/16 21:00 09/21/16 20:59 08/22/16 19:39 40 MG Acetaminophen (Tylenol Tab) 650 mg Q4H PRN PO 08/22/16 16:45 09/21/16 16:44 Al Hydrox/Mg Hydrox/Simethicone (Maalox Max Susp) 15 ml Q4H PRN PO 08/22/16 16:45 09/21/16 16:44 Magnesium Hydroxide (Milk Of Magnesia Susp) 30 ml Q12H PRN PO 08/22/16 16:45 09/21/16 16:44 Ondansetron HCl (Zofran Inj) 4 mg Q6H PRN IV 08/22/16 16:45 09/21/16 16:44 Polyethylene (Miralax Powder Packet) 17 gm DAILY PRN PO 08/22/16 16:45 09/21/16 16:44 Aspirin (Ecotrin Tab) 81 mg DAILY PO 08/23/16 09:00 09/22/16 08:59 08/23/16 08:14 81 MG Cholecalciferol (Vitamin D Tab) 1,000 inter.unit BID PO 08/22/16 21:00 09/21/16 20:59 08/23/16 08:14 1,000 INTER.UNIT Docusate Sodium (coLACE CAP) 100 mg BID PO 08/22/16 21:00 09/21/16 20:59 Fish Oil ([place]-3 (Purified Fish Oil) Cap) 1 gm QAM PO 08/23/16 09:00 09/22/16 08:59 08/23/16 08:14 1 GM Gabapentin (Neurontin Cap) 300 mg TID PRN PO 08/22/16 17:00 09/21/16 16:59 Ibuprofen (Motrin Tab) 600 mg Q6H PRN PO 08/22/16 18:30 09/21/16 18:29 Levothyroxine Sodium (Synthroid Tab) 75 mcg Q2D@0600 PO 08/24/16 06:00 09/23/16 05:59 Levothyroxine Sodium (Synthroid Tab) 88 mcg Q2D@0600 PO 08/23/16 06:00 09/22/16 05:59 08/23/16 06:05 88 MCG Simvastatin (Zocor Tab) 5 mg HS PO 08/22/16 21:00 09/21/16 20:59 08/22/16 19:40 5 MG Pantoprazole Sodium (Protonix Tab) 40 mg QAM PO 08/23/16 09:00 09/22/16 08:59 08/23/16 08:14 40 MG Miscellaneous (Iv Fluids Completed) 1 ea PRN PRN N/A 08/22/16 18:30 08/22/17 18:29 Objective Vital Signs Date Time Temp Pulse Resp B/P (MAP) Pulse Ox O2 Delivery O2 Flow Rate FiO2 08/23/16 12:20 Room Air 08/23/16 11:45 36.5 55 16 142/86 (104) 94 Room Air 08/23/16 08:15 Room Air 08/23/16 07:57 36.5 53 16 155/105 (122) 94 Room Air 143/71 (95) 08/23/16 04:00 Room Air 08/23/16 03:55 36.4 51 18 124/74 (91) 94 Room Air 08/23/16 00:00 Room Air 08/22/16 23:21 36.8 41 20 164/80 (108) 95 Room Air 08/22/16 20:20 36.8 53 19 150/89 (109) 97 Room Air 08/22/16 20:00 Room Air 08/22/16 18:49 36.7 60 20 163/69 Room Air 08/22/16 17:30 36.4 92 22 140/64 95 08/22/16 17:12 92 22 95 08/22/16 17:07 73 25 95 08/22/16 17:01 140/64 08/22/16 16:37 50 23 96 08/22/16 16:30 134/85 08/22/16 16:21 67 08/22/16 16:07 42 17 92 08/22/16 16:02 139/84 08/22/16 15:59 57 20 92 08/22/16 15:47 145/79 08/22/16 15:43 160/73 08/22/16 15:41 151/71 08/22/16 15:40 150/74 08/22/16 15:40 36.4 69 20 150/74 95 Room Air 67 151/71 81 160/73 08/22/16 15:35 160/72 08/22/16 15:29 36.4 64 20 160/72 95 Room Air 08/22/16 15:29 95 Room Air 08/22/16 15:29 95 Room Air Physical Exam General Appearance: no apparent distress Eyes: normal inspection, PERRL ENT: hearing grossly normal Neck: supple Respiratory/Chest: lungs clear, no respiratory distress, no accessory muscle use Cardiovascular: + bradycardia, + pertinent finding (irregular rhythm) Abdomen: normal bowel sounds, non tender, soft Extremities: no pedal edema, no calf tenderness Neurologic/Psychiatric: alert, oriented x 3, + depressed affect Skin: normal color, warm/dry, no rash Laboratory Results Last 24 Hours Test 08/22/16 15:50 08/22/16 16:02 08/22/16 18:29 08/22/16 20:31 White Blood Count 4.78 K/uL Red Blood Count 4.31 M/uL Hemoglobin 14.1 g/dL Hematocrit 41.6 % Mean Corpuscular Volume 96.5 fL Mean Corpuscular Hemoglobin 32.7 pg Mean Corpuscular Hemoglobin Concent 33.9 g/dl Platelet Count 199 K/uL Mean Platelet Volume 10.6 fL Neutrophils (%) (Auto) 55.3 % Lymphocytes (%) (Auto) 30.5 % Monocytes (%) (Auto) 9.4 % Eosinophils (%) (Auto) 4.4 % Basophils (%) (Auto) 0.2 % Neutrophils # (Auto) 2.64 K/uL Lymphocytes # (Auto) 1.46 K/uL Monocytes # (Auto) 0.45 K/uL Eosinophils # (Auto) 0.21 K/uL Basophils # (Auto) 0.01 K/uL RDW Standard Deviation 47.0 fL RDW Coefficient of Variation 13.4 % Immature Granulocyte % (Auto) 0.2 % Immature Granulocyte # (Auto) 0.01 K/uL Erythrocyte Sedimentation Rate 9 mm/hr Prothrombin Time 10.7 SECONDS Prothromb Time International Ratio 1.0 Activated Partial Thromboplast Time 25.0 SECONDS Partial Thromboplastin Ratio 1.0 Sodium Level 141 mmol/L Potassium Level 3.9 mmol/L Chloride Level 108 mmol/L Carbon Dioxide Level 25 mmol/L Anion Gap 8.0 mmol/L 19.0 mmol/L Blood Urea Nitrogen 17 mg/dl Creatinine 0.94 mg/dl Est Creatinine Clear Calc Drug Dose 68.4 ml/min Estimated GFR () 68.3 Estimated GFR (Non- 58.9 BUN/Creatinine Ratio 18.1 Random Glucose 115 mg/dl Calcium Level 8.5 mg/dl Magnesium Level 2.2 mg/dl Total Bilirubin 0.5 mg/dl Direct Bilirubin 0.2 mg/dl Aspartate Amino Transf (AST/SGOT) 24 U/L Alanine Aminotransferase (ALT/SGPT) 31 U/L Alkaline Phosphatase 74 U/L Total Creatine Kinase 106 U/L Creatine Kinase MB 2.2 ng/ml Creatine Kinase MB Ratio 2.1 Troponin I < 0.015 ng/ml 0.022 ng/ml C-Reactive Protein 0.41 mg/dl Total Protein 6.9 gm/dl Albumin 3.4 gm/dl Thyroid Stimulating Hormone (TSH) 7.270 uIu/ml Free Thyroxine 1.37 ng/dl Free Triiodothyronine 1.93 pg/ml Lyme Disease IgG Antibody NEG Lyme Disease IgM Antibody NEG Bedside Hemoglobin 13.6 g/dl Bedside Hematocrit 40 % Bedside Sodium 140 mEq/L Bedside Potassium 3.9 mEq/L Bedside Chloride 102 mEq/L Bedside Total CO2 24 mEq/l Bedside Blood Urea Nitrogen 17 mg/dl Bedside Creatinine 0.9 mg/dl Bedside Glucose (other) 121 mg/dl Bedside Ionized Calcium (Inez) 1.20 mmol/l Urine Color YELLOW Urine Appearance CLEAR Urine pH 6.0 Urine Specific [place] 1.013 Urine Protein NEG Urine Glucose (UA) NEG Urine Ketones TRACE Urine Occult Blood NEG Urine Nitrite NEG Urine Bilirubin NEG Urine Urobilinogen NEG Urine Leukocyte Esterase NEG Test 08/22/16 20:46 08/23/16 06:38 Bedside Glucose 104 mg/dl White Blood Count 4.65 K/uL Red Blood Count 4.11 M/uL Hemoglobin 13.3 g/dL Hematocrit 40.0 % Mean Corpuscular Volume 97.3 fL Mean Corpuscular Hemoglobin 32.4 pg Mean Corpuscular Hemoglobin Concent 33.3 g/dl RDW Standard Deviation 47.5 fL RDW Coefficient of Variation 13.5 % Platelet Count 186 K/uL Mean Platelet Volume 10.7 fL Sodium Level 144 mmol/L Potassium Level 3.9 mmol/L Chloride Level 111 mmol/L Carbon Dioxide Level 27 mmol/L Anion Gap 6.0 mmol/L Blood Urea Nitrogen 14 mg/dl Creatinine 0.91 mg/dl Est Creatinine Clear Calc Drug Dose 70.8 ml/min Estimated GFR () 71.0 Estimated GFR (Non- 61.3 BUN/Creatinine Ratio 15.1 Random Glucose 87 mg/dl Calcium Level 8.7 mg/dl Assessment and Plan 76F with a PMHx of HTN, HLD, hypothyroidism, bigeminal pulse who was recently discharged from [facility] for near syncope presents with another near syncopial event. EKG shows bigeminal pulse. Pt is currently taking 300mg BID Amiodarone and reports side effects include tremors, anxiety, staying awake at night. Pt' s son is reporting pt has a new onset depressed affect on Amiodarone. CT head pending. Near syncopal episode, likely secondary to PVCs and frequent bigeminal pulses: - Admit to [facility] for cardiac monitoring- no acute events - Cardiac enzymes negative x2 - Head CT- unremarkable - Lyme screen negative - ESR and CRP- unremarkable Bigeminal pulse/PVCs: - Amiodarone 300 mg BID held per cardiology recommendations - Continue Aspirin 81 mg daily - Consulted cardiology, appreciate recommendations Hypothyroidism: - TSH 7.3, T3 low and T4 WNL - Continue Synthroid 88 mcg Q2D and 75 mcg Q2D - Recommend patient have Endocrinology f/u outpatient Anxiety/depression: Consult psychiatry, appreciate recommendations GERD: Continue Protonix HLD: Zocor 5 mg HS GI Prophylaxis: Protonix, Maalox PRN, IV Zofran PRN, Colace and/or Milk of Mag PRN DVT prophylaxis: Lovenox 40 mg SQ q24 hrs, ERNESTO and SCDs Code Status: LEVEL I, FULL Dispo: From home, lives w/ son- no discharge needs anticipated
--- NOTE | 2016-08-23 15:15 | Psychiatric Consultation ---
Consultation Date of Consultation Aug 23, 2016. Identifying Data Irlanda Velazquez is a 76-year-old female who currently lives in [place] with unmarried son. Mrs. Velazquez was was brought to the ED by ambulance]. Information provided by the patient is considered to be reliable. Chief Complaint "I have these spells of what I call "fuzzy headedness," and "I have episodes of lightheadedness, extreme nervousness, loss of vision, and the feeling that I'm about to pass out or ." History of Present Illness The patient is a 76-year-old woman who is currently on the medical service where she is being evaluated for recurrent episodes of syncope. She reports that in May or June of this year she was sitting at her computer when suddenly she felt "extremely nervous, and suddenly overwhelmed by sadness." Patient reports that this episode past after approximately 15 minutes, but she remained nervous and watchful for the next day or so. More recently, she experienced an episode during which she felt "suddenly extremely nervous." She began to notice lightheadedness, the sensation at the room was becoming dark, and a sense that "something dreadful was about to happen." She said that although she felt lightheaded, she stood and walked around the room, whereupon the acute feelings of anxiety and lightheadedness resolved, but she remained extremely anxious and fretful throughout the entire evening. On the day prior to her current admission, she was watching television and experience "the most dreadful of the 3 attacks." She reports that she felt certain that she was about to , with symptoms similar to what had occurred on the previous episodes: Right-handed this, feeling that she is about to pass out, and a darkening of the room.) "My vision got sort of like I was looking through the world through a snowstorm or something.") She had a blood pressure and pulse monitor that she was able to use, and it showed her pulse rate was as low as 32 and a psychiatrist 38 during the episode, but she is not certain if this was an accurate reading. She lives with her son, but her son had stepped out of the home shortly before the episode, and so she called 911 and was brought to the emergency room. The patient reports that she was treated by "a psychologist" following a romantic disappointment during college in the early 1960s. She says she was also given medications for depression at that time, but she does not recall what they were. She has not had episodes of depression or anxiety since then, and she says that now, she feels "fine" most of the time, except when these episodes of anxiety and depression, upon her suddenly in association with lightheadedness and the sensation that she is going to lose consciousness. She denies any history of seizures or head injuries. A CT of the head was normal. There is a strong family history of heart disease, with both parents dying in their 60s of myocardial infarctions. Her mother also suffered a CVA at age 63.. Today is the anniversary of the of her late . Her 7 years ago of heart disease. She tells me that she has had a good life and is happy. She has, "mostly I think I'm a happy person. I don't feel particularly sad, and I do get pleasure out of life." (The patient describes a series of interests and hobbies) Past Psychiatric History Current OP Treatment: no current treatment Prior OP Treatment: psychiatrist (although the patient says she was seen by a "psychologist" in the early following a breakup with her boyfriend of the time, she indicates that the treatment provider prescribed medications, so presumably she was seeing a psychiatrist. She says that at that time she felt extremely sad, but the feelings of sadness resolved and she suddenly realized that she was better off without the boyfriend than with him.) Prior Psych Hospitalizations: none Access to a Gun: No Suicide Attempts: No Past Medical/Surgical History History of Concussion/Seizure: No Allergies Allergies: Coded Allergies: Adhesives (Verified Allergy, Unknown, REDNESS FROM EKG PATCHES, 08/07/16) Codeine (Verified Allergy, Unknown, DOPEY, 08/07/16) Lorazepam (Verified Allergy, Unknown, NAUSEA, 08/07/16) Oxycodone (Verified Allergy, Unknown, NAUSEA AND VOMITING, 08/07/16) POLLEN (Verified Allergy, Unknown, EYES AND THROAT ITCHY, 08/07/16) Propoxyphene (Verified Allergy, Unknown, nausea, 08/07/16) N/V--NEARLY COMATOSE? Erythromycin (Verified Adverse Reaction, Unknown, NAUSEA, 08/07/16) Morphine (Verified Adverse Reaction, Unknown, HALLUCINATIONS, 08/07/16) Prednisone (Verified Adverse Reaction, Unknown, "High dose prednisone" -- extreme anxiety, 08/07/16) Tramadol (Verified Adverse Reaction, Unknown, "loopy", 08/07/16) Home Medications Scheduled Amiodarone Hcl (Cordarone), 300 MG PO BID Aspirin (Aspirin 81), 81 MG PO DAILY Cholecalciferol (Vitamin D 1000 Unit), 1,000 INTER.UNIT PO BID Docusate Sodium (Docusate Sodium), 100 MG PO BID Fish Oil ([place]-3), 1,200 MG PO QAM Flaxseed (Linseed) (Flax Oil), 1,200 MG PO HS Levothyroxine Sodium (Synthroid), 88 MCG PO Q2D Levothyroxine Sodium (Synthroid), 75 MCG PO Q2D Multivitamins (Daily Darnell), 2 TAB PO DAILY Omeprazole (Prilosec), 40 MG PO DAILY Simvastatin (Zocor), 5 MG PO HS [Iron], 65 MG PO DAILY Scheduled PRN Acetaminophen (Tylenol), 500 MG PO UD PRN for Pain Gabapentin (Gabapentin), 300 MG PO TID PRN for LEG PAIN Ibuprofen (Advil), 200 MG PO DIRECTED PRN for Pain Family History History of Suicide: No History of Substance Abuse: No Psychiatric History: No Both parents of heart disease in their 60s. The patient's mother suffered a CVA at the age of 63. The patient is understandably anxious by symptoms that suggest heart disease or cerebrovascular disease. Alcohol Use Alcohol Use In Past 12 Months: No Smoking Use Smoking Status: Never Smoker Substance History The patient does not have a history of drug or alcohol misuse. 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 Relationship History: (the patient's , a professor at [employer], suddenly while lecturing approximate 7 years ago. She says that she had a happy marriage and) Children: patient has 2 adult children, a son and a daughter. Spiritual Affiliation: the patient is Jainism and attends [employer]. Legal History: none Review of Systems Review of systems is recorded in the record reviewed and accepted. The patient reports that she has never been given a diagnosis of mitral valve prolapse. She is aware that she has a known history of premature ventricular contractions and episodes of bigeminy. Surgeries include a partial hysterectomy, knee replacement, hip replacement, and the patient also has a history of DVTs Examination Physical Examination Physical examination reviewed. Vital Signs Vital Signs Past 12 Hours Date Time Temp Pulse Resp B/P (MAP) Pulse Ox O2 Delivery O2 Flow Rate FiO2 08/23/16 12:20 Room Air 08/23/16 11:45 36.5 55 16 142/86 (104) 94 Room Air 08/23/16 08:15 Room Air 08/23/16 07:57 36.5 53 16 155/105 (122) 94 Room Air 143/71 (95) 08/23/16 04:00 Room Air 08/23/16 03:55 36.4 51 18 124/74 (91) 94 Room Air Laboratory Results Last 24 Hours Test 08/22/16 15:50 08/22/16 16:02 08/22/16 18:29 08/22/16 20:31 White Blood Count 4.78 K/uL Red Blood Count 4.31 M/uL Hemoglobin 14.1 g/dL Hematocrit 41.6 % Mean Corpuscular Volume 96.5 fL Mean Corpuscular Hemoglobin 32.7 pg Mean Corpuscular Hemoglobin Concent 33.9 g/dl Platelet Count 199 K/uL Mean Platelet Volume 10.6 fL Neutrophils (%) (Auto) 55.3 % Lymphocytes (%) (Auto) 30.5 % Monocytes (%) (Auto) 9.4 % Eosinophils (%) (Auto) 4.4 % Basophils (%) (Auto) 0.2 % Neutrophils # (Auto) 2.64 K/uL Lymphocytes # (Auto) 1.46 K/uL Monocytes # (Auto) 0.45 K/uL Eosinophils # (Auto) 0.21 K/uL Basophils # (Auto) 0.01 K/uL RDW Standard Deviation 47.0 fL RDW Coefficient of Variation 13.4 % Immature Granulocyte % (Auto) 0.2 % Immature Granulocyte # (Auto) 0.01 K/uL Erythrocyte Sedimentation Rate 9 mm/hr Prothrombin Time 10.7 SECONDS Prothromb Time International Ratio 1.0 Activated Partial Thromboplast Time 25.0 SECONDS Partial Thromboplastin Ratio 1.0 Sodium Level 141 mmol/L Potassium Level 3.9 mmol/L Chloride Level 108 mmol/L Carbon Dioxide Level 25 mmol/L Anion Gap 8.0 mmol/L 19.0 mmol/L Blood Urea Nitrogen 17 mg/dl Creatinine 0.94 mg/dl Est Creatinine Clear Calc Drug Dose 68.4 ml/min Estimated GFR () 68.3 Estimated GFR (Non- 58.9 BUN/Creatinine Ratio 18.1 Random Glucose 115 mg/dl Calcium Level 8.5 mg/dl Magnesium Level 2.2 mg/dl Total Bilirubin 0.5 mg/dl Direct Bilirubin 0.2 mg/dl Aspartate Amino Transf (AST/SGOT) 24 U/L Alanine Aminotransferase (ALT/SGPT) 31 U/L Alkaline Phosphatase 74 U/L Total Creatine Kinase 106 U/L Creatine Kinase MB 2.2 ng/ml Creatine Kinase MB Ratio 2.1 Troponin I < 0.015 ng/ml 0.022 ng/ml C-Reactive Protein 0.41 mg/dl Total Protein 6.9 gm/dl Albumin 3.4 gm/dl Thyroid Stimulating Hormone (TSH) 7.270 uIu/ml Free Thyroxine 1.37 ng/dl Free Triiodothyronine 1.93 pg/ml Lyme Disease IgG Antibody NEG Lyme Disease IgM Antibody NEG Bedside Hemoglobin 13.6 g/dl Bedside Hematocrit 40 % Bedside Sodium 140 mEq/L Bedside Potassium 3.9 mEq/L Bedside Chloride 102 mEq/L Bedside Total CO2 24 mEq/l Bedside Blood Urea Nitrogen 17 mg/dl Bedside Creatinine 0.9 mg/dl Bedside Glucose (other) 121 mg/dl Bedside Ionized Calcium (Inez) 1.20 mmol/l Urine Color YELLOW Urine Appearance CLEAR Urine pH 6.0 Urine Specific [place] 1.013 Urine Protein NEG Urine Glucose (UA) NEG Urine Ketones TRACE Urine Occult Blood NEG Urine Nitrite NEG Urine Bilirubin NEG Urine Urobilinogen NEG Urine Leukocyte Esterase NEG Test 08/22/16 20:46 08/23/16 06:38 Bedside Glucose 104 mg/dl White Blood Count 4.65 K/uL Red Blood Count 4.11 M/uL Hemoglobin 13.3 g/dL Hematocrit 40.0 % Mean Corpuscular Volume 97.3 fL Mean Corpuscular Hemoglobin 32.4 pg Mean Corpuscular Hemoglobin Concent 33.3 g/dl RDW Standard Deviation 47.5 fL RDW Coefficient of Variation 13.5 % Platelet Count 186 K/uL Mean Platelet Volume 10.7 fL Sodium Level 144 mmol/L Potassium Level 3.9 mmol/L Chloride Level 111 mmol/L Carbon Dioxide Level 27 mmol/L Anion Gap 6.0 mmol/L Blood Urea Nitrogen 14 mg/dl Creatinine 0.91 mg/dl Est Creatinine Clear Calc Drug Dose 70.8 ml/min Estimated GFR () 71.0 Estimated GFR (Non- 61.3 BUN/Creatinine Ratio 15.1 Random Glucose 87 mg/dl Calcium Level 8.7 mg/dl Mental Examination During interview pt is: alert and oriented, cooperative Appearance: appropriately dressed Eye contact is: good Motor behavior is: other (the patient was examined while she was resting in bed.) Speech: normal in rate, rhythm & volume, other (the patient's speech is spontaneous and she is not effective storyteller.) Affect: euthymic Mood is: other (the patient states that her mood is "pretty good." She says that most the time her mood is "pretty good," but she becomes distracted and "depressed" and she expresses episodes of anxiety, and then 4 hours afterwards.) Thought process: goal directed, linear, logical, clear, coherent Thought content: reality based without delusions Suicidal thought are: denied Homicidal thoughts are: denied Hallucinations: auditory Cognition: memory grossly intact Intelligence estimated to be: above average Insight: excellent Judgement: excellent Impression / Recommendations Impression This 76-year-old woman was evaluated by me because of complaints of depression and anxiety, within the context of her admission to the medical floor for evaluation of recurrent episodes of syncope. Patient's history is somewhat inconsistent with atypical major depressive episode or a generalized anxiety disorder in that she describes episodes of acute onset of anxiety and depression , code occurring with discrete, circumscribed episodes of lightheadedness, a sensation that she is going to pass out, extreme anxiety, feelings of impending doom, and a sense that the room is "darkening" or provision becomes "tunneled." She also notices she feels short of breath, but she is not aware of palpitations. Although she has never had chest pain on exertion, she says that she has experienced a discomfort in her chest during the discrete episodes, as described above. She continues to feel anxious and depressed following these episodes sometimes for an hour or longer, but both the depression and anxiety symptoms resolve fully between episodes. She also reports that she sometimes feels "foggy or fuzzy headed" in the mornings. These periods of "fuzzy headedness" do not occur regularly, are fairly short-lived and are characterized by her having difficulty thinking clearly, but she says it does not interfere with her ability to function. Of note is the fact that she reports that the symptoms typically resolve after she is had something to eat. The following are considerations: #1. Consider mitral valve prolapse. I was unable to find evidence that the patient has had a workup for mitral valve prolapse, and if she hasn't already a echocardiogram might be indicated. Mitral valve prolapse can mimic panic attacks and can present with similar symptoms to those which have been reported by the patient. #2. Consider periodic hypoglycemia. The patient is encouraged to eat a snack before retiring and eat shortly after wakening in the mornings. #3. Thyroid abnormalities in the elderly, both hypothyroidism and hypothyroidism can present with symptoms that mimic anxiety and depression. I note that the patient had a somewhat low T3 level, but I don't know if a full thyroid panel has been obtained. If not, this might be worth exploring. #4. The patient has symptoms that suggest a panic episode, either a primary panic episode, or a panic episode secondary to a precipitating cardiac event. She is indicated that she is allergic to lorazepam, and given her age benzodiazepine medications such as appraisal M would be associated with certain risk. While I do not believe that she has a primary diagnosis of major depressive disorder, a trial of citalopram, Lexapro or similar medication may be indicated. I would not start her on this medication in the hospital, but would suggest follow-up on an outpatient basis. Inventory Assets Strengths: Intelligence, since of humor, well educated, strong family support, good social skills, interest and hobbies. Needs: Further evaluation for possible underlying panic attacks and atypical depression. Risk Factors Assessment : Yes /single/: Yes Higher / Fall in social status: No Access to guns: No Health problems: Yes Mental Health Diagnoses: No Substance use disorders: No Previous attempt: No Previous attempt;highly lethal: No Previous attempt; planned: No Previous attempt; didn't tell: No Family history of suicide: No Previous psychiatric stay: No Hopelessness: No Smoker: No Protective Factors Assessment Mormon beliefs: Yes : No Responsible for young children: No Employed: Yes Stable relationships: Yes Supportive family: Yes Good rapport with provider: Yes Absence of risk factors above: No Recommendations (1) Dizziness Rule out mitral valve prolapse. As above, the patient's episodes of dizziness, shortness of breath, feelings of impending doom, and even what she is calling "depression" may be related to panic episodes. These episodes may be either a primary cause of the symptoms, or may be secondary to underlying reactive abnormalities. A full thyroid panel should be obtained, and I would consider an echocardiogram to rule out mitral valve prolapse (2) Syncope Rule out mitral valve prolapse. As above, the patient's episodes of dizziness, shortness of breath, feelings of impending doom, and even what she is calling "depression" may be related to panic episodes. These episodes may be either a primary cause of the symptoms, or may be secondary to underlying reactive abnormalities. A full thyroid panel should be obtained, and I would consider an echocardiogram to rule out mitral valve prolapse (3) Ventricular bigeminy (4) SOB (shortness of breath) Rule out mitral valve prolapse. As above, the patient's episodes of dizziness, shortness of breath, feelings of impending doom, and even what she is calling "depression" may be related to panic episodes. These episodes may be either a primary cause of the symptoms, or may be secondary to underlying reactive abnormalities. A full thyroid panel should be obtained, and I would consider an echocardiogram to rule out mitral valve prolapse The patient has expressed an interest in being followed by a psychiatrist on an outpatient basis. I would be happy to accept her into my practice at [facility] [place] upon referral
--- NOTE | 2016-08-23 20:35 | CARDIOLOGY CONSULTATION ---
DATE OF CONSULTATION: 08/23/2016 REFERRING PHYSICIAN: Thomas Quarles MD. CHIEF COMPLAINT: Dizziness. HISTORY OF PRESENT ILLNESS: Mrs. Irlanda Velazquez is a 76-year-old woman who was recently admitted to [facility] for symptoms of chest discomfort. During that admission, the patient was also noted to have bigeminy and some symptoms related to bradycardia. During that admission, the patient was started on medical therapy for her bigeminy and sent home. The patient states that for several weeks, she felt well. She still noticed some low heart rates on home monitoring, but on occasion her heart rate would be near 60. Yesterday however, while sitting and watching television, the patient had an episode of presyncope. The patient stated that her head felt foggy and her vision changed. She felt presyncopal but did not lose consciousness. The episode was quite disturbing to her and she contacted EMS. She admittedly was quite anxious when they arrived and was administered Ativan for her anxiety. She was brought to [facility] for an additional evaluation. At [facility], she was discovered to be in ventricular bigeminy but was otherwise hemodynamically stable. The patient states that she will have occasional episodes of what she describes as "foggy head." These are fairly rare. In general, she has been feeling well since her discharge with the exception of yesterday's episode. She is admittedly very sedentary and she is also admittedly very anxious. She did report some symptoms at nighttime recently where she felt as if she stopped breathing. This does not sound like true orthopnea or paroxysmal nocturnal dyspnea. She denies significant breathing difficulty. She has not had any recurrence of her chest pain. She has not noticed any worsening swelling in her lower extremities. Generally speaking, she is not aware of palpitations. PAST MEDICAL HISTORY: Significant for: 1. The aforementioned ventricular bigeminy. 2. Gastroesophageal reflux disease. 3. Allergic rhinitis. 4. Diverticulosis. 5. Hyperlipidemia. 6. Hypertension. 7. Hypothyroidism. 8. Osteoarthritis. 9. Garo syndrome. 10. Tinnitus. 11. Ulcerative colitis. PAST SURGICAL HISTORY: Significant for anterior colporrhaphy, anterior gastropexy for hiatal hernia, cataract surgery, hysterectomy, incisional hernia repair, oral surgery, total hip replacement, total knee replacement, umbilical hernia repair. OUTPATIENT MEDICATIONS: Include amiodarone, aspirin, gabapentin, levothyroxine, lisinopril, omeprazole, simvastatin. MEDICAL ALLERGIES: INCLUDE ATIVAN, CODEINE, DARVON, ERYTHROMYCIN, MORPHINE, OXYCODONE, PERCOCET, PERCODAN, PREDNISONE, TRAMADOL, AND VICODIN. MOST OF THESE APPEAR TO BE INTOLERANCES AND MANIFEST PRIMARILY BY NAUSEA. FAMILY HISTORY: Noncontributory for premature coronary artery disease. SOCIAL HISTORY: The patient is a lifelong nonsmoker. She denies significant alcohol use. She currently lives with her son. REVIEW OF SYSTEMS: A complete review of systems was performed and the pertinent positives noted in the history of present illness, the remainder being negative. PHYSICAL EXAMINATION: GENERAL: The patient does not appear to be in acute distress. She is a pleasant individual who is alert and oriented. Mood and affect appeared normal. She answered all questions appropriately. CURRENT VITAL SIGNS: Include blood pressure of 156/65 with a recorded pulse of 47. HEENT: Her sclerae are anicteric. Pupils equal, reactive to light and accommodation. Extraocular movements were intact. Palpation of submandibular region did not reveal any significant lymphadenopathy and the carotids were palpable bilaterally. I do not appreciate any bruits on auscultation. There is no evidence of jugular venous distention. Thyroid is not enlarged. NEUROLOGIC: Revealed her cranial nerves to be intact. LUNGS: Evaluation of both lungs reveal them to be clear. There were no rales, wheezes or rhonchi. She had normal respiratory effort without use of accessory muscles. CARDIAC: Examination revealed her to be in a regular rhythm. I did not appreciate any murmurs on examination. PMI was not markedly displaced on palpation. ABDOMEN: Soft and nontender. EXTREMITIES: Evaluation of both wrists revealed radial pulses that were equal in intensity. There is no evidence of cyanosis or clubbing. Evaluation of lower extremities did not reveal any significant peripheral edema. I did not appreciate any rashes on exam today. LABORATORY STUDIES: Obtained since admission include a white cell count of 4.6, hemoglobin of 13.3 and a platelet count of 186. Sodium is 144, potassium is 3.9, BUN was 14 and creatinine was 0.91. The patient did have a single view chest x-ray at the time of admission which did not reveal any evidence of active cardiopulmonary disease. Based on her symptoms at presentation, she also underwent a head CT which did not reveal any acute intracranial abnormality. A 12-lead EKG was also obtained at the time of admission which revealed her to be in sinus rhythm with ventricular bigeminy. During the patient's last admission, she did undergo stress echocardiography which did not reveal any evidence of inducible ischemia. She had preserved LV systolic function and mild mitral regurgitation. ASSESSMENT AND PLAN: Ventricular bigeminy: The patient continues to have ventricular bigeminy on telemetry. It is unclear whether the amiodarone therapy has had any significant impact on her ventricular ectopy. Many days she has no symptoms related to the arrhythmia. However, yesterday she did feel presyncopal and this may have been related to an effectively low heart rate. There is also a small possibility this represented a ventricular arrhythmia of longer duration. It should also be noted that the patient is very anxious and at times may have symptoms related to severe anxiety and panic attacks. She is a very sedentary individual and it is difficult to characterize any contribution of her arrhythmia to activity intolerance. She does describe some episodes of "foggy head" which may be related to mild hypoperfusion. At this point, it is doubtful whether medical therapy will have a significant impact on her arrhythmia. We did discuss options for catheter based treatment. 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 At this point, we have elected to simply monitor her rhythm and discussed the options for treatment with her primary assistant bookkeeper in order to determine. Amiodarone has been held currently due to some concerns over thyroid dysfunction with an elevated TSH. As it does not appear that amiodarone may have significant impact on her arrhythmia, this seems reasonable.
[2016-08-23] MEDS: SIMVASTATIN 5 MG TAB PO SCH (21:01)
[2016-08-23] MEDS: ENOXAPARIN 40 MG/0.4 ML SYR SC SCH (21:01)
[2016-08-24] VITALS (8 sets, daily range): BP systolic 127–147; BP diastolic 61–97; PULSE 48–66; TEMP 36.4–36.6; O2SAT 95–96
[2016-08-24] MEDS ORDERED: LEVOTHYROXINE 75 MCG TAB PO SCH (06:00)
[2016-08-24 07:37] LABS: BUN/CREATININE RATIO 14.2 (10-20); CALCIUM 8.9 mg/dl (8.5-10.1); CREATININE 1.1 mg/dl (0.60-1.20)
[2016-08-24] MEDS: OMEGA-3 (PURIFIED FISH OIL) 1 GM CAP PO SCH (08:04)
[2016-08-24] MEDS: DOCUSATE SODIUM 100 MG CAP PO SCH ×2 (08:05→21:00)
[2016-08-24] MEDS: PANTOprazole SOD 40 MG TAB PO SCH (08:05)
[2016-08-24] MEDS: CHOLECALCIFEROL 1000 INTER.UNIT TAB PO SCH ×2 (08:05→21:13)
[2016-08-24] MEDS: ASPIRIN 81 MG ECTAB PO SCH (08:05)
[2016-08-24] MEDS ORDERED: ESCITALOPRAM OXALATE 10 MG TAB PO SCH (09:45)
--- NOTE | 2016-08-24 11:35 | Hospitalist Progress Note ---
Hospitalist Progress Note Date of Service Aug 24, 2016. Subjective Pt evaluation today including: conversation w/ patient, conversation w/ family (daughter- at bedside ), physical exam, chart review, lab review, review of inpatient medication list Voiding: no voiding problems, no incontinence Patient states she is feeling well this AM. [place] a "gloomy" feeling when she woke up, but has since resolved- spoke w/ psych yesterday, going to f/u outpt and consider medications then Has not meet w/ cardiology yet today. Patient denies any fever, chills, sweats, lightheadedness, dizziness, vision changes, CP, palpitations, edema, SOB, wheezing, cough, abdominal pain, nausea, vomiting, diarrhea, urinary symptoms, melena, numbness/tingling, weakness, muscle/joint pain, anxiety/depression, active bleeding, or new skin discoloration/changes. Medications Current Inpatient Medications Medications (Trade) Dose Ordered Sig/Kee Route Start Time Stop Time Status Last Admin Dose Admin Enoxaparin Sodium (Lovenox Inj) 40 mg Q24H SC 08/22/16 21:00 09/21/16 20:59 08/23/16 21:01 40 MG Acetaminophen (Tylenol Tab) 650 mg Q4H PRN PO 08/22/16 16:45 09/21/16 16:44 Al Hydrox/Mg Hydrox/Simethicone (Maalox Max Susp) 15 ml Q4H PRN PO 08/22/16 16:45 09/21/16 16:44 Magnesium Hydroxide (Milk Of Magnesia Susp) 30 ml Q12H PRN PO 08/22/16 16:45 09/21/16 16:44 Ondansetron HCl (Zofran Inj) 4 mg Q6H PRN IV 08/22/16 16:45 09/21/16 16:44 Polyethylene (Miralax Powder Packet) 17 gm DAILY PRN PO 08/22/16 16:45 09/21/16 16:44 Aspirin (Ecotrin Tab) 81 mg DAILY PO 08/23/16 09:00 09/22/16 08:59 08/24/16 08:05 81 MG Cholecalciferol (Vitamin D Tab) 1,000 inter.unit BID PO 08/22/16 21:00 09/21/16 20:59 08/24/16 08:05 1,000 INTER.UNIT Docusate Sodium (coLACE CAP) 100 mg BID PO 08/22/16 21:00 09/21/16 20:59 08/24/16 08:05 100 MG Fish Oil ([place]-3 (Purified Fish Oil) Cap) 1 gm QAM PO 08/23/16 09:00 09/22/16 08:59 08/24/16 08:04 1 GM Gabapentin (Neurontin Cap) 300 mg TID PRN PO 08/22/16 17:00 09/21/16 16:59 Ibuprofen (Motrin Tab) 600 mg Q6H PRN PO 08/22/16 18:30 09/21/16 18:29 Levothyroxine Sodium (Synthroid Tab) 75 mcg Q2D@0600 PO 08/24/16 06:00 09/23/16 05:59 08/24/16 06:19 75 MCG Levothyroxine Sodium (Synthroid Tab) 88 mcg Q2D@0600 PO 08/23/16 06:00 09/22/16 05:59 08/23/16 06:05 88 MCG Simvastatin (Zocor Tab) 5 mg HS PO 08/22/16 21:00 09/21/16 20:59 08/23/16 21:01 5 MG Pantoprazole Sodium (Protonix Tab) 40 mg QAM PO 08/23/16 09:00 09/22/16 08:59 08/24/16 08:05 40 MG Miscellaneous (Iv Fluids Completed) 1 ea PRN PRN N/A 08/22/16 18:30 08/22/17 18:29 Objective Vital Signs Date Time Temp Pulse Resp B/P (MAP) Pulse Ox O2 Delivery O2 Flow Rate FiO2 08/24/16 07:29 36.5 48 16 136/82 (100) 95 Room Air 08/24/16 04:50 36.4 50 18 136/71 (92) 95 Room Air 08/24/16 04:00 Room Air 08/24/16 00:00 Room Air 08/24/16 00:00 36.6 66 12 127/61 (83) 96 08/23/16 20:00 97 Room Air 08/23/16 19:55 36.7 62 18 148/69 (95) 97 Room Air 08/23/16 16:00 96 Room Air 08/23/16 14:59 36.6 47 18 156/65 (95) 96 Room Air 08/23/16 12:20 Room Air 08/23/16 11:45 36.5 55 16 142/86 (104) 94 Room Air Physical Exam General Appearance: no apparent distress Eyes: normal inspection, PERRL ENT: hearing grossly normal Neck: supple Respiratory/Chest: lungs clear, no respiratory distress, no accessory muscle use Cardiovascular: + bradycardia, + pertinent finding (rhythm irregular ) Abdomen: normal bowel sounds, non tender, soft Extremities: no pedal edema, no calf tenderness Neurologic/Psychiatric: alert, normal mood/affect, oriented x 3 Skin: normal color, warm/dry, no rash Laboratory Results Last 24 Hours Test 08/23/16 18:28 08/24/16 06:41 Bedside Glucose 100 mg/dl Sodium Level 144 mmol/L Potassium Level 4.0 mmol/L Chloride Level 108 mmol/L Carbon Dioxide Level 27 mmol/L Anion Gap 9.0 mmol/L Blood Urea Nitrogen 16 mg/dl Creatinine 1.10 mg/dl Est Creatinine Clear Calc Drug Dose 58.4 ml/min Estimated GFR () 56.5 Estimated GFR (Non- 48.7 BUN/Creatinine Ratio 14.2 Random Glucose 90 mg/dl Calcium Level 8.9 mg/dl Assessment and Plan 76F with a PMHx of HTN, HLD, hypothyroidism, bigeminal pulse who was [place] [facility] [place] presents with another near syncopial event. EKG shows bigeminal pulse. Pt is currently taking 300mg BID Amiodarone and reports side effects include tremors, anxiety, staying awake at night. Pt' s son is reporting pt has a new onset depressed affect on Amiodarone. CT head pending. Near syncopal episode, likely secondary to PVCs and frequent bigeminal pulses: - Admit to tele for cardiac monitoring- no acute events - Cardiac enzymes negative x2 - Head CT- unremarkable - Lyme screen negative - ESR and CRP- unremarkable Bigeminal pulse/PVCs: - Amiodarone 300 mg BID held per cardiology recommendations - Continue Aspirin 81 mg daily - Consulted cardiology, appreciate recommendations Hypothyroidism: - TSH 7.3, T3 low and T4 WNL - Continue Synthroid 88 mcg Q2D and 75 mcg Q2D - Dr. Patel spoke w/ Endocrinology- ?euthyroid sick syndrome, continue current Synthroid dosage and f/u outpt w/ PCP and/or Endocrinology Anxiety/depression: - Consult psychiatry, appreciate recommendations -- f/u outpatient w/ Dr. Lynch at [facility] and consider medications then GERD: Continue Protonix HLD: Zocor 5 mg HS GI Prophylaxis: Protonix, Maalox PRN, IV Zofran PRN, Colace and/or Milk of Mag PRN DVT prophylaxis: Lovenox 40 mg SQ q24 hrs, ERNESTO and SCDs Code Status: LEVEL I, FULL Dispo: From home, lives w/ son- no discharge needs anticipated
--- NOTE | 2016-08-24 17:10 | DIAGNOSTIC IMAGING REPORT ---
BILATERAL CAROTID DOPPLER STUDY HISTORY: Mental status change "tunnel vision", "cloudy vision" COMPARISON: None. TECHNIQUE: Real-time, grayscale, and color Doppler sonography of the carotid arteries was performed. Imaging reviewed in the transverse and longitudinal planes. All measurements were calculated based on NASCET criteria. FINDINGS: Antegrade flow is seen in the bilateral vertebral arteries. The brachial pressures are hemodynamically similar. Minimal plaque formation bilaterally The peak systolic velocity within the right ICA is 67. The right systolic ratio is 1.08. The peak systolic velocity within the left ICA is 63. The left systolic ratio is 0.75. IMPRESSION: No hemodynamically significant stenosis seen within the carotid arteries. Minimal plaque formation bilaterally Electronically signed by: Francisco Escobar M.D. 08/24/2016 5:09 PM Dictated Date/Time: 08/24/2016 5:08 PM
--- NOTE | 2016-08-24 18:38 | DIAGNOSTIC IMAGING REPORT ---
Brain MRI WITHOUT CONTRAST HISTORY: Mental status change r/o cava TECHNIQUE: Multiplanar multisequence MRI of the brain was performed without the use of contrast. COMPARISON STUDY: CT examination same date. MRI 09/23/2014 FINDINGS: There are no areas of restricted diffusion to suggest acute infarction. The midline structures are intact. The paranasal sinuses are clear. The mastoid air cells are clear. The ventricles and sulci are within normal limits for age. There is no mass, hematoma, midline shift. The major vascular flow-voids at the skull base are well maintained. Moderate mucosal thickening left maxillary sinus IMPRESSION: 1. No acute ischemic insult. 2. Mild atrophy with moderate chronic small vessel change. 3. Left maxillary sinusitis. Electronically signed by: Francisco Escobar M.D. 08/24/2016 6:37 PM Dictated Date/Time: 08/24/2016 6:34 PM
--- NOTE | 2016-08-24 19:10 | CARDIOLOGY PROGRESS NOTE ---
DATE: 08/24/2016 SUBJECTIVE: This afternoon, Ms. Velazquez claims to have had a brief episode of presyncope. She states that she began to have some symptoms in her left arm and she began to get "foggy headed" and somewhat dizzy. These symptoms past without any particular intervention. She has otherwise been ambulatory and denied other symptoms. She is not currently aware of any palpitations. PHYSICAL EXAMINATION: GENERAL: She was alert and oriented, mood and affect appeared normal. She answered all questions appropriately. CURRENT VITAL SIGNS: Include blood pressure 147/97 with a pulse of 63. LUNGS: Clear. CARDIAC EXAMINATION: Revealed her to be in bigeminy. There were no murmurs appreciated. Evaluation of her telemetry reveals persistent bigeminy and frequent PVCs, but no more malignant arrhythmia such as ventricular tachycardia. LABORATORY STUDIES: Today included a sodium 144, potassium of 4.0, BUN was 16, and creatinine was 1.1. ASSESSMENT AND PLAN: Ventricular bigeminy. The patient continues to have frequent premature ventricular complexes and periods of bigeminy. No additional arrhythmias have been identified. Her amiodarone has been discontinued primarily due to its lack of efficacy, although she also has some thyroid derangements. Did have a discussion with the electrophysiology service at [facility] regarding the possibility of an ablation. At this point, it is not clear if the patient has symptoms associated with arrhythmia and she continues to have preserved left ventricular systolic function as such an ablation was deferred at this time. I appreciate the psychiatrist's evaluation and the possibility that the patient's anxiety contributes to her symptoms. At this point, we have not found a good correlation between an arrhythmia and her periodic episodes of presyncope. I think continue monitoring on the inpatient setting and possibly an outpatient monitor would be most medications in determining whether more aggressive therapy such as a catheter ablation is warranted. ROSA MARIA
[2016-08-24] MEDS: SIMVASTATIN 5 MG TAB PO SCH (21:13)
[2016-08-24] MEDS: ENOXAPARIN 40 MG/0.4 ML SYR SC SCH (21:13)
[2016-08-25 05:15] VITALS: BP 138/76; PULSE 62; TEMP 36.3; O2SAT 94
[2016-08-25] MEDS: LEVOTHYROXINE 88 MCG TAB PO SCH (06:25)
[2016-08-25 07:47] LABS: BUN/CREATININE RATIO 13.5 (10-20); CALCIUM 9.2 mg/dl (8.5-10.1); CREATININE 1.1 mg/dl (0.60-1.20); POTASSIUM 3.6 mmol/L (3.5-5.1)
[2016-08-25 07:58] VITALS: BP 131/71; PULSE 47; TEMP 36.4; O2SAT 96
[2016-08-25] MEDS: DOCUSATE SODIUM 100 MG CAP PO SCH (08:08)
[2016-08-25] MEDS: CHOLECALCIFEROL 1000 INTER.UNIT TAB PO SCH (08:08)
[2016-08-25] MEDS: ASPIRIN 81 MG ECTAB PO SCH (08:09)
[2016-08-25] MEDS: OMEGA-3 (PURIFIED FISH OIL) 1 GM CAP PO SCH (08:09)
[2016-08-25] MEDS: PANTOprazole SOD 40 MG TAB PO SCH (08:09)
--- NOTE | 2016-08-25 10:00 | Cardiology Follow-Up ---
Subjective Date of Service: Aug 25, 2016. Pt evaluation today including: conversation w/ patient, physical exam, lab review, review of studies, review of inpatient medication list History of Present Illness Feels well today, no further episodes today. She did have an episode yesterday at around 3 in the afternoon, evidently her blood sugar was checked, her blood pressure was not low, she was in ventricular bigeminy (as she often is) but the cause of the symptoms was not immediately obvious. Social History Smoking Status: Never Smoker History of Alcohol Use: No Review of Systems Respiratory: No shortness of breath Cardiac: + problem reported, No chest pain Objective Vital Signs Past 12 Hours Date Time Temp Pulse Resp B/P (MAP) Pulse Ox O2 Delivery O2 Flow Rate FiO2 08/25/16 07:58 36.4 47 20 131/71 (91) 96 Room Air 08/25/16 05:15 36.3 62 20 138/76 (96) 94 Room Air 08/25/16 04:00 Room Air 08/25/16 00:01 Room Air 08/24/16 23:58 36.6 59 20 141/78 (99) 96 Room Air Last Recorded Weight-Kilograms: 109.800 Physical Exam Lungs: Auscultation: breath sounds normal Cardiovascular: Heart Auscultation: RRR, no murmurs Data Laboratory Results: Last 24 Hours Test 08/24/16 15:16 08/25/16 06:39 Bedside Glucose 117 mg/dl Sodium Level 142 mmol/L Potassium Level 3.6 mmol/L Chloride Level 107 mmol/L Carbon Dioxide Level 28 mmol/L Anion Gap 7.0 mmol/L Blood Urea Nitrogen 15 mg/dl Creatinine 1.10 mg/dl Est Creatinine Clear Calc Drug Dose 58.4 ml/min Estimated GFR () 56.5 Estimated GFR (Non- 48.7 BUN/Creatinine Ratio 13.5 Random Glucose 86 mg/dl Calcium Level 9.2 mg/dl Telemetry reviewed: Sinus rhythm, frequent episodes of ventricular bigeminy, no runs of tachycardia Assessment and Plan #1. Presyncope: The cause remains unclear, she did have an episode yesterday where she did have her ventricular bigeminy but that is a very common arrhythmia in her case, her blood pressure was not low and her blood sugar was low. The cause these episodes therefore remains uncertain, whether a combination of bigeminy and something else causes symptoms or if they were unrelated to her rhythm is unclear. #2. Ventricular bigeminy: So far her ventricular arrhythmias been very resistant to treatment, she has failed beta-blockade, flecainide and amiodarone. We could continue amiodarone in hopes that a longer loading phase will result in better suppression but since it has been virtually nothing I would agree with discontinuation of it. We can consider ablation but I'm not convinced would change her symptoms but I think it would be worth having her see one of the electrophysiologists from [place] and I can make those arrangements as an outpatient. From my standpoint she can go home and I will arrange follow-up. Thank you for allowing me to participate in her care.
[2016-08-25 11:44] VITALS: BP 144/67; PULSE 47; TEMP 36.7; O2SAT 97
[2016-08-25 15:18] VITALS: BP 118/68; PULSE 76; TEMP 36.4; O2SAT 92
--- NOTE | 2016-08-25 15:58 | Discharge Instructions ---
Discharge Instructions Date of Service Aug 25, 2016. Admission Reason for Admission: Syncope Discharge Discharge Diagnosis / Problem: Presyncope: Discharge Goals Goal(s): Decrease discomfort, Improve function, Increase independence, Improve disease control, Improve nutritional status, Learn about illness, Diagnostic testing, Therapeutic intervention, Prevent Disease Progression, Specific goals Activity Recommendations Activity Limitations: resume your previous activity . 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 - call your primary care physician OR go to local emergency room if has any fever/chill, chest pain, shortness of breathing, nausea/vomiting/abdominal pain , facial droop/slurry speech/local weakness, or if has any questions. - fall precaution - diet as instructed - you need to follow up with your subspecialist - you should understand that it is important to follow up the above instruction , and "not following the above instruction" may cause delayed or missed care of your medical conditions which may cause permanent organ damage and even . Current Hospital Diet Patient's current hospital diet: AHA Diet (Heart Healthy) Discharge Diet Recommended Diet: Regular Diet Procedures Procedures Performed: No Pending Studies Studies pending at discharge: no Laboratory Results Hemoglobin A1c Test 07/27/16 07:58 Range/Units Estimated Average Glucose 114 mg/dl Hemoglobin A1c 5.6 4.5-5.6 % Lipid Panel Test 07/27/16 07:58 Range/Units Triglycerides Level 58 0-150 mg/dl Cholesterol Level 173 0-200 mg/dl HDL Cholesterol 73 mg/dl Cholesterol/HDL Ratio 2.4 LDL Cholesterol, Calculated 88 mg/dl Medical Emergencies . Who to Call and When: Medical Emergencies: If at any time you feel your situation is an emergency, please call 911 immediately. . Non-Emergent Contact Non-Emergency issues call your: Primary Care Provider, Tension Worker . . "Provider Documentation" section prepared by Chi Patel. . VTE Core Measure Inpt VTE Proph given/why not?: Unfractionated heparin SQ
--- NOTE | 2016-08-25 16:08 | Discharge Summary ---
Discharge Summary Date of Service Aug 25, 2016. Discharge Summary Admission Date: Aug 22, 2016 at 16:57 Discharge Date: Aug 25, 2016 Discharge Disposition: Home Principal Diagnosis: near syncope, possible arrythmia Problems/Secondary Diagnoses: Near syncopal episode, likely secondary to PVCs and frequent bigeminal pulses: Hypothyroidism: Anxiety/depression: GERD: Continue Protonix Immunizations: Have You Had Influenza Vaccine: Yes Influenza Vaccine Date: Nov 13, 2014 History of Tetanus Vaccine?: Unknown Tetanus Immunization Date: Jun 29, 2009 History of Pneumococcal: Yes Pneumococcal Date: Aug 26, 2014 History of Hepatitis B Vaccine: Unknown Procedures: No Consultations: Laboratory Worker Medication Reconciliation Continued Medications: Acetaminophen (Tylenol) 500 Mg Tab 500 MG PO UD PRN for Pain Aspirin (Aspirin 81) 81 Mg Tab 81 MG PO DAILY Cholecalciferol (Vitamin D 1000 Unit) 1,000 Unit Cap 1000 INTER.UNIT PO BID, CAP Docusate Sodium (Docusate Sodium) 100 Mg Cap 100 MG PO BID for 30 Days, #60 CAP Fish Oil ([place]-3) 1 Ea Cap 1200 MG PO QAM, 0 Refills Flaxseed (Linseed) (Flax Oil) 1 Oil Oil 1200 MG PO HS Gabapentin (Gabapentin) 300 Mg Cap 300 MG PO TID PRN for LEG PAIN, #90 Ibuprofen (Advil) 200 Mg Tab 200 MG PO DIRECTED PRN for Pain, TAB Levothyroxine Sodium (Synthroid) 88 Mcg Tab 88 MCG PO Q2D, #14 TAB Levothyroxine Sodium (Synthroid) 75 Mcg Tab 75 MCG PO Q2D for 30 Days, TAB alternating with th 88 mcg dose on the other days Multivitamins (Daily Darnell) 1 Tab Tab 2 TAB PO DAILY Omeprazole (Prilosec) 40 Mg Cap 40 MG PO DAILY, #30 Simvastatin (Zocor) 5 Mg Tab 5 MG PO HS, TAB [Iron] () 65 MG PO DAILY Discontinued Medications: Amiodarone Hcl (Cordarone) 200 Mg Tab 300 MG PO BID, TAB HAS 1 MORE WEEK TO GO ON THIS STRENGTH, 1 TAB BID Discharge Exam Doing well, up to the chair no complaint Review of Systems: Constitutional: No fever, No chills, No sweats, No weight loss, No weakness , No fatigue, No problem reported Eyes: No worsening of vision, No eye pain, No redness, No discharge, No diplopia, No problem reported ENT: No hearing loss, No unusual epistaxis, No nasal symptoms, No sore throat, No tinnitus, No dental problems, No trouble swallowing, No problem reported Respiratory: No cough, No sputum, No wheezing, No shortness of breath, No dyspnea on exertion, No dyspnea at rest, No hemoptysis, No problem reported Cardiovascular: No chest pain, No orthopnea, No PND, No edema, No claudication, No palpitations, No problem reported Abdomen: No pain, No nausea, No vomiting, No diarrhea, No constipation, No GI bleeding, No problem reported Musculoskeletal: No joint pain, No muscle pain, No swelling, No calf pain, No problem reported Genitourinary - Female: No dysuria, No urinary frequency, No urinary urgency , No urinary incontinence, No urinary retention, No hematuria, No dysmenorrhea, No menorrhagia, No metrorrhagia, No rash, No vaginal bleeding, No vaginal discharge, No vaginal itching, No vulvodynia, No , No problem reported Psychiatric: No depression symptoms, No anhedonism, No anxiety, No insomnia , No substance abuse, No problem reported Endocrine: No fatigue, No excessive thirst, No excessive urination, No problem reported Hematologic / Lymphatic: No abnormal bleeding/bruising, No clotting problems , No swollen lymph nodes, No night sweats, No problem reported Integumentary: No rash, No itch, No new/changing skin lesions, No color change, No bleeding, No problem reported Physical Exam: General Appearance: WD/WN, no apparent distress Eyes: normal inspection, PERRL ENT: normal ENT inspection, hearing grossly normal Neck: supple, no adenopathy Respiratory/Chest: chest non-tender, normal breath sounds, + decreased breath sounds Cardiovascular: regular rate, rhythm, no edema, no gallop Abdomen / GI: normal bowel sounds, non tender, soft Extremities: normal inspection, no calf tenderness, normal capillary refill Neurologic/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 EKG shows bigeminal pulse. Prior to admission patient was taking 300mg BID Amiodarone and reports side effects include tremors, anxiety, staying awake at night. Pt's son is reporting pt has a new onset depressed affect on Amiodarone. CT head was unremarkable Near syncopal episode, likely secondary to PVCs and frequent bigeminal pulses: -Continue to tele for cardiac monitoring- no acute events - Cardiac enzymes negative x2 - Head CT- unremarkable - Lyme screen negative - ESR and CRP- unremarkable Bigeminal pulse/PVCs: - Amiodarone 300 mg BID held per cardiology recommendations - Continue Aspirin 81 mg daily - Consulted cardiology, appreciate recommendations - Dr. Ramirez saw pt, he feel okay to discontinue amiodarone, outpatient follow -up, and arrange for EP studies in [facility] there is one episodes of tunnel vision and near syncope in yesterday Brain MRI and carotid Doppler ultrasound study was done, and was not remarkable Hypothyroidism: - TSH 7.3, T3 low and T4 WNL - Continue Synthroid 88 mcg Q2D and 75 mcg Q2D - I spoke w/ Typist- ?euthyroid sick syndrome, continue current Synthroid dosage and f/u outpt w/ PCP and/or Endocrinology Anxiety/depression: - Consult psychiatry, appreciate recommendations -- f/u outpatient w/ Dr. Lynch at [facility] and consider medications then GERD: Continue Protonix HLD: Zocor 5 mg HS Code Status: LEVEL I, FULL Dispo: From home, lives w/ son- no discharge needs anticipated, patient is clear to discharge home from cardiology service. 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 - call your primary care physician OR go to local emergency room if has any fever/chill, chest pain, shortness of breathing, nausea/vomiting/abdominal pain , facial droop/slurry speech/local weakness, or if has any questions. - fall precaution - diet as instructed - you need to follow up with your subspecialist - you should understand that it is important to follow up the above instruction , and "not following the above instruction" may cause delayed or missed care of your medical conditions which may cause permanent organ damage and even . Total Time Spent: Greater than 30 minutes This includes examination of the patient, discharge planning, medication reconciliation, and communication with other providers. Discharge Instructions Please refer to the electronic Patient Visit Report (Discharge Instructions) for additional information. Additional Copies To Ney Dove M.D.; Bronwyn Garcia MD
[2016-08-25 16:18] VITALS: BP 118/68; PULSE 76; TEMP 36.4; O2SAT 92
== END 2016-08-25 17:00 | disposition home or self-care (01) ==
LOC: EDBD 15:29 → C.EDB 15:30 → C.MED 16:57 → ENRESERV 17:14 → C.MED 08-23 13:09
PROVIDERS: ADMIT Internal Medicine; ATTEND Hospitalist
DX: R55 Syncope and collapse (principal); I49.3 Ventricular premature depolarization; E03.9 Hypothyroidism, unspecified; F32.9 Major depressive disorder, single episode, unspecified; K21.9 Gastro-esophageal reflux disease without esophagitis; M19.90 Unspecified osteoarthritis, unspecified site; E66.01 Morbid (severe) obesity due to excess calories; M16.11 Unilateral primary osteoarthritis, right hip; I10 Essential (primary) hypertension; K51.90 Ulcerative colitis, unspecified, without complications; K44.9 Diaphragmatic hernia without obstruction or gangrene; E78.5 Hyperlipidemia, unspecified; Z86.718 Personal history of other venous thrombosis and embolism; Z86.711 Personal history of pulmonary embolism; Z96.659 Presence of unspecified artificial knee joint; Z79.82 Long term (current) use of aspirin; Z82.49 Family history of ischemic heart disease and other diseases of the circulatory system; Z82.3 Family history of stroke

== ENCOUNTER 2016-09-10 04:28 | Emergency (ER) | payer OTHER, MEDICARE ==
[~2016-09-10] VITALS: Ht 177.8 cm; Wt 109.5 kg
[~2016-09-10 04:28] MED LIST changes: -CRD200 PO; -LISI5TAB PO
[2016-09-10 04:31] VITALS: TEMP 36.4; Ht 177.8 cm; Wt 109.5 kg
[2016-09-10] MEDS ORDERED: CHOLESTYRAMINE LIGHT 4 GM PKT PO STA (04:59)
[2016-09-10] MEDS ORDERED: SODIUM CHLORIDE 0.9% 1000ML 1,000 ML IV STA (04:59)
--- NOTE | 2016-09-10 05:01 | EMERGENCY ROOM VISIT NOTE ---
History Report prepared by Missy: Nicolasa Rey Under the Supervision of: Dr. Jamal Luong M.D. First contact with patient: 04:45 Chief Complaint: DIARRHEA Stated Complaint: DIARRHEA History of Present Illness The patient is a 76 year old female who presents to the Emergency Room with complaints of constant diarrhea starting two days ago around dinner time. The patient states that is started after she ate and was occurring about every half an hour. She reports that yesterday morning it cleared up, so she thought nothing of it. The patient states that the diarrhea started again yesterday afternoon. She notes that she took Imodium which made it worse. She states that she decided to come to the ED because she was experiencing abdominal pain, but this pain has since subsided. The patient complains of some nausea. The patient denies any use of antibiotics recently. She notes that she has had a recent medication change and is worried that she may be dehydrated with how many bowel movements she has been having. Source of History: patient Onset: two days ago Position: other (global) Quality: other (global) Timing: constant Modifying Factors (Worsening): other (Imodium) Associated Symptoms: + nausea, + abdominal pain Review of Systems See HPI for pertinent positives & negatives. A total of 10 systems reviewed and were otherwise negative. Past Medical & Surgical Medical Problems: (1) Benign hypertension (2) DVT (deep venous thrombosis) (3) Gastroesophageal reflux disease (4) Hiatal hernia (5) Hyperlipidemia (6) Low back pain with sciatica (7) Pulmonary embolism (8) Right Hip DJD (9) Ventricular bigeminy Surgical Problems: (1) S/P knee replacement Family History No significant family history Social History Smoking Status: Never Smoker Alcohol Use: occasionally Drug Use: none Marital Status: Housing Status: lives with family Occupation Status: retired Current/Historical Medications Scheduled Aspirin (Aspirin 81), 81 MG PO DAILY Buspirone Hcl (Buspirone Hcl), 7.5 MG PO BID Cholecalciferol (Vitamin D 1000 Unit), 1,000 INTER.UNIT PO BID Docusate Sodium (Docusate Sodium), 100 MG PO BID Fish Oil ([place]-3), 1,200 MG PO QAM Flaxseed (Linseed) (Flax Oil), 1,200 MG PO HS Levothyroxine Sodium (Levothyroxine Sodium), 88 MCG PO Q2D Levothyroxine Sodium (Levothyroxine Sodium), 75 MCG PO Q2D Multivitamins (Daily Darnell), 2 TAB PO DAILY Omeprazole (Prilosec), 40 MG PO DAILY Ondasetron Odt (Zofran Odt), 4 MG SL Q6H Simvastatin (Zocor), 5 MG PO HS [Iron], 65 MG PO DAILY Scheduled PRN Acetaminophen (Tylenol), 500 MG PO UD PRN for Pain Gabapentin (Gabapentin), 300 MG PO TID PRN for LEG PAIN Ibuprofen (Advil), 200 MG PO DIRECTED PRN for Pain Allergies Coded Allergies: Adhesives (Verified Allergy, Unknown, REDNESS FROM EKG PATCHES, 09/10/16) Codeine (Verified Allergy, Unknown, DOPEY, 09/10/16) Lorazepam (Verified Allergy, Unknown, NAUSEA, 09/10/16) Oxycodone (Verified Allergy, Unknown, NAUSEA AND VOMITING, 09/10/16) POLLEN (Verified Allergy, Unknown, EYES AND THROAT ITCHY, 09/10/16) Propoxyphene (Verified Allergy, Unknown, nausea, 09/10/16) N/V--NEARLY COMATOSE? Erythromycin (Verified Adverse Reaction, Unknown, NAUSEA, 09/10/16) Morphine (Verified Adverse Reaction, Unknown, HALLUCINATIONS, 09/10/16) Prednisone (Verified Adverse Reaction, Unknown, "High dose prednisone" -- extreme anxiety, 09/10/16) Tramadol (Verified Adverse Reaction, Unknown, "loopy", 09/10/16) Physical Exam Vital Signs Date Time Temp Pulse Resp B/P (MAP) Pulse Ox O2 Delivery O2 Flow Rate FiO2 09/10/16 06:20 58 20 141/76 95 Room Air 09/10/16 05:27 62 09/10/16 05:26 62 09/10/16 05:19 65 20 167/62 96 Room Air 09/10/16 04:31 36.4 52 20 165/96 96 Room Air Physical Exam GENERAL: Patient is a healthy-appearing well-nourished HEAD: Normocephalic atraumatic EYES: Ocular movements intact pupils equal and react to light OROPHARYNX mucous membranes are moist no exudates present no erythema or edema present NECK: Supple no nuchal rigidity CHEST: Good equal expansion LUNGS: Clear and equal to auscultation CARDIAC: Normal S1 and S2 ABDOMEN: Soft nontender no guarding BACK: No CVA tenderness EXTREMITIES: No pain upon palpation normal muscle strength in all groups no clubbing cyanosis or edema NEURO: Patient is following commands and answering questions appropriately. Alert and oriented x3 Cranial Nerves 2-12 grossly intact Medical Decision & Procedures Laboratory Results 09/10/16 04:50 Red Blood Count 4.23, Mean Corpuscular Volume 97.2, Mean Corpuscular Hemoglobin 32.2, Mean Corpuscular Hemoglobin Concent 33.1, Mean Platelet Volume 10.9, Neutrophils (%) (Auto) 51.5, Lymphocytes (%) (Auto) 31.3, Monocytes (%) (Auto) 10.9, Eosinophils (%) (Auto) 5.9, Basophils (%) (Auto) 0.2, Neutrophils # (Auto ) 3.08, Lymphocytes # (Auto) 1.87, Monocytes # (Auto) 0.65, Eosinophils # (Auto ) 0.35, Basophils # (Auto) 0.01 09/10/16 04:50 Test 09/10/16 04:50 09/10/16 05:15 White Blood Count 5.97 K/uL (4.8-10.8) Red Blood Count 4.23 M/uL (4.2-5.4) Hemoglobin 13.6 g/dL (12.0-16.0) Hematocrit 41.1 % (37-47) Mean Corpuscular Volume 97.2 fL (80-100) Mean Corpuscular Hemoglobin 32.2 pg (25-34) Mean Corpuscular Hemoglobin Concent 33.1 g/dl (32-36) Platelet Count 194 K/uL (130-400) Mean Platelet Volume 10.9 fL (7.4-10.4) Neutrophils (%) (Auto) 51.5 % Lymphocytes (%) (Auto) 31.3 % Monocytes (%) (Auto) 10.9 % Eosinophils (%) (Auto) 5.9 % Basophils (%) (Auto) 0.2 % Neutrophils # (Auto) 3.08 K/uL (1.4-6.5) Lymphocytes # (Auto) 1.87 K/uL (1.2-3.4) Monocytes # (Auto) 0.65 K/uL (0.11-0.59) Eosinophils # (Auto) 0.35 K/uL (0-0.5) Basophils # (Auto) 0.01 K/uL (0-0.2) RDW Standard Deviation 48.5 fL (36.4-46.3) RDW Coefficient of Variation 13.6 % (11.5-14.5) Immature Granulocyte % (Auto) 0.2 % Immature Granulocyte # (Auto) 0.01 K/uL (0.00-0.02) Anion Gap 8.0 mmol/L (3-11) Est Creatinine Clear Calc Drug Dose 71.3 ml/min Estimated GFR () 72.0 Estimated GFR (Non- 62.1 BUN/Creatinine Ratio 16.9 (10-20) Calcium Level 8.8 mg/dl (8.5-10.1) Total Bilirubin 0.6 mg/dl (0.2-1) Direct Bilirubin 0.2 mg/dl (0-0.2) Aspartate Amino Transf (AST/SGOT) 22 U/L (15-37) Alanine Aminotransferase (ALT/SGPT) 28 U/L (12-78) Alkaline Phosphatase 65 U/L (45-117) Total Protein 6.6 gm/dl (6.4-8.2) Albumin 3.4 gm/dl (3.4-5.0) Lipase 187 U/L (73-393) Urine Color YELLOW Urine Appearance CLEAR (CLEAR) Urine pH 5.0 (4.5-7.5) Urine Specific [place] 1.020 (1.000-1.030) Urine Protein NEG (NEG) Urine Glucose (UA) NEG (NEG) Urine Ketones NEG (NEG) Urine Occult Blood NEG (NEG) Urine Nitrite NEG (NEG) Urine Bilirubin NEG (NEG) Urine Urobilinogen NEG (NEG) Urine Leukocyte Esterase MODERATE (NEG) Urine WBC (Auto) 10-30 /hpf (0-5) Urine RBC (Auto) 0-4 /hpf (0-4) Urine Hyaline Casts (Auto) 1-5 /lpf (0-5) Urine Epithelial Cells (Auto) 20-30 /lpf (0-5) Urine Bacteria (Auto) NEG (NEG) Labs reviewed by ED physician. Medications Administered Medications (Trade) Dose Ordered Sig/Kee Route Start Time Stop Time Status Last Admin Dose Admin Cholestyramine Resin (Questran Powder Light) 4 gm NOW STAT PO 09/10/16 04:59 09/10/16 05:00 DC 09/10/16 05:12 4 GM Sodium Chloride 1,000 ml @ 999 mls/hr Q1H1M STAT IV 09/10/16 04:59 09/10/16 05:59 DC 09/10/16 05:12 999 MLS/HR ED Course 0449: Past medical records reviewed. The patient was evaluated in room B3B. A complete history and physical examination was performed. 0459: Ordered NSS 1000 ml @ 999 mls/hr IV, Cholestyramine Resin 4 gm PO. 0555: I reevaluated the patient and she is doing fine. 0615: Upon reexamination the patient is resting comfortably. I discussed results and treatment plan with the patient. She verbalizes agreement and understanding. The patient is ready for discharge. Medical Decision Medication Reconciliation: I attest that I have personally reviewed the patient' s current medication list Blood Pressure Screening: Patient was found to have an elevated blood pressure and was referred to their primary care doctor for recheck and further treatment Differential diagnosis: Etiologies such as appendicitis, diverticulitis, PUD, biliary pathology, UTI, pancreatitis, obstruction, mesenteric ischemia, aortic pathology, infections, inflammatory bowel disease, renal colic, as well as others were entertained. This is a 76-year-old female who presents emergency department complaining of diarrhea. Serial abdominal examinations were performed on the patient in the emergency department in no time did she exhibit a surgical abdomen. I will note that the patient spent a total of 3 hours in the emergency department and at no time was she able to supply a stool sample. She does not have an elevation in her white blood count cell count and is not dehydrated. An IV was established, patient given normal saline bolus. She was given cholestyramine for the diarrhea. I stressed the need to take probiotics for the diarrhea. The patient was given a prescription for she can return with a stool sample. Patient was in agreement with the treatment plan. Impression Primary Impression: Diarrhea Scribe Attestation The scribe's documentation has been prepared under my direction and personally reviewed by me in its entirety. I confirm that the note above accurately reflects all work, treatment, procedures, and medical decision making performed by me. Departure Information Dispostion Home / Self-Care Prescriptions Ondasetron Odt (ZOFRAN ODT) 4 Mg Tab 4 MG SL Q6H for Nausea, #6 TAB Prov: Jamal Luong MD 09/10/16 Referrals Aisha Matthew DO (PCP) Forms HOME CARE DOCUMENTATION FORM, IMPORTANT VISIT INFORMATION, WORK / SCHOOL INSTRUCTIONS Patient Instructions My [facility] Additional Instructions You were found to have an elevated blood pressure today (>120 sytolic or >90 diastolic). Per medicare guidelines, you need to follow up with this blood pressure screening with your Primary Care Physician (PCP). For a new PCP call [phone]. Take probiotic yogurt for diarrhea Culture results are usually available in approx 48 hours You have been examined and treated today on an emergency basis only. This is not a substitute for, or an effort to provide, complete comprehensive medical care. It is impossible to recognize and treat all injuries or illnesses in a single emergency department visit. It is therefore important that you follow up closely with Dr Matthew. Call as soon as possible for an appointment. Thank you for your time and consideration. I look forward to speaking with you again soon. Please don't hesitate to call us if you have any questions. Problem Qualifiers Primary Impression: Diarrhea Diarrhea type: unspecified type Qualified Codes: R19.7 - Diarrhea, unspecified
[2016-09-10] MEDS ORDERED: DOCU100C31 PO (05:02)
[2016-09-10] MEDS ORDERED: LEVO88TA3 PO (05:05)
[2016-09-10] MEDS ORDERED: LEVO75TA5 PO (05:07)
[2016-09-10] MEDS ORDERED: BUSP5TAB59 PO (05:10)
[2016-09-10 05:13] LABS: BASO % 0.2 %; BASO ABS # 0.01 K/uL (0-0.2); COMPLETE YES; EOS % 5.9 %; HEMATOCRIT 41.1 % (37-47); IG% 0.2 %; LYMPH % 31.3 %; LYMPH ABS # 1.87 K/uL (1.2-3.4); MEAN CELL VOLUME 97.2 fL (80-100); MEAN CORPUSCULAR HEMOGLOBIN 32.2 pg (25-34); MEAN CORPUSCULAR HGB CONC 33.1 g/dl (32-36); MEAN PLATELET VOLUME 10.9 fL (7.4-10.4); MONO % 10.9 %; NEUT % 51.5 %; PLATELET COUNT 194 K/uL (130-400); RED BLOOD COUNT 4.23 M/uL (4.2-5.4); WHITE BLOOD COUNT 5.97 K/uL (4.8-10.8)
[2016-09-10 05:25] LABS: URINE APPEARANCE CLEAR (CLEAR); URINE BILIRUBIN NEG (NEG); URINE COLOR YELLOW; URINE EPITHELIAL CELL AUTO 20-30 /lpf (0-5); URINE NITRITE NEG (NEG); UROBILINOGEN NEG (NEG)
[2016-09-10 05:26] LABS: BUN/CREATININE RATIO 16.9 (10-20); CALCIUM 8.8 mg/dl (8.5-10.1); CREATININE 0.9 mg/dl (0.60-1.20); POTASSIUM 3.5 mmol/L (3.5-5.1)
[2016-09-10 05:36] LABS: MANUAL MICROSCOPIC REQUIRED? NO; REVIEW REQ? NO
[2016-09-10 06:20] VITALS: BP 141/76; PULSE 58; O2SAT 95
[2016-09-10] MEDS ORDERED: ONDA4TAB10 SL (06:21)
== END 2016-09-10 06:41 | disposition home or self-care (01) ==
LOC: C.EDB 04:29
DX: R19.7 Diarrhea, unspecified (principal); I10 Essential (primary) hypertension; Z86.718 Personal history of other venous thrombosis and embolism; K21.9 Gastro-esophageal reflux disease without esophagitis; E78.5 Hyperlipidemia, unspecified; M54.40 Lumbago with sciatica, unspecified side; Z86.711 Personal history of pulmonary embolism; M16.11 Unilateral primary osteoarthritis, right hip; Z79.82 Long term (current) use of aspirin; Z79.899 Other long term (current) drug therapy

== ENCOUNTER → 2016-09-11 | Outpatient (CLI) | payer OTHER, MEDICARE ==
[~2016-09-11] MED LIST changes: +BUSP5TAB59 PO; -CLC100 PO; +DOCU100C31 PO; -LEVO75TA PO; +LEVO75TA5 PO; +LEVO88TA3 PO; +ONDA4TAB10 SL; +POLY335019 PO; +SODIENE PR; -SYN88 PO
[2016-09-11 18:48] LABS: URINE APPEARANCE CLEAR (CLEAR); URINE BILIRUBIN NEG (NEG); URINE COLOR YELLOW; URINE EPITHELIAL CELL AUTO 0-5 /lpf (0-5); URINE NITRITE NEG (NEG); URINE SPECIFIC GRAVITY 1.015 (1.000-1.030); UROBILINOGEN NEG (NEG)
[2016-09-11 18:49] LABS: MANUAL MICROSCOPIC REQUIRED? NO; REVIEW REQ? NO
== END | disposition home or self-care (01) ==
LOC: C.LABSPEC 17:15
PROVIDERS: ATTEND Nurse Practitioner Family
DX: R39.9 Unspecified symptoms and signs involving the genitourinary system (principal)

== ENCOUNTER 2016-09-17 05:46 | Emergency (ER) | payer OTHER, MEDICARE ==
[~2016-09-17] VITALS: Ht 177.8 cm; Wt 108.5 kg
[~2016-09-17 05:46] MED LIST changes: -POLY335019 PO; -SODIENE PR
[2016-09-17 05:49] VITALS: TEMP 36.7; Ht 177.8 cm; Wt 108.5 kg
--- NOTE | 2016-09-17 06:22 | EMERGENCY ROOM VISIT NOTE ---
History Report prepared by Missy: Radha Zelaya Under the Supervision of: Dr. Humberto Yuen D.O. First contact with patient: 05:56 Chief Complaint: CONSTIPATION Stated Complaint: CONSTIPATION,STOMACH AND BACK PAIN Nursing Triage Summary: one week ago, severe diarrhea, was seen here for treatment. since being treated , has not had bowel movement. has tried fleet enema at home. pain in lower abd and lower back History of Present Illness The patient is a 76 year old female who presents to the Emergency Room with complaints of persistent constipation for the past week. The patient was seen in the ED 1 week ago for diarrhea. Since then, she has not had any further diarrhea. The day after her ED visit, she was started on ciprofloxacin by her PCP for a UTI. Since then, she has not had any bowel movements. She reports nausea, abdominal pain, and back pain. She denies any vomiting. She has a history of constipation and normally takes Dulcolax, but she has not had any relief. She tried a fleet enema yesterday and drank Miralax to no relief. She has not followed with her PCP for constipation. Source of History: patient Onset: 1 week Position: other (global) Quality: other (constipation) Timing: other (persistent) Associated Symptoms: + nausea, + abdominal pain, + back pain, No vomiting Review of Systems See HPI for pertinent positives & negatives. A total of 10 systems reviewed and were otherwise negative. Past Medical & Surgical Medical Problems: (1) Benign hypertension (2) DVT (deep venous thrombosis) (3) Gastroesophageal reflux disease (4) Hiatal hernia (5) Hyperlipidemia (6) Low back pain with sciatica (7) Pulmonary embolism (8) Right Hip DJD (9) Ventricular bigeminy Surgical Problems: (1) S/P knee replacement Family History No significant family history Social History Smoking Status: Never Smoker Alcohol Use: occasionally Drug Use: none Marital Status: Housing Status: lives with family Occupation Status: retired Current/Historical Medications Scheduled Aspirin (Aspirin 81), 81 MG PO DAILY Buspirone Hcl (Buspirone Hcl), 7.5 MG PO BID Cholecalciferol (Vitamin D 1000 Unit), 1,000 INTER.UNIT PO BID Docusate Sodium (Docusate Sodium), 100 MG PO BID Fish Oil ([place]-3), 1,200 MG PO QAM Flaxseed (Linseed) (Flax Oil), 1,200 MG PO HS Levothyroxine Sodium (Levothyroxine Sodium), 88 MCG PO Q2D Levothyroxine Sodium (Levothyroxine Sodium), 75 MCG PO Q2D Multivitamins (Daily Darnell), 2 TAB PO DAILY Omeprazole (Prilosec), 40 MG PO DAILY Ondasetron Odt (Zofran Odt), 4 MG SL Q6H Polyethylene Glycol 3350 (Miralax), 17 GM PO DAILY Simvastatin (Zocor), 5 MG PO HS [Iron], 65 MG PO DAILY Scheduled PRN Acetaminophen (Tylenol), 500 MG PO UD PRN for Pain Gabapentin (Gabapentin), 300 MG PO TID PRN for LEG PAIN Ibuprofen (Advil), 200 MG PO DIRECTED PRN for Pain Sodium Phosphate/Biphosphate (Fleet Enema), 1 EA MD DAILY PRN for Constipation Allergies Coded Allergies: Adhesives (Verified Allergy, Unknown, REDNESS FROM EKG PATCHES, 09/17/16) Codeine (Verified Allergy, Unknown, DOPEY, 09/17/16) Lorazepam (Verified Allergy, Unknown, NAUSEA, 09/17/16) Oxycodone (Verified Allergy, Unknown, NAUSEA AND VOMITING, 09/17/16) POLLEN (Verified Allergy, Unknown, EYES AND THROAT ITCHY, 09/17/16) Propoxyphene (Verified Allergy, Unknown, nausea, 09/17/16) N/V--NEARLY COMATOSE? Erythromycin (Verified Adverse Reaction, Unknown, NAUSEA, 09/17/16) Morphine (Verified Adverse Reaction, Unknown, HALLUCINATIONS, 09/17/16) Prednisone (Verified Adverse Reaction, Unknown, "High dose prednisone" -- extreme anxiety, 09/17/16) Tramadol (Verified Adverse Reaction, Unknown, "loopy", 09/17/16) Physical Exam Vital Signs Date Time Temp Pulse Resp B/P (MAP) Pulse Ox O2 Delivery O2 Flow Rate FiO2 09/17/16 05:49 36.7 64 18 180/93 96 Room Air Physical Exam GENERAL: Patient is awake, alert, and in no acute distress. Patient is resting comfortably and showing no signs of anxiety EYES: The conjunctivae are clear. The pupils are round and reactive. EARS, NOSE, MOUTH AND THROAT: The nose is without any evidence of any deformity. Mucous membranes are moist tongue is midline NECK: The neck is nontender and supple. RESPIRATORY: Normal respiratory effort is noted there is no evidence of wheezing rhonchi or rales CARDIOVASCULAR: Regular rate and rhythm noted there no murmurs rubs or gallops normal S1 normal S2 GASTROINTESTINAL: The abdomen is mildly distended, but soft, no tenderness, guarding, or rigidity noted. MUSCULOSKELETAL/EXTREMITIES: There is no evidence of gross deformity full range of motion is noted in the hips and shoulders SKIN: There is no obvious evidence of any rash. There are no petechiae, pallor or cyanosis noted. NEUROLOGIC: Patient is awake alert and oriented x3 Medical Decision & Procedures ER Provider Diagnostic Interpretation: X-ray results as stated below per interpretation by me and the radiologist. ABDOMEN 2VIEW W/PA CHEST RTN HISTORY:76 yearsFemaleconstipation COMPARISON: Portable chest radiograph 08/22/2016, chest CT 07/26/2016 TECHNIQUE: Frontal view of the chest with erect and supine views of the abdomen. FINDINGS: The cardiomediastinal and hilar silhouettes are within normal limits. There is no pneumothorax, pleural effusion or focal airspace consolidation. The bones are grossly intact. The bowel gas pattern is nonobstructive. There is moderate to extensive volume of formed stool throughout the colon, notably within the ascending and transverse portions. No urolith identified. Surgical clips are seen within the left hemicolon and pelvis with phleboliths within the pelvis. Right hip arthroplasty is noted. There is convex left curvature of the lumbar spine. IMPRESSION: 1. Nonobstructive bowel gas pattern. 2. Moderate to extensive volume of formed stool throughout the colon suggests constipation. 3. No acute cardiopulmonary process. The above report was generated using voice recognition software. It may contain grammatical, syntax or spelling errors. Electronically signed by: Ranjan Alcantar M.D. 09/17/2016 6:45 AM Dictated Date/Time: 09/17/2016 6:41 AM ED Course 0600: The patient was evaluated in room A3. A complete history and physical examination were performed. 0701: Milk And Molasses Enema 1 ea MD. 0700: Upon reevaluation, the patient is resting comfortably. I discussed the results and treatment plan with her. She verbalized agreement of the treatment plan. She was discharged home. Medical Decision Prior records/ancillary studies reviewed. Triage Nursing notes reviewed. The patient's history was concerning for constipation. Differential diagnosis: Etiologies such as appendicitis, diverticulitis, PUD, biliary pathology, UTI, pancreatitis, obstruction, mesenteric ischemia, aortic pathology, infections, inflammatory bowel disease, renal colic, as well as others were entertained. Medication Reconciliation: I attest that I have personally reviewed the patient' s current medications list. Patient was found to have a slightly elevated blood pressure due to circumstances. I do not believe that the patient requires hypertension monitoring. The patient is a 76-year-old female who presented to the emergency department for an evaluation of constipation. The patient had a recent problem with diarrhea and was taking antidiarrheal medications. She's noticed over the last few days that she's had no bowel movements. The patient did not have a physical exam consistent with an acute surgical abdomen. X-rays did not show any signs of obstruction. The patient was treated with milk of molasses enema in the emergency department. She was reevaluated multiple times. She was feeling much better on subsequent reevaluation. At this time I recommended a course of Melisa lax and follow-up with her primary care physician within the next few days. She was also encouraged to increase her liquid intake and return to the emergency department immediately if symptoms change worsen or the need arises. Impression Primary Impression: Constipation Scribe Attestation The scribe's documentation has been prepared under my direction and personally reviewed by me in its entirety. I confirm that the note above accurately reflects all work, treatment, procedures, and medical decision making performed by me. Departure Information Dispostion Home / Self-Care Prescriptions Polyethylene Glycol 3350 (MIRALAX) 1 Pow Pow 17 GM PO DAILY, #527 GM Prov: Humberto Yuen DO 09/17/16 Referrals Aisha Matthew DO (PCP) Forms HOME CARE DOCUMENTATION FORM, IMPORTANT VISIT INFORMATION Patient Instructions Constipation, My [facility] Additional Instructions Continue all medications as prescribed. Drink plenty clear liquids. Follow-up with your family this week for reevaluation. Return to the emergency department immediately if symptoms change worsen or the need arises. Problem Qualifiers Primary Impression: Constipation Constipation type: unspecified constipation type Qualified Codes: K59.00 - Constipation, unspecified
[2016-09-17] MEDS ORDERED: SODIENE PR (06:25)
--- NOTE | 2016-09-17 06:46 | DIAGNOSTIC IMAGING REPORT ---
ABDOMEN 2VIEW W/PA CHEST RTN HISTORY:76 yearsFemaleconstipation COMPARISON: Portable chest radiograph 08/22/2016, chest CT 07/26/2016 TECHNIQUE: Frontal view of the chest with erect and supine views of the abdomen. FINDINGS: The cardiomediastinal and hilar silhouettes are within normal limits. There is no pneumothorax, pleural effusion or focal airspace consolidation. The bones are grossly intact. The bowel gas pattern is nonobstructive. There is moderate to extensive volume of formed stool throughout the colon, notably within the ascending and transverse portions. No urolith identified. Surgical clips are seen within the left hemicolon and pelvis with phleboliths within the pelvis. Right hip arthroplasty is noted. There is convex left curvature of the lumbar spine. IMPRESSION: 1. Nonobstructive bowel gas pattern. 2. Moderate to extensive volume of formed stool throughout the colon suggests constipation. 3. No acute cardiopulmonary process. The above report was generated using voice recognition software. It may contain grammatical, syntax or spelling errors. Electronically signed by: Ranjan Alcantar M.D. 09/17/2016 6:45 AM Dictated Date/Time: 09/17/2016 6:41 AM
[2016-09-17] MEDS ORDERED: MILK AND MOLASSES ENEMA PR STA (07:01)
[2016-09-17] MEDS ORDERED: POLY335019 PO (07:03)
[2016-09-17 09:11] VITALS: BP 176/94; PULSE 67; O2SAT 96
== END 2016-09-17 09:12 | disposition home or self-care (01) ==
LOC: C.EDB 05:47 → C.EDA 09:12
DX: K59.00 Constipation, unspecified (principal); I10 Essential (primary) hypertension; K21.9 Gastro-esophageal reflux disease without esophagitis; E78.5 Hyperlipidemia, unspecified; I26.99 Other pulmonary embolism without acute cor pulmonale; M25.9 Joint disorder, unspecified; Z79.82 Long term (current) use of aspirin

== ENCOUNTER → 2016-09-25 | Outpatient (CLI) | payer OTHER, MEDICARE ==
[~2016-09-25] MED LIST changes: +POLY335019 PO; +SODIENE PR
[2016-09-25 15:13] LABS: THYROID STIMULATING HORMONE 2.81 uIu/ml (0.300-4.500)
== END | disposition home or self-care (01) ==
LOC: C.LAB1850 12:00
PROVIDERS: ATTEND Nurse Practitioner Family
DX: E03.9 Hypothyroidism, unspecified (principal)

== ENCOUNTER → 2016-11-22 | Outpatient (CLI) | payer OTHER, MEDICARE ==
[2016-11-22 13:32] LABS: BLOOD UREA NITROGEN 22 mg/dl (7-18); BUN/CREATININE RATIO 27.1 (10-20); CALCIUM 9.2 mg/dl (8.5-10.1); CARBON DIOXIDE 30 mmol/L (21-32); CHLORIDE 106 mmol/L (98-107); CREATININE 0.82 mg/dl (0.60-1.20); GLUCOSE 68 mg/dl (70-99); MAGNESIUM 2.1 mg/dl (1.8-2.4); POTASSIUM 4.1 mmol/L (3.5-5.1); SODIUM 140 mmol/L (136-145)
[2016-11-22 13:42] LABS: THYROID STIMULATING HORMONE 1.46 uIu/ml (0.300-4.500)
== END | disposition home or self-care (01) ==
LOC: C.LAB 11:38
PROVIDERS: ATTEND Physician Assistant
DX: I49.9 Cardiac arrhythmia, unspecified (principal); E03.9 Hypothyroidism, unspecified

== ENCOUNTER → 2017-02-27 | Outpatient (CLI) | payer OTHER, MEDICARE ==
--- NOTE | 2017-02-27 15:58 | DIAGNOSTIC IMAGING REPORT ---
ULTRASOUND LEFT LOWER EXTREMITY VENOUS CLINICAL HISTORY: Left calf pain. COMPARISON STUDY: Left lower extremity venous ultrasound dated 02/15/2014. TECHNIQUE: Real-time, grayscale, and color Doppler sonography of the deep veins of the left lower extremity was performed from the inguinal crease to the calf. Compression and augmentation were utilized. FINDINGS: There is no sonographic evidence of deep venous thrombosis identified in the left lower extremity. The common femoral, superficial femoral, and popliteal veins are patent and normally compressible. The greater saphenous vein and the profunda femoris vein at the junction with the common femoral vein are clear. The visualized calf veins are patent. Occlusive superficial venous thrombus is identified within the saphenous vein in the calf. IMPRESSION: 1. There is no sonographic evidence of deep venous thrombosis identified in the left lower extremity. 2. Occlusive superficial venous thrombus is seen within the saphenous vein in the calf. Electronically signed by: Salomon Jose M.D. 02/27/2017 3:57 PM Dictated Date/Time: 02/27/2017 3:55 PM
== END | disposition home or self-care (01) ==
LOC: C.ULTRBC 15:13
PROVIDERS: ATTEND Neuromusculoskeletal Medicine & OMM
DX: I87.2 Venous insufficiency (chronic) (peripheral) (principal); I82.812 Embolism and thrombosis of superficial veins of left lower extremity; M79.662 Pain in left lower leg

== ENCOUNTER → 2017-05-23 | Outpatient (CLI) | payer OTHER, MEDICARE ==
[~2017-05-23] MED LIST changes: +GABA-1219 PO; -GABA1CAP4 PO; -ONDA4TAB10 SL; -POLY335019 PO
[2017-05-23 12:28] LABS: BASO % 0.4 %; BASO ABS # 0.02 K/uL (0-0.2); EOS ABS # 0.41 K/uL (0-0.5); HEMATOCRIT 43.8 % (37-47); HEMOGLOBIN 14.3 g/dL (12.0-16.0); IG# 0.01 K/uL (0.00-0.02); LYMPH % 41.4 %; LYMPH ABS # 2.13 K/uL (1.2-3.4); MEAN CELL VOLUME 97.8 fL (80-100); MEAN CORPUSCULAR HEMOGLOBIN 31.9 pg (25-34); MEAN CORPUSCULAR HGB CONC 32.6 g/dl (32-36); MONO % 12.4 %; MONO ABS # 0.64 K/uL (0.11-0.59); NEUT % 37.6 %; NEUT ABS # 1.94 K/uL (1.4-6.5); PLATELET COUNT 211 K/uL (130-400); RED CELL DISTRIBUTION WIDTH CV 13.3 % (11.5-14.5); RED CELL DISTRIBUTION WIDTH SD 47.4 fL (36.4-46.3); WHITE BLOOD COUNT 5.15 K/uL (4.8-10.8)
[2017-05-23 13:00] LABS: ALBUMIN 3.3 gm/dl (3.4-5.0); ALT/SGPT 23 U/L (12-78); BLOOD UREA NITROGEN 23 mg/dl (7-18); CALCIUM 8.9 mg/dl (8.5-10.1); CARBON DIOXIDE 29 mmol/L (21-32); CHOLESTEROL 175 mg/dl (0-200); GLUCOSE 79 mg/dl (70-99); POTASSIUM 4.1 mmol/L (3.5-5.1); SODIUM 140 mmol/L (136-145)
[2017-05-23 13:10] LABS: ALKALINE PHOSPHATASE 66 U/L (45-117); AST/SGOT 25 U/L (15-37); LDL CHOLESTEROL CALCULATED 92 mg/dl; TOTAL PROTEIN 6.9 gm/dl (6.4-8.2)
== END | disposition home or self-care (01) ==
LOC: C.LAB1850 09:42
PROVIDERS: ATTEND Nurse Practitioner Family
DX: I10 Essential (primary) hypertension (principal); E03.9 Hypothyroidism, unspecified; E78.5 Hyperlipidemia, unspecified

== ENCOUNTER → 2017-06-21 | Outpatient (CLI) | payer OTHER, MEDICARE ==
--- NOTE | 2017-06-21 10:50 | DIAGNOSTIC IMAGING REPORT ---
R TOE(S) MIN 2 VIEWS CLINICAL HISTORY: 77 years-old Female presenting with M79.674 Pain of right great [id number]. TECHNIQUE: Frontal, oblique, and lateral views the right first toe were obtained. COMPARISON: None. FINDINGS: Osteopenia may be present. Minimal osteophytosis at the head of the first metatarsal with preservation of the first metatarsophalangeal joint space. No acute fracture or malalignment. No advanced degenerative change. No radiographic soft tissue abnormality. IMPRESSION: 1. Mild degenerative changes of the first metatarsophalangeal joint. 2. No acute osseous injury. Electronically signed by: Modesto Dudley M.D. 06/21/2017 10:49 AM Dictated Date/Time: 06/21/2017 10:47 AM
[2017-06-21 13:03] LABS: URIC ACID 5.5 mg/dl (2.6-7.2)
== END ==
LOC: C.RAD 09:54
PROVIDERS: ATTEND Nurse Practitioner Family
DX: G60.3 Idiopathic progressive neuropathy (principal); M19.071 Primary osteoarthritis, right ankle and foot

== ENCOUNTER → 2017-09-23 | Outpatient (CLI) | payer OTHER, MEDICARE ==
[2017-09-23 12:41] LABS: ALBUMIN 3.4 gm/dl (3.4-5.0); ALKALINE PHOSPHATASE 70 U/L (45-117); ALT/SGPT 28 U/L (12-78); AST/SGOT 28 U/L (15-37); BLOOD UREA NITROGEN 18 mg/dl (7-18); CALCIUM 8.7 mg/dl (8.5-10.1); CARBON DIOXIDE 28 mmol/L (21-32); CREATININE 0.91 mg/dl (0.60-1.20); GLUCOSE 94 mg/dl (70-99); POTASSIUM 3.9 mmol/L (3.5-5.1); SODIUM 140 mmol/L (136-145)
== END | disposition home or self-care (01) ==
LOC: C.LAB1850 10:00
PROVIDERS: ATTEND Nurse Practitioner Family
DX: I10 Essential (primary) hypertension (principal); E03.9 Hypothyroidism, unspecified; E83.42 Hypomagnesemia

== ENCOUNTER 2023-01-04 10:57 | Inpatient (IN) ==
--- NOTE | 2022-11-30 11:53 | PAT Medication Instructions ---
Medication Instructions Date of Service November 30, 2022 Home Medications Medication Instructions Recorded Synthroid 100 mcg tablet 100 mcg PO DAILY #90 tabs 05/07/22 (levothyroxine) lisinopril 5 mg tablet 5 mg PO BID #180 tabs 08/06/22 simvastatin 5 mg tablet 5 mg PO HS #90 tabs 11/14/22 albuterol sulfate 90 mcg/actuation 2 inh inhalation Q6H PRN shortness 11/21/22 breath activated powder inhaler of breath or wheezing #1 ea acetaminophen 500 mg capsule 500 mg PO Q6H PRN flaxseed oil 1,000 mg capsule ([place]-3 Flaxseed Oil) 1,000 mg PO QPM ferrous sulfate 325 mg (65 mg iron) tablet (iron) 325 mg PO QAM apixaban 2.5 mg tablet (Eliquis) 2.5 mg PO BID Synthroid 100 mcg tablet (levothyroxine) 100 mcg PO DAILY lisinopril 5 mg tablet 5 mg PO BID diclofenac sodium 1 % topical gel 2 g topical QID PRN simvastatin 5 mg tablet 5 mg PO HS albuterol sulfate 90 mcg/actuation breath activated powder inhaler 2 inh inhalation Q6H PRN cholecalciferol (vitamin D3) 25 mcg (1,000 unit) capsule (Vitamin D3) 25 mcg PO HS methenamine hippurate 1 gram tablet 1 g PO QAM Continue as directed Synthroid 100 mcg tablet (levothyroxine) 100 mcg PO DAILY ASK your prescriber and surgeon apixaban 2.5 mg tablet (Eliquis) 2.5 mg PO BID(in order for spinal or epidural anesthesia, Eliquis needs to be stopped 72 hours/3 days before surgery. Please check if okay with doctor that prescribes this to you) STOP taking 2 weeks before surgery (or as soon as possible if surgery is within 2 weeks) flaxseed oil 1,000 mg capsule ([place]-3 Flaxseed Oil) 1,000 mg PO QPM methenamine hippurate 1 gram tablet 1 g PO QAM STOP taking 24 hours before surgery diclofenac sodium 1 % topical gel 2 g topical QID PRN DO NOT take the morning of surgery lisinopril 5 mg tablet 5 mg PO BID ferrous sulfate 325 mg (65 mg iron) tablet (iron) 325 mg PO QAM Take morning of surgery With a small sip of water, OTHERWISE NOTHING TO EAT OR DRINK AFTER MIDNIGHT: albuterol sulfate 90 mcg/actuation breath activated powder inhaler 2 inh inhalation Q6H PRN(use if needed; please bring with you to hospital day of surgery if possible) acetaminophen 500 mg capsule 500 mg PO Q6H PRN(if needed) Take evening before surgery cholecalciferol (vitamin D3) 25 mcg (1,000 unit) capsule (Vitamin D3) 25 mcg PO HS albuterol sulfate 90 mcg/actuation breath activated powder inhaler 2 inh inhalation Q6H PRN(if needed) simvastatin 5 mg tablet 5 mg PO HS lisinopril 5 mg tablet 5 mg PO BID acetaminophen 500 mg capsule 500 mg PO Q6H PRN(if needed) Other Notes If you have any questions please call us at [phone] or [phone] or [phone] or [phone]
--- NOTE | 2022-12-03 14:46 | Anesthesiology Consultation ---
Date of Service December 03, 2022 Assessment & Plan (1) Encounter for pre-operative examination: - difficult IV stick: Pt notes in past has been elevated to ultrasound assisted or port placement without success. Successful lab draw at PAT visit x 1 attempt right antecubital. Pt requests attempts at antecubital access prior to her hands. She requested if she can drink additional water after midnight before surgery, this was discussed with Dr. Bergman who advised she should not drink more than a small sip of water given aspiration concerns. Patient was made aware of this at PAT visit, she expressed appreciation for discussion and verbalized agreement and understanding, denied additional questions or concerns. - positioning concerns: patient requests caution during positioning regarding left hip bursitis and right rotator cuff repair. OR notified. - EKG/adhesive: Pt states that reaction will occur if EKG stickers remain in place for several days, states has no harry-operative concerns. - anesthesia concerns: post-op urinary retention after left TKA, notes doing well with both THAs. - cardiology office visit 11/13/21 [facility]: "...Chronic atrial and ventricular ectopy. Hypertension. History of past DVT and pulmonary embolus with chronic venous insufficiency , mild residual pulmonary hypertension...Ectopy is essentially resolved without symptomatic complaints of bradycardia tachy or Pop arrhythmias or palpitations. She did undergo left hip replacement through an anterior approach on May 08, 2021 [facility], (Dr. William Truong) patient has had persistent numbness in left hip and thigh. Large hematoma per patient was noted. She was treated with Eliquis surrounding surgery and raises questions regarding ongoing use given history of recurrent venous thrombosis. N ow experiencing increasing paresthesias of the hands and feet. No current fevers or chills. Did have brief course of COVID over weekend. Has felt persistently fatigued and foggy in the head since that time. Difficulty spelling words she ordinarily new. No dizziness lightheadedness syncope or near syncope...Given symptomatic complaints post COVID repeat echocardiogram ordered. Patient request neurology referral due to paresthesias and mentation issues..." Pt was to f/u 05/2022-no visit to review of [facility] EMR. - Case discussed in detail with Dr. Casas who advised patient is acceptable to proceed with surgery without further evaluation or other action needed from his standpoint. - Outpatient joint assessment: Patient is currently scheduled for inpatient pathway. If re-evaluated and patient/surgeon requests outpatient pathway, patient is not recommended candidate for outpatient joint program from anesthesia standpoint. Chart Review Chart Review: Acceptable Risk for Surgery and Patient seen in Pre Admission Testing Teaching & Discussion Pre-Anesthesia Teaching/Discussion Notes: Instructed NPO after midnight before surgery, except medications with 15 cc of water. Medication instructions provided according to the PAT guidelines. History Surgery Operation Date: 01/04/23 10:40 Proposed Procedures p Right Total Knee Arthroplasty - Deniz Saeed MD Height/Weight Height: 5 ft 10 in Weight: 112.5 kg Allergies Allergy/AdvReac Type Severity Reaction Status Date / Time adhesive Allergy Unknown Redness Verified 11/29/22 15:04 (EKG patches if on for long periods) pollen extracts Allergy Unknown Eyes/throat Verified 11/29/22 15:04 itchy codeine AdvReac Unknown "Dopey" Verified 11/29/22 15:04 feeling erythromycin base AdvReac Unknown Nausea Verified 11/29/22 15:04 lorazepam AdvReac Unknown Nausea Verified 11/29/22 15:04 morphine AdvReac Unknown Hallucinati Verified 11/29/22 15:04 ons oxycodone AdvReac Unknown N/V Verified 11/29/22 15:04 prednisone AdvReac Unknown Extreme Verified 11/29/22 15:04 anxiety (with strong dose) propoxyphene AdvReac Unknown Nausea Verified 11/29/22 15:04 tramadol AdvReac Unknown "Loopy" Verified 11/29/22 15:04 feeling Medications Home Medications Medication Instructions Recorded Confirmed Last Taken acetaminophen 500 mg capsule 500 mg PO Q6H PRN Pain 12/05/20 11/29/22 04/25/22 08:00 flaxseed oil 1,000 mg capsule 1,000 mg PO QPM 12/05/20 11/29/22 04/24/22 12:00 ([place]-3 Flaxseed Oil) ferrous sulfate 325 mg (65 mg 325 mg PO QAM 04/13/21 11/29/22 04/24/22 08:00 iron) tablet (iron) apixaban 2.5 mg tablet (Eliquis) 2.5 mg PO BID 01/09/22 11/29/22 04/20/22 12:00 Synthroid 100 mcg tablet 100 mcg PO DAILY #90 tabs 05/07/22 11/29/22 Unknown (levothyroxine) lisinopril 5 mg tablet 5 mg PO BID #180 tabs 08/06/22 11/29/22 Unknown diclofenac sodium 1 % topical gel 2 g topical QID PRN Pain 10/25/22 11/29/22 Unknown simvastatin 5 mg tablet 5 mg PO HS #90 tabs 11/14/22 11/29/22 Unknown cholecalciferol (vitamin D3) 25 25 mcg PO HS 11/29/22 11/29/22 Unknown mcg (1,000 unit) capsule (Vitamin D3) omega-3 fatty acids 1,000 mg PO DAILY 12/03/22 12/03/22 Unknown albuterol sulfate 90 mcg/actuation 2 puff inhalation QID PRN 12/04/22 Unknown aerosol inhaler shortness of breath or wheezing #6.7 grams methenamine hippurate 1 gram tablet 1 g PO HS #90 tabs 12/04/22 Unknown Additional Notes: Pt states also takes omega 3 fatty acids and was advised to stop this 2 weeks prior to surgery. This was also written on provided medication instructions. She was advised she can take methenamine up to the day before surgery, cannot take the morning of surgery per my discussion with Dr. Bergman. She verbalized understanding and agreement, denied questions, concerns or additional medications/supplements. Past Medical History Medical History (Updated 12/04/22 @ 11:14 by Sonali Campbell PA-C) Anemia on iron supplementation Aspiration into airway with EGD per pt Atrial ectopy Chronic atrial and ventricular ectopy per [facility] cardio records; f/u dr. zachariah hoffman, [facility] Chronic venous insufficiency Diaphragmatic hernia Difficult intravenous access Pt notes in past has been elevated to ultrasound assisted or port placement without success. Successful lab draw at PAT visit x 1 right antecubital DVT (deep venous thrombosis) LLE (2017), RLE (2018) GERD (gastroesophageal reflux disease) Controlled, stable per pt H/O pulmonary hypertension mild residual after PE per [facility] cardio, echo updated 01/2022 with no evidence of pulmonary hypertension per report Hiatal hernia s/p surgical intervention History of anesthesia reaction unable to urinate following surgery years ago after left TKA 2013, had to be cathed and self cath for weeks following. notes doing well with subsequent THAs History of COVID-19 2021, mild symptoms, no current symptoms History of urinary hesitancy "sometimes she has trouble going and sometimes she has incontinence"; f/u with urology in the past HTN (hypertension) controlled, stable per pt Hx of ingrown nail removal both great toes, under anesthesia Hyperlipidemia Hypothyroidism Leg length discrepancy RLE 1.3cm longer than LLE shelter current use of anticoagulant eliquis Low back pain with sciatica Neuropathy Feet and legs (mild to moderate) Pancreatitis Hx-not for a long time Paraesophageal hiatal hernia Postoperative urinary retention 2013 after left TKA, notes she did well with hip surgeries Prediabetes Pulmonary embolism post-op extensive pelvic surgery (1999), no issues since Right rotator cuff tear hx recent injection beginning of 11/2022 Sensorineural hearing loss (SNHL) of right ear with unrestricted hearing of left ear Suspected sleep apnea Snoring, denies witnessed apneas. Denies sleep testing, pt feels she may have sleep apnea given snoring and would like suspected sleep apnea entered in chart Tinnitus of right ear Urinary tract infection hx-Multiple UTIs -12/2020 Ventricular bigeminy 08/08/2016-08/13/2016, [facility], w/bradycardia; f/u dr. yasmin bull Patient denies h/o stroke, seizures, heart attack, heart failure, or blood transfusions. Exercise / Class Metabolic Activity III < 4 Walking/Shop/Light housework (denies chest discomfort or shortness of breath with usual activities, ambulates with cane) Past Family History Family History Father Colon cancer Coronary arteriosclerosis Myocardial infarction Mother Cerebral atherosclerosis Coronary arteriosclerosis Stroke Myocardial infarction Sister Breast cancer H/O mastectomy Kidney cysts Other Family history non-contributory Denies family history of Ovarian cancer Prostate cancer Past Surgical History Surgical History (Updated 12/03/22 @ 15:54 by Sonali Campbell PA-C) Cystocele REPAIR OF AND RECTOCELE 1999 H/O removal of cyst 2005 H/O wisdom tooth extraction H/O: hysterectomy 1984 History of colonoscopy History of cystoscopy History of esophagogastroduodenoscopy (EGD) MULTIPLE History of incisional hernia repair 07/2001 Dr. Richmond Chaney History of right hip replacement 05/17/2015 [facility] History of tonsillectomy and adenoidectomy 1952 Performed in [facility] History of tubal ligation 1979 Hx of hernia repair 09/15/2010 diaphragmatic hernia, incisional hernia, umbilica, repair of paraesophageal hernia - laparoscopic, gastrectomy subtotal, lysis adhesions, esophagoscopy Dr. Bains S/P cataract surgery left 2013, right 2013 S/P knee replacement left knee 01/19/2014 Dr. Saeed of [place] [facility] [place] S/P YAG capsulotomy Left 11/02/2014 Right 06/08/2014 [facility] Status post left hip replacement 05/08/21 Past Anesthesia History Other (see above for patient history; mother with cardiac arrest during carotid surgery) History of PONV No Hx of PONV and Hx of Motion Sickness Social History Smoking Status: Never smoker Do You Dip or Chew Tobacco: No Hx Alcohol Use: No Hx Substance Use: No substance use type: does not use Review of Systems Patient denies chest pain, shortness of breath, dyspnea on exertion, fever, chills, cough, wheezing, or palpitations. Physical Exam Vital Signs Vitals BP 133/79 P 61 TEMP 98.3 SP02 96% on RA RESP 18 Physical Patient resting comfortably in chair in no acute distress, alert and oriented, responding appropriately throughout visit Full cervical extension range of motion without pain TMD < 3 finger breadths Mallampati Score 3.5 Dentition: several crowns, denies chipped or loose teeth, implants or bridges (Pt notes upcoming dental appt, she was advised she will need to contact surgeon's office regarding if there are any surgical concerns) Lungs: normal respiratory effort. Good air movement, clear throughout to auscultation, no adventitious breath sounds Cardiac: regular rate and rhythm, no murmurs noted Carotid arteries: negative bruit bilat Lab Results Anesthesia Preop Results Results Anesthesia Widget: WBC 4.88 K/ul (4.8-10.8) 12/03/22 Hgb 12.8 g/dl (12.0-16.0) 12/03/22 Hct 37.7 % (37.0-47.0) 12/03/22 Plt 229 K/uL (130-400) 12/03/22 Na 138 mmol/L (136-145) 12/03/22 K 3.9 mmol/L (3.5-5.1) 12/03/22 Cl 104 mmol/L (98-107) 12/03/22 CO2 30 mmol/L (21-32) 12/03/22 BUN 23 mg/dl (6-23) 12/03/22 Creat 0.79 mg/dl (0.6-1.2) 12/03/22 Glucose Level 107 mg/dl (70-99(Fasting)) H 12/03/22 PT 10.8 Seconds (9.0-12.0) 12/03/22 PTT 27.1 Seconds (21.0-31.0) 12/03/22 INR 1.0 (0.9-1.1) 12/03/22 TSH 0.822 uIu/ml (0.300-4.500) 10/18/22 HA1c 5.7 % (4.5-5.6) H 10/18/22 SARS-CoV-2, RNA, NAAT Negative 11/20/22 Blood Type O Negative 12/03/22 Antibody Screen NEGATIVE 12/03/22 Testing Electrocardiogram Date: 11/16/22 NSR, rate 62 bpm Chest X-Ray Date: 11/16/22 *1view* No acute process Echocardiogram Date: 01/09/22 EF 55-59% Mild cLVH Grade I diastolic dysfunction Mild tricuspid regurgitation Normal LV wall motion Other Testing Head CT 11/16/22 1. No acute intracranial abnormality. 2. Mild chronic small vessel ischemic changes and cerebral volume loss. Neck MRA 08/18/19 Unremarkable MRA of the neck. Head MRA 08/18/19 Unremarkable MRA of the head. No intracranial aneurysm
--- NOTE | 2022-12-29 10:33 | History & Physical Report ---
Date of Service December 29, 2022 Assessment & Plan (1) Arthritis of knee, right: 82-year-old female with multiple medical comorbidities status post bilateral hip and left knee replacement with advanced right knee DJD. She has failed conservative measures. She like to have her right knee replaced. Has been t hrough extensive work-up by her neurologist as well as medical doctors and cleared for surgical treatment. She does have a history of a DVT in the past and on Eliquis. Plan: When taken to the operating do a right total knee replacement but the risks Mente this procedure explained the patient clued but not limited to DVT, PE, , infection, neurovascular injury, persistent pain, incomplete relief of pain, need for further surgery in the future, etc. Patient understands and desires to proceed. Informed consent is obtained. Has been cleared by her neurologist Dr. Caceres up. Will hold operatively and started 24 hours postoperatively at a prophylactic dose. She is planning on a either being discharged to a rehab for a brief rehab stay versus home health depending on how she does postoperatively. History of Present Illness Chief Complaint: . Persistent progressive right knee pain and discomfort. Primary Care Provider: Pepito Bradley III, GERMAINE . Patient is an 82-year-old female well-known to me from multiple orthopedic operations in the past and long-term management of her multiple orthopedic issues. She now presents with persistent right knee pain and discomfort and surgical management of her right knee. Is got a long history of orthopedic problems and had both hips replaced and her left knee replaced. Over the past several years she developed increased pain discomfort in her right knee. She is resorted to using a cane to get around for the past year or so well. She has been trying to get her knee replaced but had some neurological issues that had to be sorted out. 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 She like to proceed with surgical management at this point. She been cleared by her neurologist. SPECT of the knees she has been bothered by this knee pain for several years. She been through extensive conservative treatment which has become less successful over time. She has had to resort to using a cane for the past year. She describes global pain. The more she is up onto more it hurts. She now like to have her right knee replaced. Her other joints seem to be doing pretty well. Allergies Allergy/AdvReac Type Severity Reaction Status Date / Time adhesive Allergy Unknown Redness Verified 11/29/22 15:04 (EKG patches if on for long periods) pollen extracts Allergy Unknown Eyes/throat Verified 11/29/22 15:04 itchy codeine AdvReac Unknown "Dopey" Verified 11/29/22 15:04 feeling erythromycin base AdvReac Unknown Nausea Verified 11/29/22 15:04 lorazepam AdvReac Unknown Nausea Verified 11/29/22 15:04 morphine AdvReac Unknown Hallucinati Verified 11/29/22 15:04 ons oxycodone AdvReac Unknown N/V Verified 11/29/22 15:04 prednisone AdvReac Unknown Extreme Verified 11/29/22 15:04 anxiety (with strong dose) propoxyphene AdvReac Unknown Nausea Verified 11/29/22 15:04 tramadol AdvReac Unknown "Loopy" Verified 11/29/22 15:04 feeling Home Medications Medication Instructions Recorded Confirmed Type acetaminophen 500 mg capsule 500 mg PO Q6H PRN Pain 12/05/20 11/29/22 History flaxseed oil 1,000 mg capsule 1,000 mg PO QPM 12/05/20 11/29/22 History ([place]-3 Flaxseed Oil) ferrous sulfate 325 mg (65 mg 325 mg PO QAM 04/13/21 11/29/22 History iron) tablet (iron) apixaban 2.5 mg tablet (Eliquis) 2.5 mg PO BID 01/09/22 11/29/22 History Synthroid 100 mcg tablet 100 mcg PO DAILY #90 tabs 05/07/22 11/29/22 Rx (levothyroxine) lisinopril 5 mg tablet 5 mg PO BID #180 tabs 08/06/22 11/29/22 Rx diclofenac sodium 1 % topical gel 2 g topical QID PRN Pain 10/25/22 11/29/22 History simvastatin 5 mg tablet 5 mg PO HS #90 tabs 11/14/22 11/29/22 Rx cholecalciferol (vitamin D3) 25 25 mcg PO HS 11/29/22 11/29/22 History mcg (1,000 unit) capsule (Vitamin D3) omega-3 fatty acids 1,000 mg PO DAILY 12/03/22 12/03/22 History albuterol sulfate 90 mcg/actuation 2 puff inhalation QID PRN 12/04/22 Rx aerosol inhaler shortness of breath or wheezing #6.7 grams amoxicillin 500 mg tablet 2,000 mg PO ONCE #4 tabs 12/04/22 Rx methenamine hippurate 1 gram tablet 1 g PO HS #90 tabs 12/04/22 Rx Past Med/Surg History Medical History Anemia on iron supplementation Aspiration into airway with EGD per pt Atrial ectopy Chronic atrial and ventricular ectopy per [facility] cardio records; f/u dr. zachariah hoffman, [facility] Chronic venous insufficiency Diaphragmatic hernia Difficult intravenous access Pt notes in past has been elevated to ultrasound assisted or port placement without success. Successful lab draw at PAT visit x 1 right antecubital DVT (deep venous thrombosis) LLE (2016), RLE (2018) GERD (gastroesophageal reflux disease) Controlled, stable per pt H/O pulmonary hypertension mild residual after PE per [facility] cardio, echo updated 01/2022 with no evidence of pulmonary hypertension per report Hiatal hernia s/p surgical intervention History of anesthesia reaction unable to urinate following surgery years ago after left TKA 2013, had to be cathed and self cath for weeks following. notes doing well with subsequent THAs History of COVID-19 2021, mild symptoms, no current symptoms History of urinary hesitancy "sometimes she has trouble going and sometimes she has incontinence"; f/u with urology in the past HTN (hypertension) controlled, stable per pt Hx of ingrown nail removal both great toes, under anesthesia Hyperlipidemia Hypothyroidism Leg length discrepancy RLE 1.3cm longer than LLE jail current use of anticoagulant eliquis Low back pain with sciatica Neuropathy Feet and legs (mild to moderate) Pancreatitis Hx-not for a long time Paraesophageal hiatal hernia Postoperative urinary retention 2013 after left TKA, notes she did well with hip surgeries Prediabetes Pulmonary embolism post-op extensive pelvic surgery (1999), no issues since Right rotator cuff tear hx recent injection beginning of 11/2022 Sensorineural hearing loss (SNHL) of right ear with unrestricted hearing of left ear Suspected sleep apnea Snoring, denies witnessed apneas. Denies sleep testing, pt feels she may have sleep apnea given snoring and would like suspected sleep apnea entered in chart Tinnitus of right ear Urinary tract infection hx-Multiple UTIs 8-12/2020 Ventricular bigeminy 08/08/2016-08/13/2016, [facility], w/bradycardia; f/u dr. yasmin bull Surgical History Cystocele REPAIR OF AND RECTOCELE 1999 H/O removal of cyst 2005 H/O wisdom tooth extraction 1960s H/O: hysterectomy 1984 History of colonoscopy History of cystoscopy History of esophagogastroduodenoscopy (EGD) MULTIPLE History of incisional hernia repair 07/2001 Dr. Richmond Chaney History of right hip replacement 05/17/2015 [facility] History of tonsillectomy and adenoidectomy 1952 Performed in [facility] History of tubal ligation 1979 Hx of hernia repair 09/15/2010 diaphragmatic hernia, incisional hernia, umbilica, repair of paraesophageal hernia - laparoscopic, gastrectomy subtotal, lysis adhesions, esophagoscopy Dr. Bains S/P cataract surgery left 2013, right 2012 S/P knee replacement left knee 01/19/2014 Dr. Haley and [place] S/P YAG capsulotomy Left 11/02/2014 Right 06/08/2014 [facility] Status post left hip replacement 05/08/21 Family History Father Colon cancer Coronary arteriosclerosis Myocardial infarction Mother Cerebral atherosclerosis Coronary arteriosclerosis Stroke Myocardial infarction Sister Breast cancer H/O mastectomy Kidney cysts Other Family history non-contributory Denies family history of Ovarian cancer Prostate cancer Social History Smoking Status: Never smoker Second Hand Exposure: Yes (hx as child); Do You Dip or Chew Tobacco: No; Hx Alcohol Use: No Hx Substance Use: No Preferred Language: Occitan Communication Ability: Effective Visual Impairment: No Limitations Hearing Ability: Normal Umbrella Tipper Machine Required: No Beliefs That Will Affect Care: None marital status: / Current Living Situation: Family Current Living Situation Comment: with Son current occupational status: retired How many Children do You have: 2 Feels Safe at Home: Yes Childhood Exposure to Second-Hand Smoke: Yes Diet: regular Diet Comment: regular caffeine: No during the past year weight has: remained stable Dental Care, Regularly: Yes Physical Activity Frequency: Daily Seatbelt Use: always Sunscreen Use: No Assistive Devices: Cane, Glasses and Stair Lift Review of Systems All systems reviewed & are unremarkable except as noted in HPI & below. Physical Exam . Physical examination was a pleasant elderly female. She ambulates with the use of a cane. She does seem to limp on the right side. She got bony hypertrophy. She does have some stiffness to the knee with about a 15 degree flexion con tracture and only bends about 105 degrees. Small knee effusion. Is got bony hypertrophy throughout. No particular pain with hip motion. Constitutional WD/WN, vitals as above Neck trachea midline, no thyromegaly Respiratory normal respiratory effort, lungs clear to auscultation Cardiovascular RRR, no murmur, no edema Gastrointestinal (Abdomen) normal bowel sounds, soft, nontender, no hepatosplenomegaly Results & Data Results & Data Laboratory Results . Diagnostic Findings . X-rays of the right knee reviewed. Shows advanced right knee tricompartment DJD. She got complete loss of medial joint space but is got chondrocalcinosis. Is got osteophytes in all 3 compartments. Left knee replacement looks in good position without problems. PG Care Time/CCT Total # of Minutes Spent Total Time Spent with Patient: Total time spent is greater than 50% in coordination of care (as documented) at patient's floor/unit and/or counseling patient: Coding Level of Care Code None Diagnoses Arthritis of knee, right M17.11
[~2023-01-04 10:57] MED LIST changes: -ACET-1256 PO; +ACETAMINOPHEN 500 MG TAB PO SCH; -ASPI-435 PO; +BUPIVACAINE 0.25% PF 30 ML VIAL ONE; +BUPIVACAINE 0.5 % 5 MG/1 ML PF 10ML VIAL ONE; +BUPIVACAINE LIPOSOME/PF 266 MG, BUPIVACAINE/EPINEPHRINE 50 ML, SODIUM CHLORIDE 0.9% PF ... INFIL SCH; -BUSP5TAB59 PO; -CHOL100027 PO; +CeleBREX 200 MG CAP PO SCH; -DOCU100C31 PO; +FAMOTIDINE 20 MG TAB PO SCH; -FLAXOIL2 PO; -GABA-1219 PO; -IBUP-1277 PO; -IRON PO; -LEVO75TA5 PO; -LEVO88TA3 PO; +LR 500ML BOLUS, THEN 15ML/HR IV SCH; +LR 60ML/HR IV SCH; +METOCLOPRAMIDE HCL 10 MG TABLET PO SCH; -MULT-589 PO; -OMEG10007 PO; -OMEP40CA41 PO; -SIMV5TAB2 PO; -SODIENE PR; +TRANEXAMIC ACID 1,000 MG **IV Intra-op IV SCH; +ceFAZolin 2000MG 2,000 MG/15 ML SYR IV SCH; +dexAMETHasone**PF** 10 MG/ML VIAL IV SCH
[2023-01-04] MEDS ORDERED: fentaNYL citrate PF 100 MCG/2 ML VIAL ONE (11:09)
[2023-01-04] MEDS ORDERED: MIDAZOLAM HCL 1 MG/ML 2ML VIAL ONE (11:09)
[2023-01-04] MEDS ORDERED: LIDOCAINE 2% 2 ML VIAL/AMP(20MG/ML) INFIL ONE (11:09)
[2023-01-04] MEDS ORDERED: PROPOFOL IV EMULSION 10 MG/ML 20 ML VIAL IV ONE ×3 (11:09→13:52)
[2023-01-04] MEDS ORDERED: BUPIVACAINE/EPINEPHRINE 0.25% 1:200,000 30 ML VIAL ONE (11:40)
[2023-01-04] MEDS ORDERED: SODIUM CHLORIDE 0.9% PF 50 ML VIAL ONE (11:40)
[2023-01-04] MEDS ORDERED: BUPIVACAINE LIPOSOME 1.3% 266 MG/20 ML VIAL ONE (11:41)
[2023-01-04] MEDS ORDERED: ONDANSETRON INJ 2 MG/ML 2 ML VIAL IV PRN ×2 (11:56→16:16)
[2023-01-04] MEDS ORDERED: fentaNYL citrate PF 100 MCG/2 ML VIAL IV PRN (11:56)
[2023-01-04] MEDS ORDERED: ATROPINE SULFATE 0.1 MG/ML 10ML SYR IV PRN (11:56)
[2023-01-04] MEDS ORDERED: ePHEDrine sulfate 50 MG/ML AMP IV PRN (11:56)
--- NOTE | 2023-01-04 12:22 | History & Physical Bridge Note ---
Date of Service January 04, 2023 History & Physical Bridge Note I have examined the patient, reviewed the History & Physical and in the interval since the performance of the History & Physical I have noted the following changes of clinical significance: no changes noted
--- NOTE | 2023-01-04 14:33 | Operative Report ---
PG Post Operative Report Pre & Post Diagnosis Operation Date: 01/04/23 12:45 Pre-Op Diagnosis: Right Knee Degenerative Joint Disease Post-Op Diagnosis: Right Knee Degenerative Joint Disease I identified the patient and participated in the time-out.: Yes Procedure Operation Date: 01/04/23 12:45 Actual Procedures p Right Total Knee Arthroplasty(Right) - Deniz Saeed MD Surgeon Deniz Saeed MD Pediatric Radiologist Yair Rodriguez PA-C Estimated Blood Loss 50 Findings Consistent with Post-Op Diagnosis Operative findings revealed advanced right knee tricompartment DJD. She had grade 4 [id number] disease in all 3 compartments most severe in the medial side. She had osteophytes in all 3 compartments. She had about 10 to 15 degree flexion contracture. Flexion to about 115 degrees. Specimens Right knee sent for pathology Anesthesia Type Spinal MAC Complications none Disposition Accompanied Patient To Recovery: No Indications Patient is an 82-year-old female who has had a host of orthopedic issues over the years. She had both hips replaced in the left knee replaced. With past several years she developed increased pain discomfort in her right knee. She failed all conservative measures. She elected proceed with total knee arthroplasty. Description of Procedure Operative implants consist of: 1. Biomet Vanguard size 70 right posterior stabilized femoral component. 2. Biomet size 71 tibial tray. 3. 10 mm pro stabilized polyethylene insert. 4. 31 x 8 all poly patella. The patient was taken to the operative room, identified, and placed on the o perating table supine position. All contact areas were appropriately padded. IV antibiotics tried by anesthesia team. A spinal anesthetic and abductor canal block had provided in the holding area. A Knight catheter was placed in sterile fashion. Right thigh turn was then placed in the right lower extremities then prepped and draped in usual sterile fashion. The right leg was elevated exsanguinated with use of an Esmarch in terms playset 300 mmHg. An anterior approach of the right knee was then performed to longitudinal incision centered over the patella. Sharp dissection was carried through subcutaneous tissue down the extensor mechanism. A medial parapatellar arthrotomy incision was made. Some subperiosteal dissection was carried out medially. The fat pad was resected from Neath patella tendon. Lateral patellofemoral ligament was released. Patella subluxated laterally knee was flexed. The osteophytes taken on distal femur. The ACL and PCL were then released and the distal femur the tibia subluxated anteriorly. The external tibial alignment jig was then placed in the interface the tibia and adjusted 14 mm medially. Proximal tibial cut was made to move out a millimeter to bone from the medial side. Tibia was then sized to a size 71. Attention drawn the femur. The distal femur examined the sharp drill. Intramedullary canal was suction. A right 5 degree valgus cutting guide was placed. The distal femoral cutting block was pinned in place. Distal femoral cut was made to take an additional 3 mm of bone off distal femur. The femur was then sized to a size 70. The AP cutting block was pinned parallel to the epicondylar axis which was 4 degrees of external rotation. The anterior cut, anterior chamfer, posterior cut, posterior chamfer cuts were made. The box cutting guide was placed in just slight lateral and the box cut was made. The knee was flexed. The remnants of the medial and lateral menisci were excised. The osteophytes were taken off the posterior aspect the femur. A trial femoral component was placed. Tibial tray was pinned in maximum external rotation and the drill and stem punch were used to create defect in proximal tibia for the tibial tray. The knee was then trialed and the 10 mm insert fit most appropriately. Attention drawn the patella. Patella is cleaned of all soft tissues. Patella thickness measured 22 mm in thickness was cut down to 14. Was sized to a size 31 patella. The locals were drilled for 31 patella. Lateral osteophytes removed. Patella button was placed. Knee was taken through range of motion and the patella tracked nicely with no thumbs test. Attention drawn to placing permanent components. Nupathe all trial components were removed. Bone plug was placed in the distal femur limit blood loss. A double batch [place] G cement was mixed. Biomet Vanguard size 70 right posterior stabilized femoral component, a size 71 tibial tray, 10 mm posterior stabilized polyethylene insert, 31 x 8 all poly patella were then cemented in place. The knee was brought out into full extension till cement hardened. Final cement check was then performed. The pericapsular tissues were injected with total 100 cc of combination of 20 of Exparel, 30 cc normal saline, and 50 cc of quarter percent Marcaine with epinephrine. Patient did receive 1 g tranexamic acid. The tourniquet was let down for final tourniquet time 56 minutes. Hemostasis assured use electrocautery. Extensor mechanism then closed with combination 1 PDS suture #1 Vicryl suture in a [id number] fashion. Extensor Maxon checked found to be intact the subcutaneous tissues then closed with 2 Dexon suture in a buried interrupted fashion skin was closed skin joaquín. Leg was then cleaned and dried and sterile dressing with Xeroform, 4 fours, sterile cast padding, Frankie bandage were applied. Patient then transferred to the recovery room in stable condition. Patient tolerated procedure well and there were no complications. Yair Rodriguez, my physician fast food sales assistant, was present for the entire procedure. His assistance was essential and required for appropriate patient positioning, prepping and draping, surgical exposure, performing the technical details of the operation, placement the implants, closure of the wound, and placement of the sterile bandage. I attest to the content of the Intraoperative Record and any orders documented therein. Any exceptions are noted below.
--- NOTE | 2023-01-04 14:54 | XRay Report ---
XR knee RT 1 or 2V routine HISTORY: 82 years-old Female Surgical Post Op right knee arthroplasty COMPARISON: 12/03/2022 TECHNIQUE: 2 views of the right knee FINDINGS: Total joint arthroplasty with patellar resurfacing. Anterior midline skin joaquín with expected posto perative soft tissue swelling and deep tissue air. No acute fracture or malalignment. IMPRESSION: Total joint arthroplasty with expected postoperative changes. ACT 112: Negative or not required by law. The above report was generated using voice recognition software. It may contain grammatical, syntax o r spelling errors. Electronically signed by: Ramiro Alcantar M.D. 01/04/2023 2:52 PM
[2023-01-04] MEDS ORDERED: MEPERIDINE HCL 50 MG/ML CARP ONE (15:19)
[2023-01-04] MEDS: MEPERIDINE HCL 25 MG/ML CARP/VIAL IV PRN ×2 (15:20→15:25)
[2023-01-04] MEDS ORDERED: MEPERIDINE HCL 25 MG/ML CARP/VIAL ONE (15:22)
--- NOTE | 2023-01-04 15:58 | Anesthesiology Progress Note ---
Date of Service January 04, 2023 Anesthesia Post Procedure Vital Signs Vital Signs: Temp Pulse Pulse Resp BP BP Pulse Ox 01/04/23 15:50 60 15 154/68 H 98 01/04/23 15:40 52 L 16 143/68 H 100 01/04/23 15:30 36.4 C L 52 L 18 136/69 100 01/04/23 15:20 59 L 22 146/68 H 100 01/04/23 15:10 76 16 131/96 100 01/04/23 15:00 63 15 120/65 100 01/04/23 14:50 53 L 19 139/70 100 01/04/23 14:40 54 L 12 137/64 100 01/04/23 14:31 36.3 C L 64 20 114/60 98 01/04/23 11:44 36.5 C 62 18 151/73 H 97 O2 Del Method O2 Flow Rate 01/04/23 15:50 Room Air 01/04/23 15:40 Room Air 01/04/23 15:30 Room Air 01/04/23 15:20 Room Air 01/04/23 15:10 Room Air 01/04/23 15:00 Room Air 01/04/23 14:50 Oxymask 2 01/04/23 14:40 Oxymask 2 01/04/23 14:31 Oxymask 5 01/04/23 11:44 Room Air Transfer of Care Handoff Completed per policy Notes Mental Status: alert / awake / arousable and participated in evaluation Patient Amnestic to Procedure: Yes Nausea / Vomiting: adequately controlled Pain: adequately controlled Airway Patency, RR, SpO2: stable & adequate BP & HR: stable & adequate Hydration State: stable & adequate Anesthetic Complications: no major complications apparent and Pt Satisfied with anesthetic care
[2023-01-04] MEDS ORDERED: bisacodyL 10 MG SUPP PR PRN (16:16)
[2023-01-04] MEDS ORDERED: NALOXONE HCL 0.4 MG/1 ML VIAL/CARP IV PRN (16:16)
[2023-01-04] MEDS ORDERED: HYDROmorphone INJ 0.5 MG/0.5 ML SYR IV PRN (16:16)
[2023-01-04] MEDS ORDERED: MAGNESIUM HYDROXIDE SUSP 30 ML UDC PO PRN (16:16)
[2023-01-04] MEDS ORDERED: ALUMINUM/MAGNESIUM SUSP 30 ML UDC PO PRN (16:16)
[2023-01-04] MEDS ORDERED: METOCLOPRAMIDE HCL INJ 5 MG/ML 2 ML VIAL IV PRN (16:16)
[2023-01-04] MEDS ORDERED: ALBUTEROL HFA 8 GM INHALER INH PRN (16:16)
[2023-01-04] MEDS: SODIUM CHLORIDE 0.9% 1,000 ML IV SCH (17:03)
[2023-01-04] MEDS: ASCORBIC ACID 500 MG TAB PO SCH (17:34)
[2023-01-04] MEDS: KETOROLAC TROMETHAMINE 15 MG/ML VIAL IV SCH ×2 (17:34→22:40)
[2023-01-04] MEDS: HYDROmorphone HCL 2 MG TAB PO PRN (18:30)
[2023-01-04] MEDS: ceFAZolin 2000MG 2,000 MG/15 ML SYR IV SCH (19:49)
[2023-01-04] MEDS: CHOLECALCIFEROL 1,000 UNITS 25 MCG TAB PO SCH (19:51)
[2023-01-04] MEDS: ACETAMINOPHEN 500 MG TAB PO SCH (19:51)
[2023-01-04] MEDS: DOCUSATE SODIUM 100 MG CAP PO SCH (19:52)
[2023-01-04] MEDS: lisinopril 5 MG TAB PO SCH (19:53)
[2023-01-04] MEDS: SENNA 8.6 MG TAB PO SCH (19:54)
[2023-01-04] MEDS ORDERED: TRANEXAMIC ACID / 0.7% NACL 1,000 MG/100 ML BAG IV SCH (20:30)
[2023-01-04] MEDS: SIMVASTATIN 5 MG TAB PO SCH (20:42)
[2023-01-04] MEDS ORDERED: FLAXSEED OIL 1000 MG PO SCH (21:00)
[2023-01-04] MEDS ORDERED: SENNA 8.6 MG TAB PO SCH (21:00)
[2023-01-05] MEDS: SODIUM CHLORIDE 0.9% 1,000 ML IV SCH (03:10)
[2023-01-05] MEDS: ceFAZolin 2000MG 2,000 MG/15 ML SYR IV SCH (04:45)
[2023-01-05] MEDS: KETOROLAC TROMETHAMINE 15 MG/ML VIAL IV SCH ×2 (04:46→11:09)
[2023-01-05] MEDS: LEVOTHYROXINE SODIUM 100 MCG TABLET PO SCH (04:46)
[2023-01-05] MEDS: HYDROmorphone HCL 2 MG TAB PO PRN (04:49)
[2023-01-05 06:35] LABS: Hematocrit (blood only) 33.7 % (37.0-47.0); Hemoglobin 11.4 g/dl (12.0-16.0); Mean Corpuscular Hemoglobin 32.5 pg (25.0-34.0); Mean Corpuscular Hgb Conc 33.8 g/dL (32.0-36.0); Mean Platelet Volume 10.5 fL (9.4-12.4); Platelet Count 198 K/uL (130-400); RDW Standard Deviation 45.1 fL (36.4-46.3); Red Blood Count 3.51 M/uL (4.20-5.40); White Blood Count 10.27 K/ul (4.8-10.8)
[2023-01-05 07:24] LABS: BUN Creatinine Ratio 25.8 (10-20); Calcium 8.6 mg/dl (8.6-10.3); Creatinine Clr Calc Pharmacy 60.9 ml/min; Est GFR (Non-African American) 54.4 ml/min; Potassium 4.3 mmol/L (3.5-5.1)
[2023-01-05] MEDS: ASCORBIC ACID 500 MG TAB PO SCH ×2 (07:26→16:00)
[2023-01-05] MEDS ORDERED: dexAMETHasone 10 MG in SYRINGE 0 ML IV SCH (08:00)
--- NOTE | 2023-01-05 08:20 | Surgery Progress Note ---
Date of Service January 05, 2023 Assessment & Plan (1) Status post right knee replacement: Plan: 82-year-old female with multiple medical comorbidities now postop day 1 from right knee replacement. She had a pretty good night but been sick since taking the Dilaudid. Pain is otherwise pretty well controlled currently. Plan: 1. DVT prophylaxis including thigh-high teds SCDs we will start her back on Eliquis 24 hours postop # 2 PT OT. Weight-bear as tolerated right total knee protocol # 3 pain control pain is controlled currently. Took some Dilaudid got nauseated. We will have to give her some Zofran and see if we can manage her pain with alternative medicines. She does get nauseated with just about all narcotics. 4. Disposition. She was hoping to go home but I think that is can be difficult in her situation. She very well may need a intermediate or rehab stay. We will get renal social worker looking into this today. 5. Nausea. Working to hold the Dilaudid. Would continue using the Tylenol and will give her some Zofran this morning. Admission and Anticipated Discharge Date Admission Date: January 04, 2023 Subjective 82-year-old female postop day 1 from a right knee replacement. She had a pretty good night. She was having pain this morning they gave her 1 Dilaudid and she is feeling pretty nauseated currently. No chest pain or shortness of breath. Just feeling nausea and feels like she has to throw up. Unfortunately she had some type of gastric procedure which does not allow her to have a emesis. Pain is controlled currently. No chest pain or shortness of breath Physical Exam Physical Exam: Physical examination reveals a pleasant elderly female. She clearly looks a little bit nauseated this morning. She is sitting up in bedside chair. Examination of the right leg reveals the dressing be clean dry and intact. She can dorsiflex and plantarflex her foot appropriately. She is neurologically intact. Respiratory: normal respiratory effort, lungs clear to auscultation Cardiovascular: RRR, no murmur, no edema Gastrointestinal (Abdomen): normal bowel sounds, soft, nontender, no he patosplenomegaly Results & Data Vital Signs (Past 12 Hours) Vital Signs Temp Pulse Resp BP Pulse Ox O2 Del Method 01/05/23 07:46 36.4 C L 52 L 18 146/78 H 94 Room Air 01/05/23 03:00 36.6 C 58 L 18 125/55 L 95 Room Air 01/04/23 22:58 36.5 C 55 L 18 157/76 H 97 Room Air Laboratory Results Hemoglobin 11.4. Hematocrit 33.4 electrolytes are stable. Electrolytes are stable. PG Care Time/CCT Total # of Minutes Spent Total Time Spent with Patient: Total time spent is greater than 50% in coordination of care (as documented) at patient's floor/unit and/or counseling patient: Coding Level of Care Code None Diagnoses Status post right knee replacement Z96.651
[2023-01-05] MEDS: ACETAMINOPHEN 500 MG TAB PO SCH ×3 (11:00→21:09)
[2023-01-05] MEDS: METHENAMINE HIPPURATE 1 GM TAB PO SCH (11:01)
[2023-01-05] MEDS: lisinopril 5 MG TAB PO SCH ×2 (11:01→21:12)
[2023-01-05] MEDS: DOCUSATE SODIUM 100 MG CAP PO SCH ×2 (11:03→21:12)
[2023-01-05] MEDS: FERROUS SULFATE 325 MG TAB PO SCH (11:03)
[2023-01-05] MEDS: MULTIVITAMIN TAB PO SCH (11:03)
[2023-01-05] MEDS: OMEGA-3 (PURIFIED FISH OIL) 1 GM CAP PO SCH (11:03)
[2023-01-05] MEDS: APIXABAN 2.5 MG TAB PO SCH (21:11)
[2023-01-05] MEDS: CHOLECALCIFEROL 1,000 UNITS 25 MCG TAB PO SCH (21:11)
[2023-01-05] MEDS: SIMVASTATIN 5 MG TAB PO SCH (21:13)
[2023-01-05] MEDS: SENNA 8.6 MG TAB PO SCH (21:13)
[2023-01-06] MEDS: LEVOTHYROXINE SODIUM 100 MCG TABLET PO SCH (06:09)
--- NOTE | 2023-01-06 07:56 | Surgery Progress Note ---
Date of Service January 06, 2023 Assessment & Plan (1) Status post right knee replacement: Plan: 82-year-old female postop day 2 from right knee replacement doing okay. Not tolerating narcotics. Having said that her pains been pretty well controlled on Tylenol. No chest pain. Frustrated that she can get around a little bit easier. Her leg is working well. She is neurologically intact. This is not anything unusual. Her expectations and expectations for recovery were bit excessive. I do think she be best served by rehab or group home facility stay. Plan: We are pretty long discussion this morning. Does she is a bit frustrated with her slow mobilization. Not unusual for need 2-year-old female with multiple medical issues and somewhat deconditioned. I think she be best served by rehab or group home facility stay. She really is hoping to avoid this. I will see how therapy goes today. Continue DVT prophylaxis including thigh- high teds SCDs and back on Eliquis. She is fully weightbearing as tolerated. See how therapy goes today. Admission and Anticipated Discharge Date Admission Date: January 04, 2023 Subjective 82-year-old female postop day 2 from right knee replacement. She is doing a little bit better this morning. She had been confused overnight and was trying to get out of bed. Had an adverse reaction to the narcotics. Had a lot of emesis and nausea yesterday with the pain medicine. Doing better this morning. No chest pain or shortness of breath. Not feeling dizzy or lightheaded. She is frustrated that she cannot walk better. Physical Exam Physical Exam: Physical examination reveals a pleasant elderly female. She is lying in bed I had to wake her this morning. Examination of the right leg reveals leg to be well aligned. Lumbert of bloody drainage from the dressing. She can dorsiflex and plantarflex her foot appropriately. She is neurologically intact. Results & Data Vital Signs (Past 12 Hours) Vital Signs Temp Pulse Resp BP Pulse Ox O2 Del Method 01/06/23 07:11 36.6 C 61 18 155/75 H 97 Room Air 01/05/23 21:49 36.5 C 61 18 156/77 H 96 Room Air 01/05/23 21:12 Room Air PG Care Time/CCT Total # of Minutes Spent Total Time Spent with Patient: Total time spent is greater than 50% in coordination of care (as documented) at patient's floor/unit and/or counseling patient: Coding Level of Care Code None Diagnoses Status post right knee replacement Z96.651
[2023-01-06] MEDS: OMEGA-3 (PURIFIED FISH OIL) 1 GM CAP PO SCH (08:35)
[2023-01-06] MEDS: MULTIVITAMIN TAB PO SCH (08:36)
[2023-01-06] MEDS: FERROUS SULFATE 325 MG TAB PO SCH (08:37)
[2023-01-06] MEDS: ASCORBIC ACID 500 MG TAB PO SCH ×2 (08:37→18:06)
[2023-01-06] MEDS: METHENAMINE HIPPURATE 1 GM TAB PO SCH (08:37)
[2023-01-06] MEDS: DOCUSATE SODIUM 100 MG CAP PO SCH ×2 (08:37→20:02)
[2023-01-06] MEDS: ACETAMINOPHEN 500 MG TAB PO SCH ×3 (09:48→20:08)
--- NOTE | 2023-01-06 11:19 | Hospitalist Consultation ---
Date of Consultation January 06, 2023 Assessment & Plan (1) Chest pain: -We were consulted by the organizational development director provider last night as a routine consult for a 3 second episode of left sided chest pain -Patient experienced approximately 3 seconds of left-sided chest pain at approximately 1730 yesterday while transferring from her recliner to her hospital bed -Patient expresses zero concern for this episode yesterday as she attributes it to musculoskeletal pain -ECG obtained yesterday shortly after the episode are without arrhythmia or acute ST segment or T-wave changes -She has been hemodynamically stable, without tachycardia, stable on RA, and without other episodes of chest discomfort since yesterday -At this time the most likely etiology of the patient's 3 second episode of left sided chest pain is musculoskeletal pain. -Low suspicion for cardiac or pulmonary source at this time -No need for further assessment/workup at this time as the patient is comfortable and stable -Thank you for allowing use to participate in the care of this patient, feel free to reach out with any other questions or concerns -Medicine will sign off at this time Plan The patient was discussed with Dr. Otero at the time of the consult Supervising Physician Co-Signing Physician Notes I personally saw and examined the patient. I verified all mendez points and agree with Jamal Doll PA-C with the following exceptions and/or additions: 82 year old POD#2 right TKA. Pt with 3 seconds of chest pain when twisting yesterday. HS RRR, no murmurs, Chest CTAB. No further investigations required for this. Thank you for the consult we will sign off at this time. Please direct any question/concerns to the [facility] hospitalist organizational development director [employer]. History of Present Illness Reason for Consultation: Chest Pain Requesting Physician: Deniz Saeed MD Attending Physician: Dr. Garret Otero History of Present Illness Irlanda is an 82 year old female with a PMH significant for HTN, DVT and PE (normally on Eliquis) diaphragmatic hernia, hypothyroidism, and dyslipidemia who presented to [facility] OR on 01/04 for scheduled Right Total Knee Arthroplasty with Dr. Deniz Saeed. Review of the patients vitals since 01/04. Per the operative report, EBL was listed as 50, anesthesia was listed as Spinal MAC, and there were no reported intraoperative complications. Our service received a consult for chest pain which the patient experienced on 01/05 at approximately 1730. Per the nurse note at that time, the nursing staff attempted to contact Dr. Deniz Saeed and his PA-C but did not receive a response. Because of this the nursing staff contacted the answering service and spoke with Dr. Abernathy who instructed them to consult the hospitalist service and obtain an ECG at 1740. An ECG was obtained 1806 and shows NSR with incomplete right bundle branch block. Unfortunately it appears that the [facility] Hospitalist Team was consulted despite the patient being a [facility] patient. Per discussions with the patients nurse this am, the patients chest pain appeared to be musculoskeletal and resolved after receiving analgesics last night. She has not experienced recurrence of her chest pain and denies SOB or other chest discomfort today. She has been afebrile, hemodynamically stable, and stable on RA since her chest discomfort yesterday. At the time of the exam the patient was lying in bed, she is anxious appearing but otherwise in no acute distress. When asked about her chest pain yesterday she first states "Oh that was nothing. I think that was just musculoskeletal pain that I had while transferring from my recliner to my hospital bed". She explains that she experienced a sharp pain in the left chest which lasted no more than 3 seconds". She explains that she stood up and was transferring from her recliner to her hospital bed. She denies other symptoms such as lightheadedness, dizziness, heart palpitations, SOB, hemoptysis, cough, nausea, vomiting, diarrhea, dysuria, hematuria, melena, LE swelling, recent falls/trauma. She states that she did experience nausea after receiving narcotics yesterday. Since they stopped using the narcotics her nausea resolved. Please refer to Dr. Otero's attestation for any changes to the treatment plan Allergies Allergy/AdvReac Type Severity Reaction Status Date / Time adhesive Allergy Unknown Redness Verified 01/04/23 11:24 (EKG patches if on for long periods) pollen extracts Allergy Unknown Eyes/throat Verified 01/04/23 11:24 itchy codeine AdvReac Unknown "Dopey" Verified 01/04/23 11:24 feeling erythromycin base AdvReac Unknown Nausea Verified 01/04/23 11:24 lorazepam AdvReac Unknown Nausea Verified 01/04/23 11:24 morphine AdvReac Unknown Hallucinati Verified 01/04/23 11:24 ons oxycodone AdvReac Unknown N/V Verified 01/04/23 11:24 prednisone AdvReac Unknown Extreme Verified 01/04/23 11:24 anxiety (with strong dose) propoxyphene AdvReac Unknown Nausea Verified 01/04/23 11:24 tramadol AdvReac Unknown "Loopy" Verified 01/04/23 11:24 feeling Home Medications Medication Instructions Recorded Confirmed Type flaxseed oil 1,000 mg capsule 1,000 mg PO QPM 12/05/20 01/04/23 History (Benedict-3 Flaxseed Oil) ferrous sulfate 325 mg (65 mg 325 mg PO QAM 04/13/21 01/04/23 History iron) tablet (iron) apixaban 2.5 mg tablet (Eliquis) 2.5 mg PO BID 01/09/22 01/04/23 History Synthroid 100 mcg tablet 100 mcg PO DAILY #90 tabs 05/07/22 01/04/23 Rx (levothyroxine) lisinopril 5 mg tablet 5 mg PO BID #180 tabs 08/06/22 01/04/23 Rx diclofenac sodium 1 % topical gel 2 g topical QID PRN Pain 10/25/22 01/04/23 History simvastatin 5 mg tablet 5 mg PO HS #90 tabs 11/14/22 01/04/23 Rx cholecalciferol (vitamin D3) 25 25 mcg PO HS 11/29/22 01/04/23 History mcg (1,000 unit) capsule (Vitamin D3) omega-3 fatty acids 1,000 mg PO DAILY 12/03/22 01/04/23 History albuterol sulfate 90 mcg/actuation 2 puff inhalation QID PRN 12/04/22 01/04/23 Rx aerosol inhaler shortness of breath or wheezing #6.7 grams amoxicillin 500 mg tablet 2,000 mg (4 x 500 mg) PO ONCE #4 12/04/22 01/04/23 Rx tabs methenamine hippurate 1 gram tablet 1 g PO HS #90 tabs 12/04/22 01/04/23 Rx acetaminophen 500 mg tablet 1,000 mg (2 x 500 mg) PO TID pain 01/02/23 01/04/23 Rx (Tylenol Extra Strength) 30 days #180 tabs cefadroxil 500 mg capsule 500 mg PO BID 7 days #14 caps 01/02/23 01/04/23 Rx hydromorphone 2 mg tablet 2 mg PO Q6 PRN pain #40 tabs 01/02/23 01/04/23 Rx ondansetron 4 mg disintegrating 4 mg PO Q8 PRN nausea #20 tabs 01/02/23 01/04/23 Rx tablet sennosides 8.6 mg tablet (Senokot) 8.6 mg PO BID prevent constipation 01/02/23 01/04/23 Rx 14 days #28 tabs Patient History Medical History H/O pulmonary hypertension mild residual after PE per [facility] cardio, echo updated 01/2022 with no evidence of pulmonary hypertension per report Difficult intravenous access Pt notes in past has been elevated to ultrasound assisted or port placement without success. Successful lab draw at PAT visit x 1 right antecubital Suspected sleep apnea Snoring, denies witnessed apneas. Denies sleep testing, pt feels she may have sleep apnea given snoring and would like suspected sleep apnea entered in art Aspiration into airway with EGD per pt Postoperative urinary retention 2013 after left TKA, notes she did well with hip surgeries History of COVID-19 2021, mild symptoms, no current symptoms History of urinary hesitancy "sometimes she has trouble going and sometimes she has incontinence"; f/u with urology in the past History of anesthesia reaction unable to urinate following surgery years ago after left TKA 2013, had to be cathed and self cath for weeks following. 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 zachariah hoffman, [employer] [facility] Anemia on iron supplementation Urinary tract infection hx-Multiple UTIs -12/2020 GERD (gastroesophageal reflux disease) Controlled, stable per pt Leg length discrepancy RLE 1.3cm longer than LLE Neuropathy Feet and legs (mild to moderate) Hyperlipidemia Tinnitus of right ear Sensorineural hearing loss (SNHL) of right ear with unrestricted hearing of left ear Hiatal hernia s/p surgical intervention Paraesophageal hiatal hernia Diaphragmatic hernia HTN (hypertension) controlled, stable per pt Pancreatitis Hx-not for a long time Pulmonary embolism post-op extensive pelvic surgery (1999), no issues since DVT (deep venous thrombosis) LLE (2017), RLE (2018) Low back pain with sciatica Surgical History (Updated 01/05/23 @ 08:18 by Deniz Saeed MD) Status post right knee replacement History of tubal ligation 1979 Status post left hip replacement 05/08/21 History of cystoscopy History of esophagogastroduodenoscopy (EGD) MULTIPLE History of colonoscopy History of right hip replacement 05/17/2015 [facility] Cystocele REPAIR OF AND RECTOCELE 1999 History of tonsillectomy and adenoidectomy 1952 Performed in [facility] H/O wisdom tooth extraction H/O: hysterectomy 1984 History of incisional hernia repair 07/2001 Dr. Richmond Chaney H/O removal of cyst 2005 S/P cataract surgery left 2013, right 2012 S/P YAG capsulotomy Left 11/02/2014 Right 06/08/2014 [facility] Hx of hernia repair 09/15/2010 diaphragmatic hernia, incisional hernia, umbilica, repair of paraesophageal hernia - laparoscopic, gastrectomy subtotal, lysis adhesions, esophagoscopy Dr. Bains S/P knee replacement left knee 01/19/2014 Dr. Gloria Frederick Family History Father Colon cancer Coronary arteriosclerosis Myocardial infarction Mother Cerebral atherosclerosis Coronary arteriosclerosis Stroke Myocardial infarction Sister Breast cancer H/O mastectomy Kidney cysts Other Family history non-contributory Denies family history of Ovarian cancer Prostate cancer Social History Smoking Status: Never smoker Second Hand Exposure: Yes (hx as child); Do You Dip or Chew Tobacco: No; Tobacco Cessation Education Requested by Patient: No Hx Alcohol Use: No Hx Substance Use: No Preferred Language: Citizen [place] Communication Ability: Effective Visual Impairment: No Limitations Hearing Ability: Normal Multimedia Engineer Required: No Beliefs That Will Affect Care: None marital status: / Current Living Situation: Family Current Living Situation Comment: with Son current occupational status: retired How many Children do You have: 2 Other Information That Helps Us Care for You: No Feels Safe at Home: Yes Safety Concerns: Feels Safe At This Time Childhood Exposure to Second-Hand Smoke: Yes Diet: regular Diet Comment: regular caffeine: No during the past year weight has: remained stable Dental Care, Regularly: Yes Physical Activity Frequency: Daily Seatbelt Use: always Sunscreen Use: No Assistive Devices: Stair Lift and Walker Physical Exam Physical Exam: Physical Exam: General: In no acute distress, stated age, well-nourished, good hygiene HEENT: Normocephalic, atraumatic, no scleral icterus, pupils around round, symmetrical, and reactive to light, moist mucus membranes, trachea midline, no thyromegaly Chest/Pulm: No respiratory distress, symmetrical chest expansion, clear breath sounds throughout Cardiac: RRR, no murmurs noted Abdomen: Negative for ascites and bruising, normoactive bowel sounds, soft, non-tender to palpation throughout Musculoskeletal: Patient with BL ERNESTO's in place, Right knee is currently wrapped with minimal dried blood over the surgical site but without signs of active drainage, patient with intact and symmetrical motor function and sensation in the BL LE's Extremities: Radial, dorsalis pedis, and posterior tibial pulses are intact and symmetrical, no edema noted in the BL LE's Skin: Warm, dry, no rashes , lesions, or scars noted Neuro: Alert and oriented to person, place, month, year, and president, no focal defects, CN II-XII tested and intact, no tremors noted Psych: Anxious due to concern of being discharged home too early from an o rthopedic perspective but denies concern for short episode of chest pain yesterday, calm and cooperative during the exam Results & Data Results & Data Vital Signs (Past 12 Hours) Vital Signs Temp Pulse Resp BP Pulse Ox O2 Del Method 01/06/23 07:11 36.6 C 61 18 155/75 H 97 Room Air Diagnostic Findings Knee X-Ray 01/04/23 14:31 XR knee RT 1 or 2V routine HISTORY: 82 years-old Female Surgical Post Op right knee arthroplasty COMPARISON: 12/03/2022 TECHNIQUE: 2 views of the right knee FINDINGS: Total joint arthroplasty with patellar resurfacing. Anterior midline skin joaquín with expected postoperative soft tissue swelling and deep tissue air. No acute fracture or malalignment. IMPRESSION: Total joint arthroplasty with expected postoperative changes. ACT 112: Negative or not required by law. The above report was generated using voice recognition software. It may contain grammatical, syntax or spelling errors. Electronically signed by: Ramiro Alcantar M.D. 01/04/2023 2:52 PM ECG Additional Comments: Normal sinus rhythm Incomplete right bundle branch block Borderline ECG When compared with ECG of 16-NOV-2022 18:46, No significant change was found PG Care Time/CCT Total # of Minutes Spent Total Time Spent with Patient: Total time spent is greater than 50% in coordination of care (as documented) at patient's floor/unit and/or counseling patient: Coding [place] [address] IN/OBS CONSULT LVL 3,45M Patient Type Established Medical Decision Making Low Complexity Diagnoses Chest pain R07.9
[2023-01-06] MEDS: lisinopril 5 MG TAB PO SCH ×2 (13:01→20:03)
[2023-01-06] MEDS: APIXABAN 2.5 MG TAB PO SCH ×2 (13:02→20:02)
[2023-01-06] MEDS: CHOLECALCIFEROL 1,000 UNITS 25 MCG TAB PO SCH (20:02)
[2023-01-06] MEDS: SENNA 8.6 MG TAB PO SCH (20:04)
[2023-01-06] MEDS: SIMVASTATIN 5 MG TAB PO SCH (20:04)
--- NOTE | 2023-01-06 22:08 | Electrocardiogram Report ---
Test Reason : Blood Pressure : / mmHG Vent. Rate : 069 BPM Atrial Rate : 069 BPM P-R Int : 176 ms QRS Dur : 108 ms QT Int : 398 ms P-R-T Axes : 048 -01 040 degrees QTc Int : 426 ms Normal sinus rhythm Incomplete right bundle branch block Borderline ECG When compared with ECG of 16-NOV-2022 18:46, No significant change was found Confirmed by Ney Dove ([id number]) on 01/06/2023 10:07:45 PM Referred By: Deniz Saeed Confirmed By:Ney Dove
[2023-01-07] MEDS: LEVOTHYROXINE SODIUM 100 MCG TABLET PO SCH (06:10)
--- NOTE | 2023-01-07 07:00 | Surgery Progress Note ---
Date of Service January 07, 2023 Assessment & Plan (1) Status post right knee replacement: Plan: 82-year-old female postop day 3 from a right knee replacement. She is doing better. Pain is controlled. She is neurologically intact. Have a little trouble getting around which is nothing unexpected in someone her age with this operation. She is elected to go to a rehab. Plan: 1. DVT prophylaxis including thigh-high teds, SCDs, back on her Eliquis. 2. PT OT. Weight-bear as tolerated. Right total knee protocol. 3. Pain control doing okay with current pain regimen. Regular limit narcotics to avoid nausea and side effects. 4. Disposition plan currently is to try and get her in to [facility]. Hopefully can get her there today. Admission and Anticipated Discharge Date Admission Date: January 06, 2023 Subjective 82-year-old female postop day 3 from a right knee replacement. She is doing quite a bit better this morning. More optimistic. Better attitude. Pains controlled. She is just feeling better. No nausea. No chest pain or shortness of breath. A little frustrated with her inability to get up and get around independently. Physical Exam Physical Exam: Physical examination the right leg reveals the dressing to be clean dry and intact. There is no drainage. Her leg looks well aligned. Calf is soft and supple. She can dorsiflex and plantarflex her foot appropriately. Results & Data Vital Signs (Past 12 Hours) Vital Signs Temp Pulse Resp BP Pulse Ox O2 Del Method 01/06/23 21:35 36.5 C 74 18 149/80 H 94 Room Air 01/06/23 20:02 Room Air PG Care Time/CCT Total # of Minutes Spent Total Time Spent with Patient: Total time spent is greater than 50% in coordination of care (as documented) at patient's floor/unit and/or counseling patient: Coding Level of Care Code None Diagnoses Status post right knee replacement Z96.651
[2023-01-07] MEDS: METHENAMINE HIPPURATE 1 GM TAB PO SCH (09:12)
[2023-01-07] MEDS: ACETAMINOPHEN 500 MG TAB PO SCH (09:12)
[2023-01-07] MEDS: FERROUS SULFATE 325 MG TAB PO SCH (09:13)
[2023-01-07] MEDS: ASCORBIC ACID 500 MG TAB PO SCH (09:14)
[2023-01-07] MEDS: DOCUSATE SODIUM 100 MG CAP PO SCH (09:15)
[2023-01-07] MEDS: OMEGA-3 (PURIFIED FISH OIL) 1 GM CAP PO SCH (09:15)
[2023-01-07] MEDS: MULTIVITAMIN TAB PO SCH (09:16)
--- NOTE | 2023-01-10 08:45 | Discharge Summary ---
Date of Service January 10, 2023 Discharge Data Procedures Performed Operation Date: 01/04/23 12:45 Actual Procedures p Right Total Knee Arthroplasty(Right) - Deniz Saeed MD Hospital Course (1) Status post right knee replacement: This is a 82 year old patient admitted on 01/04/23 and underwent total knee arthroplasty. She tolerated the procedure well and there were no complications. Transferred to the PACU post op and later to the orthopedic floor for further care. She was given ancef for antibiotic prophylaxis. She was also given ERNESTO stockings, SCDs, and eliquis for DVT prophylaxis. Hemoglobin, hematocrit, and vital signs were monitored during her hospital stay and remained stable. Did not require any blood transfusions. There were no complications during her hospital stay. She had one episode of brief chest pain. Hospitalist service was consulted, she had an ekg, and they felt that this was unlikely cardiac or pulmonary in nature, and did not recommend any additional work up. By post op day #3 the patient was tolerating a regular diet, pain was reasonably controlled but she did not tolerate the pain medicine very well. She was participating in physical therapy but had difficulty initially with her progress. On post op day #3 the patient was discharged to a rehab facility. She was given printed discharge instructions including prescriptions for extra strength tylenol, cefadroxil, zofran, senokot, and hydromorphone. Continue physical therapy, weight bearing as tolerated. Continue ERNESTO stockings. Follow up approximately 2 weeks post op or sooner if there are problems or concerns. Coding Level of Care Code None Diagnoses Status post right knee replacement Z96.651
--- OUTSIDE RECORDS SUMMARY | 2023-01-10 22:13 | External Medical Summary | Continuity of Care Document ---
Author Name Unknown Organization [id number] Address [address] [place] [phone] Care Team Providers Care Infertility Nurse Name Role Phone KirkPepito Primary Care Physician [phone] [facility]counter [id number] Date(s): 10/04/22 - 10/04/22 [facility] [id number] [address] [place] [id number] Encounter Diagnosis Cervical spine pain(Discharge Diagnosis) - 10/04/22 Discharge Disposition: Home or Self Care Attending Physician: MD Khanna Roberta L Allergies, Adverse Reactions, Alerts Substance Reaction Severity Status codeine Swelling Active erythromycin Nausea Active morphine Dizziness. Lightheadedness Diarrhea Nausea Active predniSONE extreme anxiety Active propoxyphene nausea Active Vicodin Rash Active Dust Active Pollen eyes and throat itchy Active Tape redness Active Trees Active lobster Nausea Active peanuts Abdominal pain Active LORazepam nausea Active oxyCODONE nausea and vomiting Active traMADol loopy Active Assessment and Plan Extracted from: Title:Office Visit Note Author:MD Jey, Franklin Tamez Date:10/04/22 1.Cervical spine pain Recommended trial of cervicalpillow when lying flat to avoid flexed spine posture which is how she is currently sleeping. Consider nightly soft cervical collar. Recommended physical therapy for mobility follow-up. Immunizations Given and Recorded Vaccine Date Status Refusal Reason SARS-CoV-2 (COVID-19) mRNA-1273 vaccine 05/12/20 R ecorded SARS-CoV-2 (COVID-19) mRNA-1273 vaccine 04/12/20 R ecorded Medications Advil 200 mg oral tablet Start: 01/28/18 14:09:00 EST, 2 tab, PO, q6h, PRN: as needed for arthritis Start Date: 01/28/18 Status: Ordered diclofenac 1% topical gel Start: 01/27/18 14:57:00 EST, 1 appl, topical, qid, PRN: Pain Start Date: 01/27/18 Status: Ordered Eliquis 2.5 mg oral tablet Start: 10/04/22 12:57:00 EDT Start Date: 10/04/22 Status: Ordered Feosol 325 mg (65 mg elemental iron) oral tablet Start: 01/27/18 14:56:00 EST, 1 tab, PO, Daily Start Date: 01/27/18 Status: Ordered Fish Oil 1200 mg oral capsule Start: 01/28/18 14:08:00 EST, 1 cap, PO, Daily Start Date: 01/28/18 Status: Ordered Flax Seed Oil oral capsule Start: 07/24/11 10:31:00, 1 tab, PO, Daily Start Date: 07/24/11 Status: Ordered Iron 100 Plus oral tablet Start: 01/25/15 9:33:00 Start Date: 01/25/15 Status: Ordered lisinopril 5 mg oral tablet Start: 12/19/17 12:54:00 EDT, 2 tab, PO, Daily Start Date: 12/19/17 Status: Ordered simvastatin 5 mg oral tablet Start: 07/24/11 10:30:00, 1 tab, PO, qhs Start Date: 07/24/11 Status: Ordered Synthroid 88 mcg (0.088 mg) oral tablet Start: 09/06/20 10:34:00 EDT, 90 unknown unit Start Date: 09/06/20 Status: Ordered Tylenol Start: 01/25/15 9:33:00 Start Date: 01/25/15 Status: Ordered Vitamin D3 1000 intl units oral capsule Start: 07/24/11 10:32:00 EDT, 1 cap, PO, bid Start Date: 07/24/11 Status: Ordered Mental Status 10/04/22 Barriers to Learning one year None evide nt Mandatory Health Literacy Documentation Yes Health Literacy Communication Barriers N ever Primary Language Honduran Problem List Condition Confirmation Course Effective Dates Status H ealth Status Informant AK (actinic keratosis) Confirmed Active Allergy Confirmed Active Anemia Confirmed Active Arthritis Confirmed Active Asthma Confirmed Active Enlarged heart Confirmed Active Chest pain Confirmed Active Depression Confirmed Active Thyroid disease Confirmed Active DVT 1 Confirmed Active SOB (shortness of breath) Confirmed Active Elevated cholesterol Confirmed Active Left foot pain Confirmed Active GERD (gastroesophageal reflux disease) Confirmed Active Hiatal hernia Confirmed Active Hypertension Confirmed Active Hypothyroidism Confirmed Active Arthritis, midfoot Confirmed Active Irregular heart beat Confirmed Active Right low back pain Confirmed Active Left lumbar radiculopathy Confirmed Active Pre-syncope Confirmed Active Neck pain Confirmed Active Osteoarthritis of left hip Confirmed Active Paraesophageal hiatal hernia Confirmed Active PE - Pulmonary embolism Confirmed Active Pneumonia Confirmed Active Polymyalgia rheumatica Confirmed Active SK (seborrheic keratosis) Confirmed Active Lumbar foraminal stenosis Confirmed Active Tinnitus Confirmed Active UTI (urinary tract infection) Confirmed Active Venous insufficiency of lower extremity Confirmed Active Ventricular bigeminy Confirmed Active V-tach Confirmed Active Weight gain Confirmed Active 1right leg Diagnosis Diagnosis Type Effective Dates Health Status Cl inical Service Informant Cervical spine pain Discharge Diagnosis 10/04/22 Procedures Procedure Date Related Diagnosis Body Site Status Pelvic 1999 Completed Anterior colporrhaphy for re pair of cystocele Completed Anterior gastropexy Compl eted Colonoscopy Completed Eye Completed Hysterectomy Completed incisional hernia repair Completed Knee Completed Repair of umbilical hernia Completed Tonsillectomy 2 Completed Tubal ligation Completed [place] tooth 3 Completed 1repair [id number] 3extraction in 1965 & 1967 Vital Signs Most recent to oldest [Reference Range]: 1 Height 178.2 cm (10/04/22 12:55 PM) Patient Weight 113.4 kg (10/04/22 12:55 PM) Body Mass Index 35.71 kg/m2 (10/04/22 12:55 PM) Social History Social History Type Response Smoking Status Never smoked cigaret soco Sex Female Outpatient Note * MD Jey, Gricel Tamez: PERFORM Event Display: .Outpt Note Authored Date: Chief Complaint Pain from neck to right shoulder x 13 days History of Present Illness Irlanda presents in follow-up fromcervical spine pain with a cane occasional radiation to theright trapezius region. This has been present without injury for approximately 2 weeks. She states she notes no pain below the shoulder elbow level but occasionally wakes up with pain in both wrists that quickly resolves withoutintervention. She is concerned that she will be undergoing right total knee arthroplasty this falland has difficulty lying flat without discomfort Physical Exam Vitals & Measurements HT:178.2cm WT:113.400kg(Dosing) WT:113.4kg BMI:35.71 General: Alert oriented affect and mood appropriate Neck: Prominent cervicothoracic junction that is tender to palpation there are no other spinous processes that are tenderthere is no palpable paravertebral trapezius spasm bilaterally, range of motion reveals decreased cervical extension and left lateral cervical flexionnegative Spurling sign Neuro: Upper extremity strength 5 out of 5 deltoids, triceps, biceps, wrist extension, interossei, DTRs 2+ biceps triceps brachial radialis, light touch sensation grossly intact upper extremities Diagnostic Results Review of September 2021 cervical spine x-ray reveals reversal of normal thoracic lordosis andmoderatedegenerative disc and joint disease throughout C3-C7 Assessment/Plan 1.Cervical spine pain Recommended trial of cervicalpillow when lying flat to avoid flexed spine posture which is how she is currently sleeping. Consider nightly soft cervical collar. Recommended physical therapy for mobility follow-up. Problem List/Past Medical History Ongoing AK (actinic keratosis) Allergy Anemia Arthritis Arthritis, midfoot Asthma Chest pain Depression DVT Elevated cholesterol Enlarged heart GERD (gastroesophageal reflux disease) Hiatal hernia Hypertension Hypothyroidism Irregular heart beat Left foot pain Left lumbar radiculopathy Lumbar foraminal stenosis Neck pain Osteoarthritis of left hip Paraesophageal hiatal hernia PE - Pulmonary embolism Pneumonia Polymyalgia rheumatica Pre-syncope Right low back pain SK (seborrheic keratosis) SOB (shortness of breath) Thyroid disease Tinnitus UTI (urinary tract infection) V-tach Venous insufficiency of lower extremity Ventricular bigeminy Weight gain Procedure/Surgical History Pelvic (1999)incisional hernia repairHysterectomyTubal ligationWisdom toothTonsillectomyEyeKneeRepair of umbilical herniaColonoscopyAnterior gastropexyAnterior colporrhaphy for repair of cystocele Medications acetaminophen(Tylenol) apixaban(Eliquis 2.5 mg oral tablet) cholecalciferol(Vitamin D3 1000 intl units oral capsule), 1000 Int_Unit= 1 cap, PO, bid diclofenac topical(diclofenac 1% topical gel), 1 appl, topical, qid, PRN ferrous sulfate(Feosol 325 mg (65 mg elemental iron) oral tablet), 325 mg= 1 tab, PO, Daily flax(Flax Seed Oil oral capsule), 1 tab, PO, Daily ibuprofen(Advil 200 mg oral tablet), 400 mg= 2 tab, PO, q6h, PRN levothyroxine(Synthroid 88 mcg (0.088 mg) oral tablet) lisinopril(lisinopril 5 mg oral tablet), 10 mg= 2 tab, PO, Daily multivitamin with iron(Iron 100 Plus oral tablet) omega-3 polyunsaturated fatty acids(Fish Oil 1200 mg oral capsule), 1200 mg= 1 cap, PO, Daily simvastatin(simvastatin 5 mg oral tablet), 5 mg= 1 tab, PO, qhs Allergies Dust LORazepamnausea Polleneyes and throat itchy Taperedness Trees VicodinRash codeineSwelling erythromycinNausea lobsterNausea morphineDizziness., Lightheadedness, Diarrhea, Nausea oxyCODONEnausea and vomiting peanutsAbdominal pain predniSONEextreme anxiety propoxyphenenausea traMADolloopy Social History Smoking Status Never smoked cigarettes Family History Arthritis: Father. Asthma: Sister. Cancer: Sister. Colon cancer..: Father. Depression.: Father. Heart disease: Mother and Father. High Blood Pressure: Mother. Kidney disease: Sister and Brother. Stroke: Mother. Health Status Family Member(s) Immunizations Vaccine Date Status SARS-CoV-2 (COVID-19) mRNA-1273 vaccine 05/12/2020 Recorded SARS-CoV-2 (COVID-19) mRNA-1273 vaccine 04/12/2020 Recorded Recommendations Health Maintenance Pending(in the next year) OverDue Adult Influenza Vaccine due09/01/22and every 1year Due Adult COVID-19 Vaccination due10/04/22Unknown Frequency Adult Tdap/Td Vaccine due10/04/22Unknown Frequency Medicare Annual Wellness Visit due10/04/22and every 1year Osteoporosis Screening due10/04/22One-time only Pneumococcal Vaccine Older Adults due10/04/22One-time only Shingles Vaccine due10/04/22One-time only Due In Future Body Mass Index not due until10/04/23and every 1year Satisfied(in the past 1 year) Satisfied Body Mass Index on10/04/22.Satisfied by DAVID Stauffer [place] Electronic Signature on File Electronically Reviewed/Signed by: Gricel Khanna MD Author Signature Dt/Tm:10/04/2022 01:31 PM Division of Sports Medicine [facility] Patient Care team information Care Team Personnel Name: GERMAINE Bradley Lester C Position: Referring Member Role: Primary Care Provider Address: Address: [address] [place] [address] [place] [address] Care Team Related Persons Name: KELLY MILLS Address: home [address] [place] [address], [place] [phone] Name: CHERYL MILLS Address: home [address] [place], [place] [id number] Name: CHERYL MILLS
== END 2023-01-07 11:39 | DRG 470 ==
LOC: 3E 10:57 → ASU 10:57
DX: I10 Essential (primary) hypertension; R07.89 Other chest pain; Z79.01 Long term (current) use of anticoagulants; D64.9 Anemia, unspecified; Z96.652 Presence of left artificial knee joint; E78.5 Hyperlipidemia, unspecified; Z96.643 Presence of artificial hip joint, bilateral; Z86.711 Personal history of pulmonary embolism; Z87.440 Personal history of urinary (tract) infections; Z91.048 Other nonmedicinal substance allergy status; Z88.8 Allergy status to other drugs, medicaments and biological substances; Z88.5 Allergy status to narcotic agent; M17.11 Unilateral primary osteoarthritis, right knee; Z86.718 Personal history of other venous thrombosis and embolism; E03.9 Hypothyroidism, unspecified; Z88.1 Allergy status to other antibiotic agents; Z79.890 Hormone replacement therapy; Z79.899 Other long term (current) drug therapy